=== PATIENT | male | born 1935 | race Caucasian/White ===

== ENCOUNTER → 2018-01-02 10:43 | Day surgery (SDC) | payer MEDICARE ==
[~2018-01-02 10:43] MED LIST: Buffered Lidocaine 0.9% SYRIN* 5 ML/SYR SYRINGE INTRADERM ONE; Lidocain 1% EPI 1:100,000 * 30 ML MDV ONE; Lidocaine 2% PF * 5 ML VIAL ONE; Mineral Oil Sterile, TOPICAL* 25 ML BTL ONE; Naloxone* 0.4 MG/ML 1 ML VIAL IV PRN; Phenylephrine INJ* 10 MG/ML 1 ML VIAL (10 MG) ONE; Propofol* 10 MG/ML 20 ML BTL IV PUSH ONE; ceFAZolin 2 GM PREMIX (*) 2 GM/50 ML BAG IVPB ONE; fentaNYL* 50 MCG/ML 2 ML VIAL (100 MCG VIAL) ONE
[2018-01-02 14:25] VITALS: BP 104/62
== END | disposition home or self-care (01) ==
LOC: OR 10:43
PROVIDERS: ATTEND Plastic Surgery
DX: C44.329 Squamous cell carcinoma of skin of other parts of face (principal); I25.10 Atherosclerotic heart disease of native coronary artery without angina pectoris; I10 Essential (primary) hypertension; Z95.5 Presence of coronary angioplasty implant and graft; Z85.828 Personal history of other malignant neoplasm of skin; Z68.35 Body mass index [BMI] 35.0-35.9, adult; Z87.891 Personal history of nicotine dependence; J30.2 Other seasonal allergic rhinitis
CPT/HCPCS: 88305; 88329; A9270-GY; J0690; J2704; J3010

== ENCOUNTER 2018-02-03 06:08 | Emergency (ER) | payer MEDICARE ==
--- NOTE | 2018-02-03 06:32 | ED ---
Lower Extremity - HPI Summary HPI Summary: Patient is an 82-year-old male who presents emergency department for left leg weakness 5 days. Patient currently resides at home with his sister who is present. Patient notes that about 5 days ago his left leg started feeling "wobbly." He states his leg we'll start no wobbly when he is walking and he has been using a cane on his left side which has rendered him from falling. Patient also notes he's had a headache over the last several days which is new for him. Patient states that this morning he did not have his cane and was walking when his left leg started feeling unsteady and he fell. No head injury or loss of consciousness. He states he's been able to ambulate since fall without pain. Patient doesn't history of back surgery denies increased pain or recent falls. Patient denies numbness, tingling or weakness in legs. No associate symptoms of change in mental status, facial drooping, upper extremity weakness. Past medical history of coronary artery disease, high blood pressure , high cholesterol. Takes 81mg ASA. Symptoms are moderate in severity. No current modifying factors. 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 Pain Intensity: 0 - Allergies/Home Medications Allergies/Adverse Reactions: Allergies Allergy/AdvReac Type Severity Reaction Status Date / Time adhesive Allergy Blisters Verified 02/03/18 06:18 Sulfa (Sulfonamide Allergy Stomach Verified 02/03/18 06:18 Antibiotics) Cramps tramadol Allergy nightmares Verified 02/03/18 06:18 PMH/Surg Hx/FS Hx/Imm Hx Previously Healthy: Yes Endocrine/Hematology History: Denies: Hx Anticoagulant Therapy, Hx Diabetes, Hx Thyroid Disease, Hx Anemia Cardiovascular History: Reports: Hx Angina, Hx Congestive Heart Failure, Hx Coronary Artery Disease, Hx Hypercholesterolemia, Hx Hypertension - W/MEDS, Hx Myocardial Infarction, Hx Pacemaker/ICD Denies: Hx Deep Vein Thrombosis, Hx Valvular Heart Disease, Other Cardiovascular Problems/Disorders Respiratory History: Reports: Hx Asthma, Hx Sleep Apnea Denies: Hx Chronic Obstructive Pulmonary Disease (COPD) GI History: Reports: Hx Gastroesophageal Reflux Disease, Other GI Disorders - inguinal hernia History: Reports: Hx Benign Prostatic Hyperplasia Denies: Hx Kidney Infection, Hx Kidney Stones, Hx Renal Disease, Other Problems/Disorders Musculoskeletal History: Reports: Hx Arthritis - all over, Hx Back Problems, Hx Bursitis, Hx Tendonitis, Other Musculoskeletal History - Left knee replaced, bone spurs neck had sx, Denies: Hx Gout Sensory History: Reports: Hx Cataracts - had sx recently, Hx Contacts or Glasses - glasses, Hx Hearing Problem - mild loss Denies: Hx Hearing Aid Opthamlomology History: Reports: Hx Cataracts - had sx recently, Hx Contacts or Glasses - glasses Neurological History: Denies: Other Neuro Impairments/Disorders Psychiatric History: Denies: Hx Suicide Attempt, Hx of Violent Episodes Against Others, Other Psychiatric Issues/Disorders - Cancer History Cancer Type, Location and Year: skin ca Hx Chemotherapy: No Hx Radiation Therapy: No Hx Palliative Cancer Treatment: No - Surgical History Surgery Procedure, Year, and Place: SPINAL SURGERY BONE SPURS REMOVED FROM NECK 1994 [place]. RIGHT CORONARY ATRERY STENT 1996 [place]. PACEMAKER AND 2009 [facility] [place]. TOTAL KNEE 2009 [place]. ROTATOR CUFF LEFT 1984 [facility]. inguinal hernia 25 yrs ago, [place] strong. EXCISION GROWTH LEFT HIP [place] 1992. hernia repair, 30 yrs ago Hx Anesthesia Reactions: No Infectious Disease History: No Infectious Disease History: Denies: History Other Infectious Disease, Traveled Outside the [place] in Last 30 Days - Social History Occupation: Retired Lives: With Family Alcohol Use: Rare Alcohol Amount: 1 q 2 months Substance Use Type: Reports: None Hx Tobacco Use: Yes Smoking Status (MU): Former Smoker Amount Used/How Often: 1/2 pack a day for 6 yrs Review of Systems Constitutional: Negative Negative: Fever, Chills Eyes: Negative ENT: Negative Cardiovascular: Negative Respiratory: Negative Gastrointestinal: Negative Positive: Other - Left leg weakness Positive: Other - Recent excision to posterior right upper leg Positive: Headache. Negative: Weakness, Paresthesia, Numbness, Syncope, Slurred Speech All Other Systems Reviewed And Are Negative: Yes Physical Exam Triage Information Reviewed: Yes Vital Signs On Initial Exam: Initial Vitals Temp Pulse Resp BP Pulse Ox 97.6 F 73 16 117/86 91 02/03/18 06:12 02/03/18 06:12 02/03/18 06:12 02/03/18 06:12 02/03/18 06:12 Vital Signs Reviewed: Yes Appearance: Positive: Well-Appearing - Pt. lying in bed in NAD. Pleasant and talkative. Daughter present. Skin: Positive: Warm, Dry, Other - Healing incision to posterior right upper leg without signs of infection. Head/Face: Positive: Normal Head/Face Inspection Eyes: Positive: Normal, EOMI Neck: Positive: Supple Respiratory/Lung Sounds: Positive: Clear to Auscultation, Breath Sounds Present Cardiovascular: Positive: Normal, RRR, Murmur Abdomen Description: Positive: Nontender, Soft Musculoskeletal: Positive: Other - 5/5 strength in bilateral LEs with flexion and dorsiflexion. No pain with pelvic rock or rotation of left hip. Neurological: Positive: Normal, Alert, Oriented to Person Place, Time, CN Intact II-III, Unable to Assess Gait, Facial Symmetry, Speech Normal. Negative : Receptive Aphasia, Expressive Aphasia, Cerebellar Dysfunction, Disoriented, Facial Droop, Slurred Speech Psychiatric: Positive: Affect/Mood Appropriate - Rosas Coma Scale Best Eye Response: 4 - Spontaneous Best Motor Response: 6 - Obeys Commands Best Verbal Response: 5 - Oriented Coma Scale Total: 15 Diagnostics - Vital Signs Vital Signs Temp Pulse Resp BP Pulse Ox 02/03/18 06:12 97.6 F 73 16 117/86 91 - Laboratory Result Diagrams: 02/03/18 07:21 02/03/18 07:21 Lab Statement: Any lab studies that have been ordered have been reviewed, and results considered in the medical decision making process. Lower Extremity Course/Dx - Course Course Of Treatment: Pt. presenting with h/a and weakness in his left leg. In the ER he has full strength in his legs and has no neurological deficits. Will obtain labs and CT brain. Pt. has no pain from recent fall and xrays no ordered. Labs are unremarkable other than milldy low mag. PO mag given. Case discussed with Dr. You who recommends outpt. neurology. I attempted to speak with pt.'s PCP, Dr. Quispe, but she has no returned call. Pt. to call her office today to set up a close f.u apt. and referral to neurology. Pt. to use his walker at home. He was able to ambulate in ER with walker without difficulty. Pt. to return to ER if sxs change or worsen. Pt. and sister understand and agree with plan. To continue home medications as directed. CT brain per radiology: IMPRESSION: No intracranial mass or hemorrhage. 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 - Diagnoses Provider Diagnoses: CVA, old, ataxia Discharge - Sign-Out/Discharge Documenting (check all that apply): Patient Departure - Discharge Plan Condition: Good Disposition: HOME Patient Education Materials: Stroke (DC) Referrals: Porter Rock MD [Medical Doctor] - Brandi Quispe MD [Primary Care Provider] - Additional Instructions: Call Dr. Quispe's office today to schedule a close follow up appointment for further evaluation and referral to neurology Use walker at home Continue home medications as directed Return to ER if symptoms change or worsen - Billing Disposition and Condition Condition: GOOD Disposition: Home
[2018-02-03 07:29] LABS: ABS Basophils 0.1 10^3/ul (0-0.2); ABS Eosinophils 0.2 10^3/ul (0-0.6); ABS Lymphocytes 1.8 10^3/ul (1.0-4.8); ABS Monocytes 0.6 10^3/ul (0-0.8); ABS Neutrophils 3.5 10^3/ul (1.5-7.7); ABS Nucleated RBC 0 10^3/ul; Eosinophil % 2.9 % (0-6); Hematocrit 39 % (42-52); Hemoglobin 13.5 g/dl (14.0-18.0); Lymphocyte % 29.2 % (25-47); Mean Corpuscular HGB Conc 34 g/dl (31-36); Mean Corpuscular Hemoglobin 30 pg (27-31); Mean Corpuscular Volume 88 fL (80-94); Mean Platelet Volume 9.3 um3 (7.4-10.4); Nucleated Red Blood Cells % 0.2; Platelet Count 126 10^3/ul (150-450); Red Blood Count 4.49 10^6/ul (4.00-5.40); Red Cell Distribution Width 15 % (10.5-15); White Blood Count 6.2 10^3/ul (3.5-10.8)
[2018-02-03 07:34] LABS: INR 0.96 (0.77-1.02)
--- NOTE | 2018-02-03 07:57 | RAD ---
Indication: Left leg weakness and headaches. CT of the brain performed without IV contrast. Ventricular structures are midline. No midline shift is noted. The extra-axial spaces are unremarkable. There is no evidence of intracranial mass or hemorrhage. Lacunar infarct is noted in the left basal ganglia. No other high or low density lesions are identified. IMPRESSION: No intracranial mass or hemorrhage. 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
[2018-02-03] MEDS ORDERED: Magnesium Oxide TAB* 400 MG PO ONE (08:22)
[2018-02-03 08:51] VITALS: BP 128/77
== END 2018-02-03 08:50 | disposition home or self-care (01) ==
LOC: ED 06:08
DX: R27.0 Ataxia, unspecified (principal); Z86.73 Personal history of transient ischemic attack (TIA), and cerebral infarction without residual deficits; R53.1 Weakness; Z87.891 Personal history of nicotine dependence
CPT/HCPCS: 36415; 70450; 80053; 83735; 85025; 85610; 99282

== ENCOUNTER → 2018-12-09 11:36 | Day surgery (SDC) | payer MEDICARE ==
[~2018-12-09 11:36] MED LIST changes: -Buffered Lidocaine 0.9% SYRIN* 5 ML/SYR SYRINGE INTRADERM ONE; +Buffered Lidocaine 1% SYRIN* 1 ML/SYRINGE INTRADERM ONE; +Bupivacaine 0.25% SDV PF* 10 ML VIAL INJ ONE; +Lactated Ringers 1000 ML Bag* 1,000 ML IV SCH; -Lidocain 1% EPI 1:100,000 * 30 ML MDV ONE; +Lidocaine 1% w EPI 1:100,000* 30 ML VIAL ONE; -Lidocaine 2% PF * 5 ML VIAL ONE; +Midazolam* 1 MG/ML 2 ML VIAL (2 MG) ONE; -Phenylephrine INJ* 10 MG/ML 1 ML VIAL (10 MG) ONE; -Propofol* 10 MG/ML 20 ML BTL IV PUSH ONE; +Propofol* 10 MG/ML 20 ML BTL ONE; -ceFAZolin 2 GM PREMIX (*) 2 GM/50 ML BAG IVPB ONE; +ceFAZolin 2 GM in NS PREMIX(*) 2 GM/100 ML BAG IVPB ONE
[2018-12-09 17:06] VITALS: BP 116/68
== END | disposition home or self-care (01) ==
LOC: OR 11:36
PROVIDERS: ATTEND Plastic Surgery
DX: C44.329 Squamous cell carcinoma of skin of other parts of face (principal); I48.0 Paroxysmal atrial fibrillation; Z95.0 Presence of cardiac pacemaker; Z79.01 Long term (current) use of anticoagulants; R53.82 Chronic fatigue, unspecified; I25.10 Atherosclerotic heart disease of native coronary artery without angina pectoris; Z87.891 Personal history of nicotine dependence; I10 Essential (primary) hypertension; Z86.73 Personal history of transient ischemic attack (TIA), and cerebral infarction without residual deficits; K21.9 Gastro-esophageal reflux disease without esophagitis; E78.5 Hyperlipidemia, unspecified
CPT/HCPCS: 88305; 88331; 88332; A9270-GY; J0690; J2250; J2704; J3010; J3490

== ENCOUNTER → 2019-01-27 05:30 | Day surgery (SDC) | payer MEDICARE ==
[~2019-01-27 05:30] MED LIST changes: +Dexamethasone IV* 4 MG/ML 1 ML (4 MG) ONE; +DiMENhydriNATE IV* 50 MG/ML VIAL IV PUSH PRN; +Famotidine IV* 10 MG/ML 2 ML (20 mg) IV ONE; +Famotidine IV* 10 MG/ML 2 ML (20 mg) ONE; +Levalbuterol 0.63MG/3ML NEB* UNIT OF USE INH PRN; -Lidocaine 1% w EPI 1:100,000* 30 ML VIAL ONE; +Lidocaine 2% PF * 5 ML VIAL ONE; -Midazolam* 1 MG/ML 2 ML VIAL (2 MG) ONE; +Midazolam* 1 MG/ML 5 ML VIAL (5 MG) ONE; -Mineral Oil Sterile, TOPICAL* 25 ML BTL ONE; +Ondansetron INJ* 2 MG/ML VIAL ONE; +ceFAZolin 2 GM PREMIX in ORs 2 GM/50 ML BAG ONE; -ceFAZolin 2 GM in NS PREMIX(*) 2 GM/100 ML BAG IVPB ONE; +fentaNYL* 50 MCG/ML 2 ML VIAL (100 MCG VIAL) IV PRN
[2019-01-27 09:19] VITALS: BP 124/80
== END | disposition home or self-care (01) ==
LOC: OR 05:30
PROVIDERS: ATTEND Plastic Surgery
DX: G56.02 Carpal tunnel syndrome, left upper limb (principal); I10 Essential (primary) hypertension; I25.10 Atherosclerotic heart disease of native coronary artery without angina pectoris; Z95.5 Presence of coronary angioplasty implant and graft; I48.0 Paroxysmal atrial fibrillation; J44.9 Chronic obstructive pulmonary disease, unspecified; Z86.73 Personal history of transient ischemic attack (TIA), and cerebral infarction without residual deficits; M19.90 Unspecified osteoarthritis, unspecified site; Z85.828 Personal history of other malignant neoplasm of skin; Z79.01 Long term (current) use of anticoagulants
CPT/HCPCS: J0690; J1100; J2250; J2405; J2704; J3010; J3490

== ENCOUNTER 2019-02-17 13:12 | Emergency (ER) | payer MEDICARE ==
--- OUTSIDE RECORDS SUMMARY | 2019-02-17 13:33 | XMS REPORT | Summary of Care ---
:1935 Author Organization [facility] Address [address] [facility] [place] [address] Care Team Providers Name Role Phone Brandi Quispe MD Primary Care Provider Reason for Visit Reason Comments Medication Check had CVA almost a year ago. Needs to get Eliquis from us. Need labs Medication Refill pending Encounter Details Date Type Department Care Team Description 01/07/2019 Office Visit [facility] Brandi Quispe MD PAF (paroxysmal atrial fibrillation) ([facility]) (Primary Dx); Medicine [address] Chronic obstructive pulmonary disease, unspecified COPD type ([facility]); [address] [place] [address] SOB (shortness of breath); [place] [address] Essential hypertension; [phone] Lumbar pain; TIA (transient ischemic attack); Coronary artery disease involving [place] coronary artery of [place] heart without angina pectoris Allergies Active Allergy Reactions Severity Noted Date Comments Sulfa Antibiotics 05/01/2004 "STOMACH CRAMPS" Tape: Silk Or Adhesive Rash 02/02/2016 Tramadol TURNER IN Reaction 04/27/2014 Bad dreams and constipaton documented as of this encounter (statuses as of 01/07/2019) Medications Medication Sig Dispensed Refills Start End Date Status Date aspirin (ECOTRIN) 81 Take 81 mg by 0 Active MG Oral Tab EC mouth DAILY. Diclofenac Sodium 1 % Place 4 g 1 Tube 3 Active Transdermal Gel onto skin 7 FOUR TIMES DAILY NEEDED (low back pain). fluticasone (FLONASE) [place] 2 1 Bottle 1 Active 50 MCG/ACT Nasal Sprays in 8 SuspensionIndications nose DAILY. : Rhinitis, unspecified type Tamsulosin HCl Take 1 Cap by 90 Cap 3 Active (FLOMAX) 0.4 MG Oral mouth DAILY. 8 Cap gabapentin Take 1 Cap by 270 Cap 1 Active (NEURONTIN) 100 MG mouth THREE 9 Oral CapIndications: TIMES DAILY. Lumbar pain pantoprazole Take 1 Tab by 90 Tab 1 Active (PROTONIX) 40 MG Oral mouth DAILY. 9 Tab ECIndications: Gastroesophageal reflux disease without esophagitis finasteride (PROSCAR) Take 1 Tab by 90 Tab 3 Active 5 MG Oral mouth DAILY. 9 TabIndications: Benign prostatic hyperplasia, unspecified whether lower urinary tract symptoms present simvastatin (ZOCOR) Take 1 Tab by 90 Tab 3 Active 40 MG Oral mouth EVERY 9 TabIndications: BEDTIME. Essential hypertension furosemide (LASIX) 20 Take 1 Tab by 90 Tab 3 Active MG Oral mouth DAILY 9 TabIndications: SOB NEEDED (shortness of breath) (swelling in feet). metoprolol succinate Take 0.5 Tabs 45 Tab 3 Active (TOPROL XL) 25 MG by mouth 9 Oral TABLET SR 24 DAILY. HRIndications: SOB (shortness of breath) apixaban (ELIQUIS) 5 Take 1 Tab by 180 Tab 3 Active MG Oral mouth TWICE 9 TabIndications: PAF DAILY. (paroxysmal atrial fibrillation) (HCC) METHOCARBAMOL PO Take by 0 01/08/20 Discontinued mouth. 19 mupirocin (BACTROBAN) Apply to open 22 g 1 01/08/20 Discontinued 2 % Apply externally areas BID 7 19 Ointment fluorouracil (EFUDEX) Apply thin 40 g 0 01/08/20 Discontinued 5 % Apply externally film to spots 7 19 CreamIndications: on hands and Actinic keratosis forearms twice daily. Minimum of 2 weeks and maximum of 4 weeks. apixaban (ELIQUIS) 5 Take by 0 01/08/20 Discontinued MG Oral Tab mouth TWICE 19 (Reorder) DAILY. 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 Meneses, 11/2006. Has 96% circumflex blockage that cannot be addressed surgically. Pacemaker 10/07/2007 Overview: Placed in 2001. Coronary stent 06/13/1996 Personal history of PA (myocardial infarction) 08/12/1995 Cardiac pacemaker in situ documented as of this encounter (statuses as of 01/07/2019) Resolved Problems Problem Noted Date Resolved Date Other specified pre-operative examination 02/07/2011 10/06/2013 documented as of this encounter (statuses as of 01/07/2019) Immunizations Name Administration Dates Next Due Depo Medrol (80mg) 11/01/2010 Influenza (IM) Preservative Free 04/08/2012, 02/21/2010 Influenza Vaccine High Dose 06/23/2015, 03/16/2014 Influenza Vaccine Whole 04/07/2007 PNEUMOCOCCAL POLYSACCHARIDE VACCINE 09/19/2016 Pneumococcal Conjugate(13 Valent) 04/27/2014 documented as of this encounter Social History Tobacco Use Types Packs/Day Years Used Date Former Smoker Cigarettes Quit: 05/13/1963 Smokeless Tobacco: Former User Comments: 1962 Alcohol Use Drinks/Week oz/Week Comments Yes 1 Glasses of wine 1.0 rare Sex Assigned at Date Recorded Not on file Job Start Date Occupation Industry Not on file Not on file Not on file Travel History Travel Start Travel End No recent travel history available. documented as of this encounter Last Filed Vital Signs Vital Sign Reading Time Taken Comments Blood Pressure 139/67 01/07/2019 1:22 PM EDT Pulse 85 01/07/2019 1:22 PM EDT Temperature - - Respiratory Rate - - Oxygen Saturation 93% 01/07/2019 1:22 PM EDT Inhaled Oxygen Concentration - - Weight 112 kg (247 lb) 01/07/2019 1:22 PM EDT Height 182.9 cm (6') 01/07/2019 1:22 PM EDT Body Mass Index 33.5 01/07/2019 1:22 PM EDT documented in this encounter Patient Instructions Patient InstructionsBrandi Quispe MD - 01/07/2019 1:40 PM EDTPlan conintue eliquis- Check on renal function today documented in this encounter Progress Notes Brandi Quispe MD - 01/07/2019 1:40 PM EDT NAME:Feliciano Bradshaw [birth year] ENC Date: 01/07/2019 CC: Chief Complaint Patient presents with Medication Check had CVA almost a year ago. Needs to get Eliquis from us. Need labs Medication Refill pending Feliciano Bradshaw is a 83-y.o. male Last note from Dr Meneses sanctioned ontinued use of eliquis for diagnosis of Paroxysmal atrial fibrillation - 2. Doing better after back surgery- also getting shots in the sacroiliac joint - 3. Following with consulting psychologist Current Outpatient Medications Medication Sig apixaban (ELIQUIS) 5 MG Oral Tab Take 1 Tab by mouth TWICE DAILY. aspirin (ECOTRIN) 81 MG Oral Tab EC Take 81 mg by mouth DAILY. Diclofenac Sodium 1 % Transdermal Gel Place 4 g onto skin FOUR TIMES DAILY NEEDED (low back pain). finasteride (PROSCAR) 5 MG Oral Tab Take 1 Tab by mouth DAILY. fluticasone (FLONASE) 50 MCG/ACT Nasal Suspension [place] 2 Sprays in nose DAILY. furosemide (LASIX) 20 MG Oral Tab Take 1 Tab by mouth DAILY NEEDED ( swelling in feet). gabapentin (NEURONTIN) 100 MG Oral Cap Take 1 Cap by mouth THREE TIMES DAILY. metoprolol succinate (TOPROL XL) 25 MG Oral TABLET SR 24 HR Take 0.5 Tabs by mouth DAILY. pantoprazole (PROTONIX) 40 MG Oral Tab EC Take 1 Tab by mouth DAILY. simvastatin (ZOCOR) 40 MG Oral Tab Take 1 Tab by mouth EVERY BEDTIME. Tamsulosin HCl (FLOMAX) 0.4 MG Oral Cap Take 1 Cap by mouth DAILY. No current facility-administered medications for this visit. Patient Active Problem List Diagnosis Date Noted Cardiac pacemaker in situ Priority: High CAD (coronary artery disease) 10/07/2007 Priority: High S/P catheterization, Dr. Meneses, 11/2006. Has 96% circumflex blockage that cannot be addressed surgically. 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 Personal history of PA (myocardial infarction) 08/12/1995 Family History Problem Relation Age of Onset Seizures Mother Parkinson's Arthritis Mother Heart Mother Heart Disease Mother Heart Father Skin Cancer Father Heart Disease Father Arthritis Father Hypertension Father Cancer Father Stroke Father Clotting Disorder Father Arthritis Sister Arthritis Brother Arthritis Maternal Grandfather Anesth Problems No family history Diabetes No family history Kidney Disease No family history Thyroid Disease No family history No cardiopulmonary symptoms No upper or lower GI complaints No urinary tract symptoms. No bruising/ bleeding. No neurological complaints . No insomnia.+ . Social History Tobacco Use Smoking status: Former Smoker Types: Cigarettes Last attempt to quit: 05/13/1963 Years since quittin.6 Smokeless tobacco: Former User Tobacco comment: 1962 Substance Use Topics Alcohol use: Yes Alcohol/week: 1.0 standard drinks Types: 1 Glasses of wine per week Comment: rare Drug use: No Types: Prescription OBJECTIVE: BP 139/67 | Pulse 85 | Ht 6' (1.829 m) | Wt 247 lb (112 kg) | SpO2 93% | BMI 33.50 kg/m . Heent Negative Facial skin - Lot of lesions Neck no JVD, thyromegaly or bruit Lungs Clear CV rrr Abd soft, nontender, no organomegaly Ext 1+ edema; no lesions Neuro: intellect intact ; motor including gait unremarkable A/P ICD-9-CM ICD-10-CM 1. PAF (paroxysmal atrial fibrillation) ([facility]) 427.31 I48.0 apixaban (ELIQUIS) 5 MG Oral Tab BASIC METABOLIC PANEL BASIC METABOLIC PANEL CBC WITH DIFFERENTIAL 2. Chronic obstructive pulmonary disease, unspecified COPD type ([facility]) 496 J44.9 3. SOB (shortness of breath) 786.05 R06.02 4. Essential hypertension 401.9 I10 5. Lumbar pain 724.2 M54.5 6. TIA (transient ischemic attack) 435.9 G45.9 7. Coronary artery disease involving [place] coronary artery of [place] heart without angina pectoris 414.01 I25.10 Patient Instructions Plan conintue eliquis- Check on renal function today AUTHOR: Brandi Quispe MD 14:11 01/07/2019 documented in this encounter Plan of Treatment Name Type Priority Associated Diagnoses Order Schedule BASIC METABOLIC PANEL Lab Routine PAF (paroxysmal atrial Expected: 2018 fibrillation) ([facility]) (Approximate), Expires: 07/06/2019 BASIC METABOLIC PANEL Lab Routine PAF (paroxysmal atrial Expected: 2018 fibrillation) ([facility]) (Approximate), Expires: 07/06/2019 CBC WITH DIFFERENTIAL Lab Routine PAF (paroxysmal atrial Expected: 2018 fibrillation) ([facility]) (Approximate), Expires: 07/06/2019 Health Maintenance Due Date Last Done Comments HIV SCREENING 1950 ZOSTER IMMUNIZATION SERIES 1986 (1 of 2) MEDICARE ANNUAL WELLNESS 04/08/2013 04/08/2012 VISIT INFLUENZA VACCINE (#1) 2019 06/23/2015, 03/16/2014, 04/08/2012, Additional history exists COLONOSCOPY SCREENING 04/20/2019 04/20/2014, 04/17/2011, 04/02/2006, Additional history exists DEPRESSION SCREENING 01/08/2020 01/07/2019 FALL RISK ASSESSMENT 01/08/2020 01/07/2019, 01/07/2019 PNEUMOCOCCAL 65+YRS Completed 09/19/2016, 04/27/2014 HPV IMMUNIZATION SERIES Aged Out No longer eligible based on patient's age to complete this topic MENINGOCOCCAL VACCINE IMM Aged Out No longer eligible based on patient's age to complete this topic documented as of this encounter Goals Goal Patient Goal Associated Recent Patient-Stated? Author Type Problems Progress Blood Pressure Blood Pressure 139/67 No Jose Enrique, < 150/90 (01/07/2019 MD Brandi 1:22 PM EDT) Note: This is an individualized treatment (blood pressure) goal for Feliciano Bradshaw: Displayed above (on the left) is your goal for blood pressure control. Your most recent blood pressure is also shown above, on the right. You should try to achieve blood pressures that are lower than your goal listed above (on the left). Weight loss vs. 18 mo max Lifestyle 0 (01/07/2019 1:22 PM EDT) No Brandi Quispe MD (lbs) >= 10 Note: This is an individualized lifestyle goal for Feliciano Bradshaw: Your body mass index (BMI) is more than 30. You should lose weight. A reasonable starting goal is to lose 10 pounds. Displayed above is how many pounds you have lost thus far towards your 10 pound weight loss goal. Keep immunizations current Lifestyle No Brandi Quispe MD Note: This is an individualized lifestyle goal for Feliciano Bradshaw: Please be sure to keep up-to-date on recommended immunizations. For example, this would include a yearly influenza vaccine. Immunization status can be seen by looking at the Health Maintenance sections of your [facility], Plan of Care, and any After Visit Summaries. Take all prescribed medications as directed Self-management No Brandi Quispe MD Note: This is an individualized self-management goal for Feliciano Bradshaw: Please take all prescribed medications as directed. 1. Do not skip doses. If you cannot afford your medications, talk with your doctor. 2. Use a pill reminder system such as a pill box if needed. Your pharmacist can help you with this. 3. Contact your Pharmacy 5 days before your medication runs out. If you cannot take your medications for any reasons, talk with your doctor. 4. Please bring all of your medication bottles and inhalers (or a list of all your medications/inhalers) with you to every visit. Potential barriers to meeting all of your care plan goals will continue to be addressed on an ongoing basis. documented as of this encounter Implants Implanted Type Area Medical Radiation Tech Device Shelf Model / Identifier Expiration Serial / Lot Date Bone Cement, Double 80gm - [id number] Left: DEPUY [id number] / Implanted: Qty: 1 on 02/06/2011 at [facility] Knee / [id number] Lps-Flex Taper Plugs - [id number] Left: [facility] / Implanted: Qty: 1 on 02/06/2011 at [facility] [employer]nee [employer] / [id number] Lps-Flex Option Femoral F Left - [id number] Left: ELISABET NICOLE 5964- [id number] / Implanted: Qty: 1 on 02/06/2011 at [facility] [employer] / [id number] Tibial Plate Size 6 Nexgen - [id number] Left: ELISABET RIVERA [id number]- 02 / Implanted: Qty: 1 on 02/06/2011 at [facility] [employer] / [id number] Art Surface 10mm Green - [id number] Left: [facility] / Implanted: Qty: 1 on 02/06/2011 at [facility] [employer] / [id number] documented as of this encounter Results Not on filedocumented in this encounter Visit Diagnoses Diagnosis PAF (paroxysmal atrial fibrillation) (HCC) - Primary Atrial fibrillation Chronic obstructive pulmonary disease, unspecified COPD type (HCC) SOB (shortness of breath) Shortness of breath Essential hypertension Unspecified essential hypertension Lumbar pain Lumbago TIA (transient ischemic attack) Unspecified transient cerebral ischemia Coronary artery disease involving [place] coronary artery of [place] heart without angina pectoris documented in this encounter Insurance Payer Benefit Plan / Subscriber ID Effective Dates Phone Address Type Group [facility] xxxxxxxxxxx 2016-Present [facility] OPTIONS MEDICARE MEDICARE PART A xxxxxxxxxxx 2001-Present Medicare & B (Home) [address] [phone] [place], [place] (Work) [id number] documented as of this encounter
--- NOTE | 2019-02-17 14:02 | ED ---
Shortness of Breath - HPI Summary HPI Summary: 83 year old M brought in by EMS to [facility] accompanied by sister Marimar complains of shortness of breath since 2 days ago (02/15/19), worse since today 02/17/19. Patient reports productive cough, diaphoresis, mild dizziness lasting several minutes which has since resolved since this morning. Sister reports one episode of diarrhea this morning. Sister states that patient "looked pink" this morning. He denies fever, chest pain, chest pressure, nausea/vomiting, bilateral calf pain, swelling of bilateral lower extremities, abdominal pain. Sister states that she took patient's blood pressure today 02/17/19 and it was hypotensive. Sister states that she used an automatic wrist cuff to measure his blood pressure which was 76/58. Sister states that she then took a manual blood pressure reading which was 80/60. Sister states HR 68 and irregular rhythm ( skipping beats). Sister states respiration 20. PMHx: atrial fibrillation, [employer] pacemaker. PMHx: CA. Patient states that when he had his CA, he had a pulsating sensation in his left neck and pain in between his bilateral shoulders. Patient states he feels the pulsating sensation in his right neck today 02/17/19 but not the pain in between his bilateral shoulders. Patient states he does not wear nasal cannula oxygen at home. Sister states he arrived to the ED wearing 4L nasal cannula oxygen. Patient is wearing 2L nasal cannula oxygen in room. Denies PMHx pneumonia. Patient has not received influenza vaccination yet. Sister states that they called Dr. Meneses, patient's primary care provider, who referred patient to the ED. The patient rates the pain 0/10 in severity per nurse triage note. Symptoms aggravated by nothing. Symptoms alleviated by nothing. Vital signs while in room: HR 63 BPM, BP 129/78, O2 sat 96% with 2L oxygen nasal cannula, O2 sat 97% without 2L oxygen nasal cannula Home Medications Medication Instructions Recorded Confirmed Type Finasteride [Proscar] 5 mg PO QAM 07/31/12 02/17/19 History Tamsulosin CAP* [Flomax CAP*] 0.4 mg PO QAM 06/24/14 02/17/19 History Acetaminophen TAB* [Tylenol TAB*] 325 mg PO QAM 12/26/17 02/17/19 History Aspirin 81 mg CHEW TAB* 81 mg PO QAM 12/26/17 02/17/19 History Cetirizine* [ZyrTEC 10 MG TAB*] 10 mg PO QAM 12/26/17 02/17/19 History Fluticasone NASAL SPRAY 50MCG* 1 spray BOTH NARES DAILY PRN 12/26/17 02/17/19 History [Flonase NASAL SPRAY 50MCG*] Furosemide [Lasix] 10 mg PO QAM 12/26/17 02/17/19 History Gabapentin [Neurontin] 100 mg PO QAM 12/26/17 02/17/19 History Metoprolol Succinate 12.5 mg PO QAM 12/26/17 02/17/19 History Simvastatin [Zocor] 40 mg PO QPM 12/26/17 02/17/19 History Apixaban* [Eliquis*] 5 mg PO BID 11/25/18 02/17/19 History Calcium Carbonate CHEW TAB* [Tums*] 500 mg PO BID 02/17/19 02/17/19 History Diclofenac 1% GEL (NF) [Voltaren 1 applic TOPICAL DAILY 02/17/19 02/17/19 History 1% GEL (NF)] Pantoprazole TAB * [Protonix TAB*] 40 mg PO DAILY 02/17/19 02/17/19 History - History of Current Complaint Chief Complaint: EDShortnessOfBreath Time Seen by Provider: 02/17/19 13:51 Hx Obtained From: Patient, Family/Steam Hoist Operator - sister Marimar, [facility] Onset/Duration: Gradual Onset, Lasting Days - 2 (02/15/19), Still Present, Worse Since - today 02/17/19 Timing: Constant Current Severity: None Dyspnea At: Exertion Aggravating Factors: Nothing Alleviating Factors: Nothing Associated Signs & Symptoms: Cough (Productive), Diaphoresis - Allergy/Home Medications Allergies/Adverse Reactions: Allergies Allergy/AdvReac Type Severity Reaction Status Date / Time adhesive Allergy Intermediate Blisters Verified 02/17/19 13:40 Sulfa (Sulfonamide Allergy Mild Stomach Verified 02/17/19 13:40 Antibiotics) Cramps tramadol Allergy Mild nightmares Verified 02/17/19 13:40 Home Medications: Home Medications Calcium Carbonate CHEW TAB* [Tums*] 500 mg PO BID 02/17/19 [History Confirmed ] Diclofenac 1% GEL (NF) [Voltaren 1% GEL (NF)] 1 applic TOPICAL DAILY 02/17/19 [ History Confirmed 02/17/19] Pantoprazole TAB * [Protonix TAB*] 40 mg PO DAILY 02/17/19 [History Confirmed ] PMH/Surg Hx/FS Hx/Imm Hx Previously Healthy: No Endocrine/Hematology History: Denies: Hx Anticoagulant Therapy, Hx Bone Marrow Disease, Hx Diabetes, Hx Sickle Cell Disease, Hx Thyroid Disease, Hx Anemia Cardiovascular History: Reports: Hx Atrial Fibrillation, Hx Coronary Artery Disease, Hx Hypercholesterolemia, Hx Hypertension - on medication for, Hx Myocardial Infarction, Hx Pacemaker/ICD - [employer] Denies: Hx Angina, Hx Cardiomegaly, Hx Congestive Heart Failure, Hx Deep Vein Thrombosis, Hx Peripheral Vascular Disease, Hx Rheumatic Fever, Hx Valvular Heart Disease Respiratory History: Denies: Hx Asthma, Hx Chronic Obstructive Pulmonary Disease (COPD), Hx Pulmonary Edema, Hx Pulmonary Embolism GI History: Reports: Hx Gastroesophageal Reflux Disease - on medication for, Hx Hiatal Hernia, Other GI Disorders - inguinal hernia Denies: Hx Cirrhosis, Hx Crohn's Disease, Hx Irritable Bowel, Hx Jaundice, Hx Ulcer History: Reports: Hx Benign Prostatic Hyperplasia Denies: Hx Kidney Infection, Hx Kidney Stones, Hx Renal Disease, Other Problems/Disorders Musculoskeletal History: Reports: Hx Arthritis, Hx Back Problems, Other Musculoskeletal History - spinal stenosis, carpal tunnel Denies: Hx Bursitis, Hx Gout, Hx Tendonitis Sensory History: Reports: Hx Cataracts, Hx Contacts or Glasses - glasses, Hx Hearing Problem - mild loss Denies: Hx Glaucoma, Hx Hearing Aid Opthamlomology History: Reports: Hx Cataracts, Hx Contacts or Glasses - glasses Denies: Hx Glaucoma Neurological History: Reports: Hx CVA Denies: Hx Headaches, Hx Migraine, Hx Nerve Disease, Hx Seizures Psychiatric History: Denies: Hx Anxiety, Hx Depression, Hx Suicide Attempt, Hx of Violent Episodes Against Others, Other Psychiatric Issues/Disorders - Cancer History Cancer Type, Location and Year: skin ca Hx Chemotherapy: No Hx Radiation Therapy: No Hx Palliative Cancer Treatment: No - Surgical History Surgery Procedure, Year, and Place: SPINAL SURGERY BONE SPURS REMOVED FROM NECK 1994 [place]. RIGHT CORONARY ATRERY STENT 1996 [place]. PACEMAKER AND 2009 [facility] [place]. Left TOTAL KNEE 2009 [place]. ROTATOR CUFF LEFT 1984 [facility]. inguinal hernia 25 yrs ago, [place]. Right hip growth and fluid removal--,2015 ,2016. Left hip growth and fluid removal--1992. EXCISION GROWTH LEFT HIP [place] 1992. hernia repair, 30 yrs ago. left knee Hx Anesthesia Reactions: No Infectious Disease History: No Infectious Disease History: Denies: Hx Hepatitis, History Other Infectious Disease, Traveled Outside the [place] in Last 30 Days - Family History Known Family History: Positive: Cardiac Disease - coronary artery disease in both parents - Social History Alcohol Use: Rare Alcohol Amount: monthly Substance Use Type: Reports: None Hx Tobacco Use: Yes Smoking Status (MU): Former Smoker Type: Cigarettes Amount Used/How Often: 1/2 pack a day for 6 yrs Have You Smoked in the Last Year: No Review of Systems Positive: Skin Diaphoresis. Negative: Fever Positive: Other - pulsating sensation in right neck Cardiovascular: Negative - Chest pressure Positive: Other - hypotension. Negative: Chest Pain Positive: Shortness Of Breath, Cough Positive: Diarrhea. Negative: Abdominal Pain, Vomiting, Nausea Positive: no symptoms reported Musculoskeletal: Negative - bilateral calf pain, swelling of bilateral lower extremities, pain in between his bilateral shoulders Skin: Negative Neurological: Other - Dizziness Psychological: Normal All Other Systems Reviewed And Are Negative: Yes Physical Exam - Summary Physical Exam Summary: Appearance: Well-appearing, minimal pain distress due to right side of neck discomfort, obese, patient is wearing nasal cannula Skin: Warm, color reflects adequate perfusion, dry, multiple excoriated and crusted lesions on his face and extremities Head: Normal Head/Face inspection, atraumatic, dark lesion on right cheek on level of zygoma Eyes: Conjunctiva clear ENT: Normal inspection Neck: Supple, no nodes, no JVD, no bruits Respiratory: Decreased breath sounds, no respiratory distress Cardio: RRR, No murmur, pulses normal, brisk capillary refill, pacemaker in his left upper chest Abdomen: Soft, nontender Bowel sounds: Present Musculoskeletal: Strength Intact/ROM intact, no calf tenderness, no edema. Psychological: Normal Neuro: Alert, muscle tone normal, no focal deficit Triage Information Reviewed: Yes Vital Signs On Initial Exam: Initial Vitals Temp Pulse Resp BP Pulse Ox 98.0 F 71 12 103/72 96 02/17/19 13:19 02/17/19 13:19 02/17/19 13:19 02/17/19 13:19 02/17/19 13:19 Vital Signs Reviewed: Yes Procedures - Sedation Patient Received Moderate/Deep Sedation with Procedure: No Diagnostics - Vital Signs Vital Signs Temp Pulse Resp BP Pulse Ox 02/17/19 13:19 98.0 F 71 12 103/72 96 - Laboratory Result Diagrams: 02/17/19 14:31 02/17/19 14:31 Lab Statement: Any lab studies that have been ordered have been reviewed, and results considered in the medical decision making process. - Radiology CXR Radiology Interpretation Completed By: Radiologist Summary of Radiographic Findings: NO ACTIVE CARDIOPULMONARY DISEASE. ED physician has reviewed this report. - CT Chest CTA CT Interpretation Completed By: Radiologist Summary of CT Findings: 1. Pacemaker in position. 2. Negative CTA chest. No pulmonary embolism is identified. ED physician has reviewed this report. - EKG 1431 Cardiac Rate: NL - 76 BPM, Other Rate - 100% paced ST Segment: Non-Specific Ectopy: None EKG Comparison: No Significant Change - 06/23/14 Summary of EKG Findings: An EKG at 14:10 reveals 100% paced at 76 BPM. No acute changes. Similar to prior EKG on 06/23/14. ED MD has reviewed and interpreted this EKG. 1842 Cardiac Rate: NL - 65 BPM, Other Rate - 100% paced ST Segment: Non-Specific Ectopy: None EKG Comparison: No Significant Change - EKG on 02/17/19 at 14:31 Summary of EKG Findings: An EKG at 18:42 reveals 100% paced at 65 BPM. No acute changes. Similar to prior EKG on 02/17/19 at 14:31. ED MD has reviewed and interpreted this EKG. Re-Evaluation - Re-Evaluation First Eval Re-Evaluation Time: 16:04 Change: Unchanged Comment: nurse Maricruz states she spoke with [employer] who states that his pacemaker is fine Second Eval Re-Evaluation Time: 18:26 Change: Unchanged Comment: BP is fluctuating from 97/63 to 130/80. Sister states more paced beats than usual. Patient denies chest pain, shortness of breath while sitting in stretcher. We will check CTA, repeat EKG, troponin Third Eval Re-Evaluation Time: 21:52 Change: Unchanged Comment: patient given CTA Chest and repeat EKG findings. he is agreeable to discharge Fourth Eval Re-Evaluation Time: 22:03 Change: Improved Comment: patient is ambulating in the ED on RA without drop in O2 sats below 92% , and without chest pain Course/Dx - Course Course Of Treatment: 83 year old M brought in by EMS to [facility] accompanied by sister Marimar complains of shortness of breath since 2 days ago (02/15/19), worse since today 02/17/19. Patient reports productive cough, diaphoresis, mild dizziness lasting several minutes which has since resolved since this morning. Sister reports one episode of diarrhea this morning. Sister reports hypotension. Patient reports pulsating sensation in neck similar to when he had CA. Physical exam findings: The patient is well-appearing, in minimal pain distress due to right side of neck discomfort, obese, wearing nasal cannula. He has multiple excoriated and crusted lesions on his face and extremities. He has a dark lesion on right cheek on level of zygoma. He has a pacemaker in his left upper chest. He has decreased breath sounds. Patient medications reviewed this visit. Nurses notes reviewed. Allergies noted. Bloodwork results with no significant abnormalities except for INR 1.26, BUN 25, BUN/creatinine 24.8, glucose 109, BNP 138, total protein 6.1. Troponin I is 0.01. Urinalysis results with no significant abnormalities except for ascorbic acid. Rapid flu tests negative for Influenza A and B. An EKG at 14:10 reveals 100% paced at 76 BPM. No acute changes. Similar to prior EKG on 06/23/14. ED MD has reviewed and interpreted this EKG. CXR shows, per radiologist: NO ACTIVE CARDIOPULMONARY DISEASE. ED MD has reviewed this report. [employer] pacemaker interrogation was fine per nurse Maricruz who spoke with Shukri from [employer]. BP continues to fluctuate from 97/63 to 130/80 in the ED. Sister states more paced beats than usual on the monitor in the ED as she is with patient. Patient denies chest pain , shortness of breath while sitting in stretcher. We will check CTA, repeat EKG , troponin. CTA shows, per radiologist: 1. Pacemaker in position. 2. Negative CTA chest. No pulmonary embolism is identified. Repeat EKG done at 18:42 reveals 100% paced at 65 BPM. No acute changes. Similar to prior EKG on 02/17/19 at 14:31. ED MD has reviewed and interpreted this EKG. Troponin II at 18:42 is 0.01. Pt was able to ambulate in the ED without oxygen, twice around the ED, without O2 sats dropping below 92%. The patient feels better and would like to go home. Patient will be discharged home with follow up from Dr. Quispe, his primary care provider, in 2-3 days. He was given a copy of his imaging and lab findings. Patient was instructed to return to Emergency Department for new or worsening symptoms. Patient understands and is agreeable to this plan. SisterMarimar is also agreeable with this plan. - Diagnoses Provider Diagnoses: Dyspnea, Encounter for care of pacemaker, History of hypotension Discharge ED - Sign-Out/Discharge Documenting (check all that apply): Patient Departure - Discharge - Discharge Plan Condition: Stable Disposition: HOME Patient Education Materials: Dyspnea (ED) Referrals: Brandi Quispe MD [Primary Care Provider] - 2 Days Additional Instructions: We gave you a copy of your studies done today. We did not find any serious or emergency condition to explain your shortness or breath. Your oxygen saturation levels were 92-94% while walking in the ER without oxygen. Please follow up with Dr. Quispe in the next 2-3 days, and please return to the Emergency Department for new or worsening symptoms. - Billing Disposition and Condition Condition: STABLE Disposition: Home - Attestation Statements Document Initiated by Becky: Yes Documenting Scribe: Alla Gimenez Provider For Whom Becky is Documenting (Include Credential): Cindy Peterson MD Scribe Attestation: Alla Serrano, scribed for Cindy Peterson MD on 03/09/19 at 2109. Scribe Documentation Reviewed: Yes Provider Attestation: The documentation as recorded by the Alla leonardo accurately reflects the service I personally performed and the decisions made by me, Cindy Peterson MD Status of Scribe Document: Viewed
[2019-02-17 14:23] LABS: Influenza A Molecular NEGATIVE (Negative); Influenza B Molecular NEGATIVE (Negative)
[2019-02-17 14:43] LABS: ABS Eosinophils 0.1 10^3/ul (0-0.6); ABS Lymphocytes 2.3 10^3/ul (1.0-4.8); ABS Monocytes 0.6 10^3/ul (0-0.8); Hematocrit 42 % (42-52); Hemoglobin 14.3 g/dL (14.0-18.0); Lymphocyte % 33.3 %; Mean Corpuscular HGB Conc 34 g/dL (31-36); Mean Corpuscular Hemoglobin 31 pg (27-31); Mean Corpuscular Volume 90 fL (80-94); Nucleated Red Blood Cells % 0.2; Platelet Count 159 10^3/uL (150-450); Red Blood Count 4.64 10^6 /uL (4.18-5.48); Red Cell Distribution Width 14 % (10-15)
[2019-02-17 14:50] LABS: Activated Partial Thrombo Time 37.6 seconds (26.0-38.0); INR 1.26 (0.82-1.09)
[2019-02-17 14:59] LABS: Albumin 3.9 g/dL (3.2-5.2); Albumin/Globulin Ratio 1.8 (1-3); BUN/Creatinine Ratio 24.8 (8-20); C Reactive Protein 5.83 mg/L (<8.01); Calcium 8.9 mg/dL (8.6-10.3); EGFR African American 85.6 (>60); EGFR Non-African American 70.7 (>60); Globulin 2.2 g/dL (2-4); Potassium 4.4 mmol/L (3.5-5.0); Total Bilirubin 0.5 mg/dL (0.2-1.0); Total Protein 6.1 g/dL (6.4-8.9)
[2019-02-17 15:00] LABS: Troponin I 0.01 ng/mL (<0.04)
[2019-02-17 15:02] LABS: CKMB ng/mL 2.7 ng/mL (0.6-6.3)
[2019-02-17 19:28] LABS: Urine Appearance Clear; Urine Bilirubin Negative (Negative); Urine Blood Negative (Negative); Urine Color Yellow; Urine Glucose Negative (Negative); Urine Ketones Negative (Negative); Urine Nitrite Negative (Negative); Urine Protein Negative (Negative); Urine Specific Gravity 1.018 (1.010-1.030); Urine Urobilinogen Negative (Negative)
[2019-02-17] MEDS: Iodixanol* (CONTRAST) 320 MG/ML 100 ML SDV IV ONE (19:29)
[2019-02-17 22:18] VITALS: BP 134/99
== END 2019-02-17 22:18 | disposition home or self-care (01) ==
LOC: ED 13:12
DX: R06.00 Dyspnea, unspecified (principal); Z95.0 Presence of cardiac pacemaker; Z95.5 Presence of coronary angioplasty implant and graft; Z96.652 Presence of left artificial knee joint; Z87.891 Personal history of nicotine dependence; I25.10 Atherosclerotic heart disease of native coronary artery without angina pectoris; E78.00 Pure hypercholesterolemia, unspecified; I10 Essential (primary) hypertension; I25.2 Old myocardial infarction; J44.9 Chronic obstructive pulmonary disease, unspecified; K21.9 Gastro-esophageal reflux disease without esophagitis; N40.0 Benign prostatic hyperplasia without lower urinary tract symptoms; Z85.828 Personal history of other malignant neoplasm of skin; Z79.01 Long term (current) use of anticoagulants; Z79.82 Long term (current) use of aspirin; Z79.899 Other long term (current) drug therapy; Z88.5 Allergy status to narcotic agent; Z88.2 Allergy status to sulfonamides
CPT/HCPCS: 36415; 71046; 71275; 80053; 81003; 82550; 82553; 83605; 83880; 84484; 85025; 85610; 85730; 86140; 93005; 99284; Q9967

== ENCOUNTER 2019-06-30 07:13 | Day surgery (SDC) | payer MEDICARE ==
[~2019-06-30 07:13] MED LIST changes: -Bupivacaine 0.25% SDV PF* 10 ML VIAL INJ ONE; +Dexamethasone IV* 4 MG/ML 1 ML (4 MG) IV SLOW PU ONE; -Dexamethasone IV* 4 MG/ML 1 ML (4 MG) ONE; -DiMENhydriNATE IV* 50 MG/ML VIAL IV PUSH PRN; -Famotidine IV* 10 MG/ML 2 ML (20 mg) ONE; -Levalbuterol 0.63MG/3ML NEB* UNIT OF USE INH PRN; -Lidocaine 2% PF * 5 ML VIAL ONE; -Midazolam* 1 MG/ML 5 ML VIAL (5 MG) ONE; -Naloxone* 0.4 MG/ML 1 ML VIAL IV PRN; -Ondansetron INJ* 2 MG/ML VIAL ONE; -Propofol* 10 MG/ML 20 ML BTL ONE; -ceFAZolin 2 GM PREMIX in ORs 2 GM/50 ML BAG ONE; -fentaNYL* 50 MCG/ML 2 ML VIAL (100 MCG VIAL) IV PRN; -fentaNYL* 50 MCG/ML 2 ML VIAL (100 MCG VIAL) ONE
[2019-06-30] MEDS ORDERED: ceFAZolin 2 GM in NS PREMIX(*) 2 GM/100 ML BAG IVPB ONE (07:41)
[2019-06-30] MEDS ORDERED: Buffered Lidocaine 1% SYRIN* 1 ML/SYRINGE INTRADERM ONE (07:41)
[2019-06-30] MEDS ORDERED: Dexamethasone IV* 4 MG/ML 1 ML (4 MG) ONE (07:41)
[2019-06-30] MEDS ORDERED: Famotidine IV* 10 MG/ML 2 ML (20 mg) ONE (07:41)
[2019-06-30] MEDS ORDERED: Propofol* 10 MG/ML 20 ML BTL ONE (08:41)
[2019-06-30] MEDS ORDERED: Midazolam* 1 MG/ML 2 ML VIAL (2 MG) ONE (08:41)
[2019-06-30] MEDS ORDERED: fentaNYL* 50 MCG/ML 2 ML VIAL (100 MCG VIAL) ONE (08:41)
[2019-06-30] MEDS ORDERED: Lidocaine 2% PF * 5 ML VIAL ONE (08:41)
[2019-06-30] MEDS ORDERED: Artificial Tear OPHTH.OINT* 3.5 GM ONE ×2 (09:02→12:02)
[2019-06-30] MEDS ORDERED: Methylene Blue 0.5 %* 50 MG/10 ML AMP IV ONE (09:02)
[2019-06-30] MEDS ORDERED: Lidocaine 1% w EPI 1:100,000* MDV 20 ML VIAL ONE (09:02)
[2019-06-30] MEDS ORDERED: Tetracaine 0.5% OPTH.SOL 4 ML* 1 DROP BTL ONE (09:02)
[2019-06-30] MEDS ORDERED: BSS OPTH.SOL* BTL ONE (09:02)
[2019-06-30] MEDS ORDERED: Bupivacaine 0.25% SDV PF* 10 ML VIAL INJ ONE (09:03)
[2019-06-30] MEDS ORDERED: Mineral Oil Sterile, TOPICAL* 25 ML BTL ONE (09:03)
[2019-06-30] MEDS ORDERED: Bupivacaine 0.5% W/EPI SDV* 10 ML VIAL INJ ONE (09:55)
[2019-06-30] MEDS ORDERED: fentaNYL* 50 MCG/ML 2 ML VIAL (100 MCG VIAL) IV PRN (09:58)
[2019-06-30] MEDS ORDERED: HYDROcodone/ACETAMIN 5-325 MG* 1 TAB PO PRN (09:58)
[2019-06-30] MEDS ORDERED: Acetaminophen TAB* 325 MG PO PRN (09:58)
[2019-06-30] MEDS ORDERED: oxyCODONE TAB* 5 MG TAB PO PRN (09:58)
[2019-06-30] MEDS ORDERED: Naloxone* 0.4 MG/ML 1 ML VIAL IV PRN (09:58)
[2019-06-30] MEDS ORDERED: Ondansetron INJ* 2 MG/ML VIAL IV PRN (09:58)
[2019-06-30 12:47] VITALS: BP 113/65
== END 2019-06-30 12:46 | disposition home or self-care (01) ==
LOC: OR 07:13
PROVIDERS: ATTEND Plastic Surgery
DX: C44.319 Basal cell carcinoma of skin of other parts of face (principal); C44.1122 Basal cell carcinoma of skin of right lower eyelid, including canthus; I25.10 Atherosclerotic heart disease of native coronary artery without angina pectoris; Z95.5 Presence of coronary angioplasty implant and graft; I48.0 Paroxysmal atrial fibrillation; I10 Essential (primary) hypertension; J44.9 Chronic obstructive pulmonary disease, unspecified; Z79.01 Long term (current) use of anticoagulants; G47.33 Obstructive sleep apnea (adult) (pediatric); Z85.828 Personal history of other malignant neoplasm of skin; M19.90 Unspecified osteoarthritis, unspecified site; Z86.73 Personal history of transient ischemic attack (TIA), and cerebral infarction without residual deficits; Z87.891 Personal history of nicotine dependence
CPT/HCPCS: 88305; 88331; 88332; A9270-GY; J0690; J1100; J2250; J2704; J3010; J3490

== ENCOUNTER 2019-07-26 16:23 | Emergency (ER) | payer MEDICARE ==
--- OUTSIDE RECORDS SUMMARY | 2019-07-26 16:39 | XMS REPORT | Summary of Care ---
:1935 Author Organization [facility] Address [address] [facility] [place] [address] Care Team Providers Name Role Phone Brandi Quispe Primary Care Provider Reason for Visit Reason Comments Follow Up 1 week follow up on hypotension Medication Check Encounter Details Date Type Department Care Team Description 07/16/2019 Office Visit [facility] Brandi Quispe MD Hypotension, unspecified hypotension type (Primary Dx); Medicine [address] Chronic obstructive pulmonary disease, unspecified COPD type (HCC); [address] [place] [place] [address] Polyp of colon, unspecified part of [place], [place] [address] [phone] Allergies Active Allergy Reactions Severity Noted Date Comments Kdc:Ci Pigment Blue Respiratory Reaction 07/08/2019 Shortness of breath 63+Pantoprazole Sulfa Antibiotics 05/01/2004 "STOMACH CRAMPS" Tape: Silk Or Adhesive Rash 02/02/2016 Tramadol MICROGRAPHICS 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 Diclofenac Sodium 1 % Place 4 g onto 1 Tube 3 09/19/2016 Active Transdermal Gel skin FOUR TIMES DAILY NEEDED (low back pain). gabapentin (NEURONTIN) Take 1 Cap by 270 Cap 1 09/19/2018 Active 100 MG Oral mouth THREE CapIndications: Lumbar TIMES DAILY. pain finasteride (PROSCAR) 5 Take 1 Tab by 90 Tab 3 10/14/2018 Active MG Oral TabIndications: mouth DAILY. Benign prostatic hyperplasia, unspecified whether lower urinary tract symptoms present simvastatin (ZOCOR) 40 MG Take 1 Tab by 90 Tab 3 10/23/2018 Active Oral TabIndications: mouth EVERY Essential hypertension BEDTIME. apixaban (ELIQUIS) 5 MG Take 1 Tab by 180 Tab 3 01/07/2019 Active Oral TabIndications: PAF mouth TWICE (paroxysmal atrial DAILY. fibrillation) (HCC) fluticasone (FLONASE) 50 [place] 2 Sprays 1 Bottle 1 03/30/2019 Active MCG/ACT Nasal in nose DAILY. SuspensionIndications: Rhinitis, unspecified type Tamsulosin HCl (FLOMAX) Take 1 Cap by 90 Cap 3 04/02/2019 Active 0.4 MG Oral Cap mouth DAILY. furosemide (LASIX) 20 MG Take 1 Tab by 90 Tab 3 07/08/2019 Active Oral TabIndications: SOB mouth DAILY (shortness of breath) NEEDED (swelling in feet). fludrocortisone Take 0.5 Tabs 20 Tab 0 07/08/2019 Active (FLORINEF) 0.1 MG Oral by mouth DAILY. Tab documented as of this encounter (statuses as of 07/16/2019) Active Problems Problem Noted Date TIA (transient ischemic attack) 03/07/2018 Overview: Work up - Echo / ultrasound / water purification chemist - Dr Crockett Chronic obstructive pulmonary disease [...] 2001. Coronary stent 06/13/1996 Personal history of PR (myocardial infarction) 08/12/1995 Cardiac pacemaker in situ documented as of this encounter (statuses as of 07/16/2019) Resolved Problems Problem Noted Date Resolved Date Other specified pre-operative examination 02/07/2011 10/06/2013 documented as of this encounter (statuses as of 07/16/2019) Immunizations Name Administration Dates Next Due Influenza (IM) Preservative Free 04/08/2012, 02/21/2010 Influenza Vaccine High Dose 06/23/2015, 03/16/2014 Influenza Vaccine Whole 04/07/2007 PNEUMOCOCCAL POLYSACCHARIDE VACCINE 09/19/2016 Pneumococcal Conjugate(13 Valent) 04/27/2014 TDAP Vaccine 07/08/2019 documented as of this encounter Social History Tobacco Use Types Packs/Day Years Used Date Former Smoker Cigarettes Quit: 05/13/1963 Smokeless Tobacco: Former User Comments: 1962 Alcohol Use Drinks/Week oz/Week Comments Yes 1 Glasses of wine 1.0 rare Sex Assigned at Date Recorded Not on file documented as of this encounter Last Filed Vital Signs Vital Sign Reading Time Taken Comments Blood Pressure 128/80 07/16/2019 3:01 PM EST Pulse 90 07/16/2019 3:01 PM EST Temperature 36.9 07/16/2019 3:01 PM C (98.4 EST F) Respiratory Rate - - Oxygen Saturation 94% 07/16/2019 3:01 PM EST Inhaled Oxygen Concentration - - Weight 111.9 kg (246 lb 12.8 oz) 07/16/2019 3:01 PM EST Height 182.9 cm (6') 07/16/2019 3:01 PM EST Body Mass Index 33.47 07/16/2019 3:01 PM EST documented in this encounter Patient Instructions Patient InstructionsCreBrandi mayorga MD - 07/16/2019 2:40 PM ESTEtiology of hypotension not clear- Was told that heart evualuation was ok - 2. For the plugged nose - use VIcks documented in this encounter Progress Notes Brandi Quispe MD - 07/16/2019 2:40 PM EST NAME:Feliciano Bradshaw [birth year] ENC Date: 07/16/2019 CC: Chief Complaint Patient presents with ? Follow Up 1 week follow up on hypotension ? Medication Check Feliciano Bradshaw is a 84-y.o. male - was seen in ER for hypotention -diuriretics/ metoprolol stopped - Noted to have very low blood pressure at last office visit as well as pulmonary office- Started on small dose floinef last visit Has not seen water purification chemist since floinef started but is feeling ok - 20 complaining of Plugged nose- Using flonase- 3. Called for colonoscopy - Had adenomatous polyp in the past- 'last colon reviewed - had not findings except diverticula - Discussed having repeat colon - since patient frail and on blood pressure support medication risk outweighs benefit - Current Outpatient Medications Medication Sig ? apixaban (ELIQUIS) 5 MG Oral Tab Take 1 Tab by mouth TWICE DAILY. ? aspirin (ECOTRIN) 81 MG Oral Tab EC Take 81 mg by mouth DAILY. ? Diclofenac Sodium 1 % Transdermal Gel Place 4 g onto skin FOUR TIMES DAILY NEEDED (low back pain). ? finasteride (PROSCAR) 5 MG Oral Tab Take 1 Tab by mouth DAILY. ? fludrocortisone (FLORINEF) 0.1 MG Oral Tab Take 0.5 Tabs by mouth DAILY. ? fluticasone (FLONASE) 50 MCG/ACT Nasal Suspension [place] 2 Sprays in nose DAILY. ? furosemide (LASIX) 20 MG Oral Tab Take 1 Tab by mouth DAILY NEEDED ( swelling in feet). ? gabapentin (NEURONTIN) 100 MG Oral Cap Take 1 Cap by mouth THREE TIMES DAILY. ? simvastatin (ZOCOR) 40 MG Oral Tab Take 1 Tab by mouth EVERY BEDTIME. ? Tamsulosin HCl (FLOMAX) 0.4 MG Oral Cap Take 1 Cap by mouth DAILY. No current facility-administered medications for this visit. Patient Active Problem List Diagnosis Date Noted ? Cardiac pacemaker in situ Priority: High ? CAD (coronary artery disease) 10/07/2007 Priority: High S/P catheterization, Dr. Meneses, 11/2006. Has 96% circumflex blockage that cannot be addressed surgically. ? Coronary stent 06/13/1996 Priority: High ? BMI 31.0-31.9,adult 11/21/2010 Priority: Low ? TIA (transient ischemic attack) 03/07/2018 Work up - Echo / ultrasound / water purification chemist - Dr Crockett ? Chronic obstructive pulmonary disease (HCC) 11/26/2017 ? History of lumbar laminectomy 11/26/2017 ? Spinal stenosis, lumbar region, with neurogenic claudication 12/18/2016 ? Delayed wound healing 11/08/2015 ? Delayed surgical wound healing 09/12/2015 ? Seroma 09/09/2014 ? Osteoarthrosis, unspecified whether generalized or localized, lower leg 02/07/2011 ? Lipid disorder 10/13/2007 ? Spinal stenosis 10/07/2007 ? BPH (benign prostatic hypertrophy) 10/07/2007 ? Hypertension 10/07/2007 ? Pacemaker 10/07/2007 Placed in 2001. ? Personal history of PR (myocardial infarction) 08/12/1995 Family History Problem Relation Age of Onset ? Seizures Mother Parkinson's ? Arthritis Mother ? Heart Mother ? Heart Disease Mother ? Heart Father ? Skin Cancer Father ? Heart Disease Father ? Arthritis Father ? Hypertension Father ? Cancer Father ? Stroke Father ? Clotting Disorder Father ? Arthritis Sister ? Arthritis Brother ? Arthritis Maternal Grandfather ? Anesth Problems No family history ? Diabetes No family history ? Kidney Disease No family history ? Thyroid Disease No family history No cardiopulmonary symptoms No upper or lower GI complaints No urinary tract symptoms. No bruising/ bleeding. No neurological complaints . No insomnia.+ . Social History Tobacco Use ? Smoking status: Former Smoker Types: Cigarettes Last attempt to quit: 05/13/1963 Years since quittin.2 ? Smokeless tobacco: Former User ? Tobacco comment: 1963 Substance Use Topics ? Alcohol use: Yes Alcohol/week: 1.0 standard drinks Types: 1 Glasses of wine per week Comment: rare ? Drug use: No Types: Prescription OBJECTIVE: BP 128/80 | Pulse 90 | Temp 98.4 F (36.9 C) | Ht 6' (1.829 m) | Wt 246 lb 12.8 oz (111.9kg) | SpO2 94% | BMI 33.47 kg/m . Heent neg Nose - Not plugged Lungs Clear CV rrr Abd soft, nontender, no organomegaly Ext no edema; no lesions; pulses intact Neuro: intellect intact ; motor including gait unremarkable A/P ICD-9-CM ICD-10-CM 1. Hypotension, unspecified hypotension type 458.9 I95.9 2. Chronic obstructive pulmonary disease, unspecified COPD type (HCC) 496 J44.9 3. Polyp of colon, unspecified part of colon, unspecified type 211.3 K63.5 Patient Instructions Etiology of hypotension not clear- Was told that heart evualuation was ok - 2. For the plugged nose - use VIcks AUTHOR: Brandi Quispe MD 15:53 07/16/2019 documented in this encounter Plan of Treatment Health Maintenance Due Date Last Done Comments Colonoscopy 04/20/2019 04/20/2014, 04/17/2011, 04/02/2006, Additional history exists INFLUENZA VACCINE (#1) 2020 06/23/2015, 03/16/2014, Postponed from 04/08/2012, Additional 01/11/2019 (Other) history exists DEPRESSION SCREENING 01/08/2020 01/07/2019 FALL RISK ASSESSMENT 01/08/2020 01/07/2019, 01/07/2019 HIV SCREENING 07/08/2020 Postponed from 1951 (Patient refused) MEDICARE ANNUAL WELLNESS 07/08/2020 04/08/2012 Postponed from VISIT 04/08/2013 (Other) ZOSTER IMMUNIZATION SERIES 07/08/2020 Postponed from (1 of 2) 1986 (Patient refused) DTaP/Tdap/Td Vaccines (2 - 07/08/2029 07/08/2019 Tdap) PNEUMOCOCCAL 65+YRS Completed 09/19/2016, 04/27/2014 HEPATITIS A IMMUNIZATION Aged Out No longer eligible SERIES based on patient's age to complete this topic HPV IMMUNIZATION SERIES Aged Out No longer eligible based on patient's age to complete this topic MENINGOCOCCAL VACCINE IMM Aged Out No longer eligible based on patient's age to complete this topic documented as of this encounter Goals Goal Patient Goal Associated Recent Patient-Stated? Author Type Problems Progress Blood Pressure Blood Pressure 128/80 No Jose Enrique, < 150/90 (07/16/2019 MD Brandi 3:01 PM EST) Note: This is an individualized treatment (blood pressure) goal for Feliciano Bradshaw: Displayed above (on the left) is your goal for blood pressure control. Your most recent blood pressure is also shown above, on the right. You should try to achieve blood pressures that are lower than your goal listed above (on the left). Weight loss vs. 18 mo Lifestyle 0.2 (07/16/2019 3:01 PM EST) No Brandi Quispe MD max (lbs) >= 10 Note: This is an individualized lifestyle goal for Feliciano Bradshaw: Your body mass index (BMI) is more than 30. You should lose weight. A reasonable starting goal is to lose 10 pounds. Displayed above is how many pounds you have lost thus far towards your 10 pound weight loss goal. Keep immunizations current Lifestyle Brandi Chaidez MD Note: This is an individualized lifestyle goal for Feliciano Bradshaw: Please be sure to keep up-to-date on recommended immunizations. For example, this would include a yearly influenza vaccine. Immunization status can be seen by looking at the Health Maintenance sections of your e[facility], Plan of Care, and any After Visit Summaries. Take all prescribed medications as directed Self-management Brandi Chaidez MD Note: This is an individualized self-management [...] of this encounter Implants Implanted Type Area Lubrication Servicer Device Shelf Model / Identifier Expiration Serial / Lot Date Bone Cement, Double 80gm - [id number] Left: [id number] / Implanted: Qty: 1 on 02/06/2011 at [facility] / [id number] Lps-Flex Taper Plugs - [id number] Left: ELISABETMARÍA ELENA RIVERA / Implanted: Qty: 1 on 02/06/2011 at [facility] [employer] / [id number] Lps-Flex Option Femoral F Left - [id number] Left: ELISABET RIVERA [id number] [id number] / Implanted: Qty: 1 on 02/06/2011 at [facility] [employer] / [id number] Tibial Plate Size 6 Nexgen - [id number] Left: ELISABET RIVERA [id number] / Implanted: Qty: 1 on 02/06/2011 at [facility] [employer] / [id number] Art Surface 10mm Green - [id number] Left: ELISABET RIVERA / Implanted: Qty: 1 on 02/06/2011 at [facility] [employer] / [id number] documented as of this encounter Results Not on filedocumented in this encounter Visit Diagnoses Diagnosis Hypotension, unspecified hypotension type Chronic obstructive pulmonary disease, unspecified COPD type (HCC) Polyp of colon, unspecified part of colon, unspecified type documented in this encounter Insurance Payer Benefit Plan / Subscriber ID Effective Dates Phone Address Type Group MEDICARE MEDICARE PART A [id number] 2001-Present Medicare & B [facility] [id number] 2016-Present [facility] OPTIONS documented as of this encounter
--- OUTSIDE RECORDS SUMMARY | 2019-07-26 16:39 | XMS REPORT | Continuity of Care Document ---
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 Onset: 12/01/2015 Cardiac pacemaker in situ Lex Meneses M.D. Onset: 12/01/2015 History of cerebrovascular accident without Vamshi Crockett M.D. Onset: residual deficits Paroxysmal atrial fibrillation Vamshi Crockett M.D. Onset: 02/24/2018 Chronic fatigue syndrome Vamshi Crockett M.D. Onset: 02/24/2018 Atherosclerotic heart disease of [place] Vamshi Crockett M.D. Onset: 2018 coronary artery without angina pectoris Social History Type Date Description Comments Sex Unknown Tobacco Use Start: Unknown End: Former Cigarette Smoker Unknown Smoking Status Reviewed: 06/24/19 Former Cigarette Smoker ETOH Use Denies alcohol use Tobacco Use Start: Unknown End: Patient is a former 4-5 years smoker Recreational Drug Use Denies Drug Use Exercise Type/Frequency Does not exercise Limited by back pain Allergies, Adverse Reactions, Alerts Active Allergies Reaction Severity Comments Date Sulfa Antibiotics 11/19/2013 Tramadol vivid dreams Moderate 10/16/2017 Tape Urticaria Moderate 10/16/2017 Inactive Allergies NSAIDs 11/19/2013 Donavon Inhibitors 11/19/2013 Medications Active Medications SIG Qnty Indications Ordering Date Provider Eliquis take 1 by mouth 180tabs I48.0 Tamie Landry, 03/28/2018 5mg Tablets twice a day N.P. Flomax 1 by mouth every Unknown 08/11/2014 0.4mg Capsules day Simvastatin 1 by mouth every 90tabs Unknown 40mg Tablets night at bedtime Proscar 1 by mouth every 90tabs Unknown 5mg Tablets day Aspirin 1 by mouth every Unknown 81mg Tablets day Zyrtec Allergy 1 by mouth every Unknown 10mg day prn Tablets Gabapentin take 1 capsule Unknown 100mg Capsules by mouth one times a day Flonase Allergy Relief spray 1 spray in Unknown each nostril 50mcg/Act Suspension twice daily as needed Magnesium Oxide 1 by mouth every Unknown 400mg day Tablets Acetaminophen 2 every 4 hours Unknown 325mg as needed for Tablets pain Pantoprazole Sodium 1 by mouth every Unknown 40mg day Solution Rec Metoprolol Succinate 1/2 tablet by Unknown ER mouth once daily 25mg Tablets ER 24HR as needed Furosemide 1/2 tablet by Unknown 20mg Tablets mouth daily if needed for Swelling In Feet Medications Administered in Office Medication SIG Qnty Indications Ordering Provider Date Inj, Regadenoson, 0.1 MG Lex Meneses M.D. 03/13/2019 Injection Technetium TC 99M TetrofosminLex M.D. 03/13/2019 Per Unit Dose Up To 40 Millicuries Injection Technetium TC 99M TetrofosminLex M.D. 03/13/2019 Per Unit Dose Up To 40 Millicuries Injection Immunizations CPT Code Status Date Vaccine Lot # [id number] Given 08/12/2014 Fluvirin Im 3Yrs And Older Vital Signs Date Vital Result Comment 06/24/2019 12:39pm Height 69 inches 5'9" Weight 250.00 lb Heart Rate 90 /min BP Systolic Sitting 128 mmHg Lue large cuff BP Diastolic Sitting 82 mmHg Lue large cuff Respiratory Rate 14 /min O2 % BldC Oximetry 94 % BMI (Body Mass Index) 36.9 kg/m2 04/27/2019 10:19am Height 69 inches 5'9" Weight 241.38 lb Heart Rate 88 /min BP Systolic Sitting 124 mmHg Lue large cuff BP Diastolic Sitting 86 mmHg Lue large cuff O2 % BldC Oximetry 91 % On Ra BMI (Body Mass Index) 35.6 kg/m2 Results Description No Information Available Procedures Date Code Description Status 06/15/2019 72875 Diffusing Capacity Completed 06/15/2019 07261 Plethysmography Determination Lung Volumes & Per Airway Completed Resist 06/15/2019 56334 Pulmonary Function><Bronchodil Completed 05/03/2019 52052 Sleep Study Unattended,HRT Rate,Oxygen Sat,Resp Completed Effort/Airflow 05/03/2019 45186 Pulmonary Stress Testing, Inc Measurement Heart Rate, Completed Oximetry 05/01/2019 24189 Pulmonary Stress [facility] Measurement Heart Rate, Completed Oximetry 04/27/2019 06730 Pulmonary Stress [facility] Measurement Heart Rate, Completed Oximetry 04/17/2019 49562 Pace Maker Eval W/Iterative Adjment Dual Lead Completed 04/17/2019 55652 Pace Maker Eval W/Iterative Adjment Dual Lead Completed 03/13/2019 54586 Stress Test Completed 03/13/2019 24287 Myocardial Perfusion Imaging Tomographic (Spect) Multiple Completed Studies 03/04/2019 94696 EKG Tracing & Interpretation Completed Medical Devices Description No Information Available Encounters Type Date Location Provider Dx Diagnosis Office Visit 04/27/2019 [facility] And Augie Orellana MD R06.00 Dyspnea, 10:45a [facility] unspecified Ballistician G47.30 Sleep apnea, unspecified Office Visit 04/17/2019 1:30p [facility] Lex Chand I48.0 Paroxysmal atrial Of Johnson Meneses M.D. fibrillation Z95.0 Presence of cardiac pacemaker R00.1 Bradycardia, unspecified I25.10 Athscl heart disease of [place] coronary artery w/o ang pctrs Office Visit 03/04/2019 3:30p [facility] Lex Chand I48.0 Paroxysmal atrial Of Johnson Meneses M.D. fibrillation I25.10 Athscl heart disease of [place] coronary artery w/o ang pctrs Z95.0 Presence of cardiac pacemaker R06.02 Shortness of breath I42.9 Cardiomyopathy, unspecified R53.83 Other fatigue Assessments Date Code Description Provider 06/24/2019 G47.33 Obstructive sleep apnea (adult) (pediatric) Azalea Kiran, АНДРЕЙ 06/24/2019 R53.83 Other fatigue Azalea Kiran NP 06/15/2019 R06.00 Dyspnea, unspecified Yola Diaz MD 05/03/2019 G47.33 Obstructive sleep apnea (adult) (pediatric) Augie Orellana MD 05/03/2019 G47.33 Obstructive sleep apnea (adult) (pediatric) Yola Diza MD 05/01/2019 R06.00 Dyspnea, unspecified Augie Orellana MD 04/27/2019 R06.00 Dyspnea, unspecified Augie Orellana MD 04/27/2019 G47.30 Sleep apnea, unspecified Augie Orellana MD 04/17/2019 I48.0 Paroxysmal atrial fibrillation Lex Meneses M.D. 04/17/2019 I48.0 Paroxysmal atrial fibrillation Ica Pacer Schedule 04/17/2019 Z95.0 Presence of cardiac pacemaker Lex Meneses M.D. 04/17/2019 Z95.0 Presence of cardiac pacemaker Lex Meneses M.D. 04/17/2019 Z95.0 Presence of cardiac pacemaker Ica Pacer Schedule 04/17/2019 R00.1 Bradycardia, unspecified Lex Meneses M.D. 04/17/2019 R00.1 Bradycardia, unspecified Ica Pacer Schedule 04/17/2019 I25.10 Atherosclerotic heart disease of [place] Lex Meneses M.D. coronary artery with 03/13/2019 I48.0 Paroxysmal atrial fibrillation Lex Meneses M.D. 03/04/2019 I48.0 Paroxysmal atrial fibrillation Lex Meneses M.D. 03/04/2019 I25.10 Atherosclerotic heart disease of [place] Lex Meneses M.D. coronary artery with 03/04/2019 Z95.0 Presence of cardiac pacemaker Lex Meneses M.D. 03/04/2019 R06.02 Dyspnea on exertion Lex Meneses M.D. 03/04/2019 I42.9 Cardiomyopathy, unspecified Lex Meneses M.D. 03/04/2019 R53.83 Other fatigue Lex Meneses M.D. Plan of Treatment Future Appointment(s):08/25/2019 11:30 am - Azalea Kiran NP at [facility]07/07/2019 3:30 pm - Augie Orellana MD at [facility]06/24/2019 - Azalea Kiran NPG47.33 Obstructive sleep apnea (adult) (pediatric)Follow up:2 monthsRecommendations: Try getting a softer pillow like we discussed. If you have difficulty with your equipment, or need to replace your mask or hoses, please contact your homecare agency, [facility] . If you have any further questions, please call the [facility] at [phone] If you have any sleepiness while driving you MUST avoid operating a vehicle or machinery. If you feel tired while driving machine puller and take a nap or switch drivers. If you know you are sleepy and need to go somewhere, arrange for a ride or use public transportation. It is very important to not risk your safetyor the safety of others.R53.83 Other fatigue Functional Status Description No Information Available Mental Status Description No Information Available Referrals Refer to Reason for Referral Status Appt Date Yola Diaz MD Sent [address] [place] [address] [phone]
--- OUTSIDE RECORDS SUMMARY | 2019-07-26 16:39 | XMS REPORT | Continuity of Care Document ---
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 HST Social History Type Date Description Comments Sex Unknown Tobacco Use Start: Unknown End: Former Cigarette Smoker Unknown Smoking Status Reviewed: 07/07/19 Former Cigarette Smoker ETOH Use Denies alcohol [...] Unknown 325mg as needed for Tablets pain Medications Administered in Office Medication SIG Qnty Indications Ordering Provider Date Inj, Regadenoson, 0.1 MG Lex Meneses M.D. 03/13/2019 Injection Technetium TC 99M Tetrofosmin, Lex Meneses M.D. 03/13/2019 Per Unit Dose Up To 40 Millicuries Injection Technetium TC 99M TetrofosminLex M.D. 03/13/2019 Per Unit Dose Up To 40 Millicuries Injection Immunizations CPT Code Status Date Vaccine Lot # [id number] Given 08/12/2014 Fluvirin Im 3Yrs And Older Vital Signs Date Vital Result Comment 07/07/2019 3:10pm Height 69 inches 5'9" Weight 239.25 lb Heart Rate 72 /min BP Systolic 106 mmHg Rue large cuff re-check BP Diastolic 72 mmHg Rue large cuff re-check BP Systolic Sitting 80 mmHg Rue large cuff BP Diastolic Sitting 60 mmHg Rue large cuff O2 % BldC Oximetry 94 % On Ra BMI (Body Mass Index) 35.3 kg/m2 06/24/2019 12:39pm Height 69 inches 5'9" Weight 250.00 lb Heart Rate 90 /min BP Systolic Sitting 128 mmHg Lue large cuff BP Diastolic Sitting 82 mmHg Lue large cuff Respiratory Rate 14 /min O2 % BldC Oximetry 94 % BMI (Body Mass Index) 36.9 kg/m2 Results Test Acquired Date Facility Test Result H/L Range Note Surgical 06/30/2019 [facility] Surgical SEE RESULT [address] Pathology BELOW [place], [place] [id number] [phone] PDFReport SEE IMAGE 1 SEE RESULT BELOW Name: VERO BRADSHAW : [address]: Ric Barraza MD Acct: [id number] Unit: [id number] AGE: 84 Location: OR Re06/30/19 SEX: M Status: ANTHONY TOTH SPEC: [id number] IAM: 06/30/19- SUBM DR: Ric Barraza MD REQ: [id number] RECD: 06/30/19-1001 STATUS: YASMINE VELASCO DR: Lex Quispe MD _ ORDERED: FS 1ST PER SPEC/2, FS ADD PER SPEC/4, LEVEL 4/2 FINAL DIAGNOSIS 1. Skin, right lower eyelid, excision: -- Scar and residual basal cell carcinoma, superficial and nodular type. -- All margins are clear. 2. Skin, right cheek, excision: -- Scar and residual basal cell carcinoma, superficial and nodular type. -- All margins are clear. COMMENT: The previous lesions at these sites ([id number] #1 and #4) have been completely excised. PATHOLOGY SURGICAL CONSULT Frozen section (FS)/Touch Prep (TP)/Gross Consult (GC) FS 1) Skin, right lower eyelid, excision: a. Residual basal cell carcinoma. (EP) b. All margins are clear. (EP) Findings discussed with Dr. Barraza on 06/30/2019 at 1024. FS 2) Skin, right cheek, excision: CONTINUED ON NEXT PAGE DEPARTMENT OF PATHOLOGY, [address] [place] [address] Maco oRdriguez M.D. Director [facility] # [id number] a. Basal cell carcinoma. (EP) b. All margins are clear. (EP) Findings discussed with Dr. Barraza on 06/30/2019 at 1044. PRE-OPERATIVE DIAGNOSIS Basal cell carcinoma right cheek and right lower eyelid, 1-2) suture mota 12 :00 superior margin GROSS DESCRIPTION 1. The specimen is received fresh labeled, Excision Basal Cell Carcinoma Right Lower Eyelid, Suture Mota 12:00 Superior Margin, and consists of a 1.1 x 1.1 cm colvin-pink ovoid wrinkled skin fragment excised to a depth of 0.3 cm. There is an attached suture which designates the 12:00 superior margin. The specimen is inked as follows: 9: 00 half black, 3:00 half blue and 12:00 end green, serially sectioned from 12:00 to 6:00 and entirely submitted for frozen section microscopy. The frozen section residue is submitted in cassettes FSA and FSB to include ends in cassette FSA. 2. The specimen is received fresh labeled, Excision Basal Cell Carcinoma Right Cheek, Suture Mota 12:00 Superior Margin, and consists of a 2.9 x 2.5 cm colvin-pink ovoid hairbearing wrinkled focally scabrous to keratotic skin fragment excised to a maximum depth of 0.8 cm. There is a suture attached to one short axis which designates the 12:00 superior margin. The specimen is inked as follows: 12:00 half black, 6:00 half blue and 3:00 end green, serially sectioned from 3:00 to 9:00 and entirely submitted for frozen section microscopy. The frozen section residue is submitted in cassettes FSA through FSD to include ends in cassette FSA. Signed by and Reported on: Jasmine Abbasi MD 07/01/19 1117 END OF REPORT DEPARTMENT OF PATHOLOGY, [address] [place] [address] Maco Rodriguez M.D. Director [facility] # [id number] Procedures Date Code Description Status 06/15/2019 43855 Diffusing Capacity Completed 06/15/2019 17484 Plethysmography Determination Lung Volumes & Per Airway Completed Resist 06/15/2019 07982 Pulmonary Function><Bronchodil Completed 05/03/2019 57560 Sleep Study Unattended,HRT Rate,Oxygen Sat,Resp Completed Effort/Airflow 05/03/2019 62606 Pulmonary Stress Testing, Inc Measurement Heart Rate, Completed Oximetry 05/01/2019 38903 Pulmonary Stress Testing, Inc Measurement Heart Rate, Completed Oximetry 04/27/2019 07928 Pulmonary Stress Testing, Inc Measurement Heart Rate, Completed Oximetry 04/17/2019 19235 Pace Maker Eval W/Iterative Adjment Dual Lead Completed 04/17/2019 81716 Pace Maker Eval W/Iterative Adjment Dual Lead Completed 03/13/2019 08965 Stress Test Completed 03/13/2019 45440 Myocardial Perfusion Imaging Tomographic (Spect) Multiple Completed Studies 03/04/2019 99530 EKG Tracing & Interpretation Completed Medical Devices Description No Information Available Encounters Type Date Location Provider Dx Diagnosis Office Visit 06/24/2019 Pulmonology And Azalea G47.33 Obstructive sleep 1:00p [facility] Kiran apnea (adult) 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 fibrillation Z95.0 Presence of cardiac pacemaker R00.1 Bradycardia, unspecified I25.10 Athscl heart disease of [place] coronary artery w/o ang pctrs Office Visit 03/04/2019 3:30p [facility] Lex Chand I48.0 Paroxysmal atrial Of [place] Meneses M.D. fibrillation I25.10 Athscl heart disease of [place] coronary artery w/o ang pctrs Z95.0 Presence of cardiac pacemaker R06.02 Shortness of breath I42.9 Cardiomyopathy, unspecified R53.83 Other fatigue Assessments Date Code Description Provider 07/07/2019 R06.00 Dyspnea, unspecified Augie Orellana MD 07/07/2019 G47.30 Sleep apnea, unspecified Augie Orellana MD 06/24/2019 G47.33 Obstructive sleep apnea (adult) (pediatric) Azalea Kiran NP 06/24/2019 R53.83 Other fatigue Azalea Kiran NP 06/15/2019 R06.00 Dyspnea, unspecified Yola Diaz MD 05/03/2019 G47.33 Obstructive sleep apnea (adult) (pediatric) Augie Orellana MD 05/03/2019 G47.33 Obstructive sleep apnea (adult) (pediatric) Yola Diaz MD 05/01/2019 R06.00 Dyspnea, unspecified Augie Orellana MD 04/27/2019 R06.00 Dyspnea, unspecified Augie Orellana MD 04/27/2019 G47.30 Sleep apnea, lisaified Augie Orellana MD 04/17/2019 I48.0 Paroxysmal atrial [...] Schedule 04/17/2019 I25.10 Atherosclerotic heart disease of [place] Lex Meneses M.D. coronary artery with 03/13/2019 I48.0 Paroxysmal atrial fibrillation Lex Meneses M.D. 03/04/2019 I48.0 Paroxysmal atrial fibrillation Lex Meneses M.D. 03/04/2019 I25.10 Atherosclerotic heart disease of [place] Lex Meneses M.D. coronary artery with 03/04/2019 Z95.0 Presence of cardiac pacemaker Lex Meneses M.D. 03/04/2019 R06.02 Dyspnea on exertion Lex Meneses M.D. 03/04/2019 I42.9 Cardiomyopathy, unspecified Lex Meneses M.D. 03/04/2019 R53.83 Other fatigue Lex Meneses M.D. Plan of Treatment Future Appointment(s):08/25/2019 11:30 am - Azalea Kiran SAP SPECIALIST at [facility]07/07/2019 - Augie Orellana, MDR06.00 Dyspnea , unspecifiedComments:Patient should continue activity and wt loss. He does not seem to benefit from inhalers. He believeshis shortness of breath is related to pantoprazole. I do not have evidence to support that. He can use an H2 nadir instead.G47.30 Sleep apnea, unspecifiedFollow up:as needed. Functional Status Description No Information Available Mental Status Description No Information Available Referrals Refer to Reason for Referral Status Appt Date Yola Diaz MD Sent [address] [place] [phone]
--- OUTSIDE RECORDS SUMMARY | 2019-07-26 16:39 | XMS REPORT | Summary of Care ---
:1935 Author Organization [facility] [address] Address [address] [facility] [place] [address] Care Team Providers Name Role Phone Brandi Quispe Primary Care Provider Reason for Visit Reason Comments Follow Up 6 month follow up Hyperlipidemia HYPOTENSION Breathing Problem SOB for 6 mos Other Imm/Inj Tdap administered today Encounter Details Date Type Department Care Team Description 07/08/2019 Office Visit [place] [facility] Brandi Quispe MD Hypotension, unspecified hypotension type (Primary Dx); Medicine [address] PAF (paroxysmal atrial fibrillation) (HCC); [address] [place] [address] Skin cancer; [place] [address] Heart malformation; [phone] Need for vaccination; (Fax) SOB (shortness of breath); Pedal edema; Gastroesophageal reflux disease without esophagitis Allergies Active Allergy Reactions Severity Noted Date Comments Kdc:Ci Pigment Blue Respiratory Reaction 07/08/2019 Shortness of breath 63+Pantoprazole Sulfa Antibiotics 05/01/2004 "STOMACH CRAMPS" Tape: Silk Or Adhesive Rash 02/02/2016 Tramadol MERCHANDISE EXAMINER Reaction 04/27/2014 Bad dreams and constipaton documented as of this encounter (statuses as of 07/08/2019) Medications Medication Sig Dispensed Refills Start Date End Date Status aspirin (ECOTRIN) 81 Take 81 mg 0 Active MG Oral Tab EC by mouth DAILY. Diclofenac Sodium 1 % Place 4 g 1 Tube 3 09/19/2016 Active Transdermal Gel onto skin FOUR TIMES DAILY NEEDED (low back pain). gabapentin Take 1 Cap 270 Cap 1 09/19/2018 Active (NEURONTIN) 100 MG by mouth Oral CapIndications: THREE TIMES Lumbar pain DAILY. finasteride (PROSCAR) Take 1 Tab 90 Tab 3 10/14/2018 Active 5 MG Oral by mouth TabIndications: DAILY. Benign prostatic hyperplasia, unspecified whether lower urinary tract symptoms present simvastatin (ZOCOR) Take 1 Tab 90 Tab 3 10/23/2018 Active 40 MG Oral by mouth TabIndications: EVERY Essential BEDTIME. hypertension apixaban (ELIQUIS) 5 Take 1 Tab 180 Tab 3 01/07/2019 Active MG Oral by mouth TabIndications: PAF TWICE (paroxysmal atrial DAILY. fibrillation) (HCC) fluticasone (FLONASE) [place] 2 1 Bottle 1 03/30/2019 Active 50 MCG/ACT Nasal Sprays in SuspensionIndications nose DAILY. : Rhinitis, unspecified type Tamsulosin HCl Take 1 Cap 90 Cap 3 04/02/2019 Active (FLOMAX) 0.4 MG Oral by mouth Cap DAILY. furosemide (LASIX) 20 Take 1 Tab 90 Tab 3 07/08/2019 Active MG Oral by mouth TabIndications: SOB DAILY (shortness of breath) NEEDED (swelling in feet). fludrocortisone Take 0.5 20 Tab 0 07/08/2019 Active (FLORINEF) 0.1 MG Tabs by Oral Tab mouth DAILY. furosemide (LASIX) 20 Take 1 Tab 90 Tab 3 10/23/2018 Discontinued MG Oral by mouth 0 (Dose TabIndications: SOB DAILY Adjustment) (shortness of breath) NEEDED (swelling in feet). metoprolol succinate Take 0.5 45 Tab 3 12/10/2018 Discontinued (TOPROL XL) 25 MG Tabs by 0 (Patient stopped Oral TABLET SR 24 mouth the medication) HRIndications: SOB DAILY. (shortness of breath) pantoprazole Take 1 Tab 90 Tab 3 03/24/2019 Discontinued (PROTONIX) 40 MG Oral by mouth 0 (Patient stopped Tab ECIndications: DAILY. the medication) Gastroesophageal reflux disease without esophagitis documented as of this encounter (statuses as of 07/08/2019) Active Problems Problem Noted Date TIA (transient ischemic attack) 03/07/2018 Overview: Work up - Echo / ultrasound / ob/gyn doctor - Dr Crockett Chronic obstructive pulmonary disease [...] 2001. Coronary stent 06/13/1996 Personal history of SD (myocardial infarction) 08/12/1995 Cardiac pacemaker in situ documented as of this encounter (statuses as of 07/08/2019) Resolved Problems Problem Noted Date Resolved Date Other specified pre-operative examination 02/07/2011 10/06/2013 documented as of this encounter (statuses as of 07/08/2019) Immunizations Name Administration Dates Next Due Influenza (IM) Preservative Free 04/08/2012, 02/21/2010 Influenza Vaccine High Dose 06/23/2015, 03/16/2014 Influenza Vaccine Whole 04/07/2007 PNEUMOCOCCAL POLYSACCHARIDE VACCINE 09/19/2016 Pneumococcal Conjugate(13 Valent) 04/27/2014 TDAP Vaccine 07/08/2019 documented as of this encounter Social History Tobacco Use Types Packs/Day Years Used Date Former Smoker Cigarettes Quit: 05/13/1963 Smokeless Tobacco: Former User Tobacco Cessation: Counseling Given: No Comments: 1962 Alcohol Use Drinks/Week oz/Week Comments Yes 1 Glasses of wine 1.0 rare Sex Assigned at Date Recorded Not on file documented as of this encounter Last Filed Vital Signs Vital Sign Reading Time Taken Comments Blood Pressure 84/56 07/08/2019 8:53 AM EST Pulse 87 07/08/2019 8:53 AM EST Temperature 37.4 07/08/2019 8:53 AM C (99.4 EST F) Respiratory Rate - - Oxygen Saturation 95% 07/08/2019 8:53 AM EST Inhaled Oxygen Concentration - - Weight 108.4 kg (238 lb 14.4 oz) 07/08/2019 8:53 AM EST Height 182.9 cm (6') 07/08/2019 8:53 AM EST Body Mass Index 32.4 07/08/2019 8:53 AM EST documented in this encounter Patient Instructions Patient InstructionsBrandi Quispe MD - 07/08/2019 9:00 AM ESTFor low blood pressure - Increase water and salt intake on daily basis - Start forinef 1/2pill daily documented in this encounter Progress Notes Brandi Quispe MD - 07/08/2019 9:00 AM EST NAME:Feliciano Bradshaw [birth year] ENC Date: 07/08/2019 CC: Chief Complaint Patient presents with ? Follow Up 6 month follow up ? Hyperlipidemia HYPOTENSION ? Breathing Problem SOB for 6 mos ? Other ? Imm/Inj Tdap administered today Feliciano Bradshaw is a 84-y.o. male accompanied by daughter ( Marimar) Follow up for Paroxysmal atrial fibrillation / HTN / LOW BACK PAIN / skin cancer 1. Extensive facial surgery for skin cancer - 2. Was feeling short of breath - found that this was side effect of protonix and has stopped 2 weeks ago -still complaining of Nose being congested ( same as shortness of breath ?) - Takes flonase Pointed out to patient This symptoms may not be secondary to protonix 3. Went to ER for low blood pressure as noted on home cuff - was confirmed in the ER - - - Furosemide / metoprolol stopped - off both today - Now uses furosemide for pedal edema prn only ( has not used recently - - Had blood work in ER - 4. Has not been in fibrillation - Had recent nuclear medicine stress test with Dr Meneses - was told cardiac status good - Blood pressure was not very low in Dr Meneses office- But was very low this week in the senior client advisor officei- Was given water Current Outpatient Medications Medication Sig ? apixaban [...] ? fluticasone (FLONASE) 50 MCG/ACT Nasal Suspension [place] 2 Sprays in nose DAILY. ? furosemide [...] Work up - Echo / ultrasound / ob/gyn doctor - Dr Crockett ? Chronic obstructive pulmonary [...] Placed in 2001. ? Personal history of SD (myocardial infarction) 08/12/1995 Family History Problem Relation [...] Last attempt to quit: 05/13/1963 Years since quittin.1 ? Smokeless tobacco: Former User ? Tobacco comment: 1962 Substance Use Topics ? Alcohol use: Yes Alcohol/week: 1.0 standard drinks Types: 1 Glasses of wine per week Comment: rare ? Drug use: No Types: Prescription OBJECTIVE: sttod patient up for 1 min and felt faint when he Sat down BP (!) 84/56 | Pulse 87 | Temp 99.4 F (37.4 C) | Ht 6' (1.829 m) | Wt 238 lb 14.4 oz (108.4 kg) | SpO2 95% | BMI 32.40 kg/m . Heent Negative Neck no JVD, thyromegaly or bruit Lungs Clear CV rrr Abd soft, nontender, no organomegaly Ext no edema; no lesions; pulses intact Neuro: intellect intact ; motor including gait unremarkable A/P ICD-9-CM ICD-10-CM 1. Hypotension, unspecified hypotension type - no obvious etiology of low blood pressure - no medication respsonsible Patient became orthostatic when asked to stand for 1 min - Trial of low dose florinief - Etiology of hypotension - ? Screen for adrenal insufficiency ? 458.9 I95.9 CORTISOL FREE, 24 HOUR URINE BASIC METABOLIC PANEL 2. PAF (paroxysmal atrial fibrillation) (HCC) - regular today ? 427.31 I48.0 3. Skin cancer - under care - 173.90 C44.90 4. Heart malformation 746.9 Q24.9 5. Need for vaccination V05.9 Z23 [place] TET, DIP & ACEL PERTUSSIS(DX Z23) 6. SOB (shortness of breath) - Better off protonix - nasal congestion? Advice given Recheck at short interval Follow up 786.05 R06.02 furosemide (LASIX) 20 MG Oral Tab 782.3 R60.0 8. Gastroesophageal reflux disease without esophagitis - symptomatic off protonix - Discussed otc pepcid 530.81 K21.9 Patient symptomatic standing today - Will treat with low dose florinef and screen for adrenal insufficiency Patient Instructions For low blood pressure - Increase water and salt intake on daily basis - Start forinef 1/2pill daily AUTHOR: Brandi Quispe MD 14:14 07/08/2019 documented in this encounter Plan of Treatment Date Type Specialty Care Team Description 07/16/2019 Office Visit Internal Medicine Brandi Quispe MD [address] [place] [address] [phone] Name Type Priority Associated Diagnoses Order Schedule CORTISOL FREE, 24 HOUR Lab Routine Hypotension, unspecified Expected: 07/08 URINE hypotension type (Approximate), Expires: 01/04/2020 BASIC METABOLIC PANEL Lab Routine Hypotension, unspecified Expected: 2019 hypotension type (Approximate), Expires: 01/04/2020 Health Maintenance Due Date Last Done Comments DTaP/Tdap/Td Vaccines (1 - 1947 Tdap) Colonoscopy 04/20/2019 04/20/2014, 04/17/2011, 04/02/2006, Additional history exists INFLUENZA VACCINE (#1) 2020 06/23/2015, 03/16/2014, Postponed from 04/08/2012, Additional 01/11/2019 (Other) history exists DEPRESSION SCREENING 01/08/2020 01/07/2019 FALL RISK ASSESSMENT 01/08/2020 01/07/2019, 01/07/2019 HIV SCREENING 07/08/2020 Postponed from 1951 (Patient refused) MEDICARE ANNUAL WELLNESS 07/08/2020 04/08/2012 Postponed from VISIT 04/08/2013 (Other) ZOSTER IMMUNIZATION SERIES 07/08/2020 Postponed from (1 of 2) 1986 (Patient refused) PNEUMOCOCCAL 65+YRS Completed 09/19/2016, 04/27/2014 HEPATITIS A [...] Type Problems Progress Blood Pressure Blood Pressure 84/56 No Jose Enrique, < 150/90 (07/08/2019 MD Brandi 8:53 AM EST) Note: This is an individualized treatment (blood pressure) goal for Feliciano Bradshaw: Displayed above (on the left) is your goal for blood pressure control. Your most recent blood pressure is also shown above, on the right. You should try to achieve blood pressures that are lower than your goal listed above (on the left). Weight loss vs. 18 mo Lifestyle 8.1 (07/08/2019 8:53 AM EST) No Brandi Quispe MD max (lbs) [...] of this encounter Implants Implanted Type Area Radio Journalist Device Shelf Model / Identifier Expiration Serial / Lot Date Bone Cement, Double 80gm - [id number] Left: [id number] [id number] / Implanted: Qty: 1 on 02/06/2011 at [facility] / [id number] Lps-Flex Taper Plugs - [id number] Left: ELISABET RIVERA / Implanted: Qty: 1 on 02/06/2011 at [facility] [employer] / [id number] Lps-Flex Option Femoral F Left - [id number] Left: ELISABET RIVERA 5964- [id number] / Implanted: Qty: 1 on 02/06/2011 at [facility] [employer] / [id number] Tibial Plate Size 6 Nexgen - [id number] Left: ELISABET RIVERA 5980-47- 02 / Implanted: Qty: 1 on 02/06/2011 at [facility] [employer] / [id number] Art Surface 10mm Green - [id number] Left: ELISABET RIVERA / Implanted: Qty: 1 on 02/06/2011 at [facility] [employer] / [id number] documented as of this encounter Results Not on filedocumented in this encounter Visit Diagnoses Diagnosis PAF (paroxysmal atrial fibrillation) (HCC) Atrial fibrillation Skin cancer Unspecified malignant neoplasm of skin, site unspecified Heart malformation Unspecified congenital anomaly of heart Need for vaccination Need for prophylactic vaccination and inoculation against unspecified single disease SOB (shortness of breath) Shortness of breath Pedal edema Edema Hypotension, unspecified hypotension type Gastroesophageal reflux disease without esophagitis Esophageal reflux documented in this encounter Insurance Payer Benefit Plan / Subscriber ID Effective Dates Phone Address Type Group MEDICARE MEDICARE PART A [id number] 2001-Present Medicare & B [facility] [id number] 2016-Present [facility] OPT[employer] documented as of this encounter
--- NOTE | 2019-07-26 18:01 | ED ---
GI/ HPI - HPI Summary HPI Summary: This patient is an 84 year old male presenting to [facility] with a chief complaint of diarrhea now w concern for diarrhea. The patient states he had diarrhea from 4 days ago until early in the morning yesterday, and then the diarrhea returned today. He reports rectal pain and feeling like he has a stool ball in his rectum. He states a Hx of colon polyps. He states his last colonoscopy was 6 years ago. No nausea, vomiting, abdominal pain or fever. - History of Current Complaint Chief Complaint: EDConstipation Time Seen by Provider: 07/26/19 17:45 Stated Complaint: CRAMPING PER SISTER Hx Obtained From: Patient Onset/Duration: Started Days Ago Pain Intensity: 5 Location of Pain: Rectal - Allergy/Home Medications Allergies/Adverse Reactions: Allergies Allergy/AdvReac Type Severity Reaction Status Date / Time adhesive Allergy Intermediate Blisters Verified 07/26/19 16:31 Sulfa (Sulfonamide Allergy Mild Stomach Verified 07/26/19 16:31 Antibiotics) Cramps tramadol Allergy Mild nightmares Verified 07/26/19 16:31 pantoprazole Allergy Shortness Verified 07/26/19 16:31 of Breath Home Medications: Home Medications Finasteride [Proscar] 5 mg PO QPM 07/31/12 [History Confirmed 06/30/19] Tamsulosin CAP* [Flomax CAP*] 0.4 mg PO QPM 06/24/14 [History Confirmed 06/30/19 ] Acetaminophen TAB* [Tylenol TAB*] 325 mg PO QAM 12/26/17 [History Confirmed ] Aspirin 81 mg CHEW TAB* 81 mg PO QAM 12/26/17 [History Confirmed 06/30/19] Cetirizine* [ZyrTEC 10 MG TAB*] 10 mg PO QAM 12/26/17 [History Confirmed ] Fluticasone NASAL SPRAY 50MCG* [Flonase NASAL SPRAY 50MCG*] 1 spray BOTH NARES DAILY PRN 12/26/17 [History Confirmed 06/30/19] Gabapentin [Neurontin] 100 mg PO QAM 12/26/17 [History Confirmed 06/30/19] Simvastatin [Zocor] 40 mg PO QPM 12/26/17 [History Confirmed 06/30/19] Apixaban* [Eliquis*] 5 mg PO BID 11/25/18 [History Confirmed 06/30/19] Calcium Carbonate CHEW TAB* [Tums*] 500 mg PO BID 02/17/19 [History Confirmed ] Pantoprazole TAB * [Protonix TAB*] 40 mg PO QPM 02/17/19 [History Confirmed ] Magnesium Oxide [Magnesium] 400 mg PO QAM 06/19/19 [History Confirmed 06/30/19] PMH/Surg Hx/FS Hx/Imm Hx Endocrine/Hematology History: Denies: Hx Anticoagulant Therapy, Hx Bone Marrow Disease, Hx Diabetes, Hx Sickle Cell Disease, Hx Thyroid Disease, Hx Anemia Cardiovascular History: Reports: Hx Atrial Fibrillation, Hx Congestive Heart Failure, Hx Coronary Artery Disease, Hx Hypercholesterolemia, Hx Hypertension - on medication for, Hx Myocardial Infarction, Hx Pacemaker/ICD - [employer], Other Cardiovascular Problems/Disorders - hx of A-fib, takes eliquis daily Denies: Hx Angina, Hx Cardiomegaly, Hx Deep Vein Thrombosis, Hx Peripheral Vascular Disease, Hx Rheumatic Fever, Hx Valvular Heart Disease Respiratory History: Reports: Hx Sleep Apnea - does not see doctor for, Other Respiratory Problems/Disorders - pt has COPD--does not use 02 Denies: Hx Asthma, Hx Chronic Obstructive Pulmonary Disease (COPD), Hx Pulmonary Edema, Hx Pulmonary Embolism GI History: Reports: Hx Gastroesophageal Reflux Disease - on medication for, Hx Hiatal Hernia, Other GI Disorders - hx of inguinal hernia Denies: Hx Cirrhosis, Hx Crohn's Disease, Hx Irritable Bowel, Hx Jaundice, Hx Ulcer History: Reports: Hx Benign Prostatic Hyperplasia, Other Problems/ Disorders - BPH Denies: Hx Kidney Infection, Hx Kidney Stones, Hx Renal Disease Musculoskeletal History: Reports: Hx Arthritis, Hx Back Problems, Other Musculoskeletal History - spinal stenosis, carpal tunnel, lumbar fusion, left tkr 2009 Denies: Hx Bursitis, Hx Gout, Hx Tendonitis Sensory History: Reports: Hx Contacts or Glasses - glasses, Hx Hearing Problem - mild loss Denies: Hx Cataracts, Hx Glaucoma, Hx Hearing Aid Opthamlomology History: Reports: Hx Contacts or Glasses - glasses Denies: Hx Cataracts, Hx Glaucoma Neurological History: Reports: Hx CVA, Other Neuro Impairments/Disorders - 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 EXCISION GROWTH LEFT HIP [place] 1992 [facility]. SPINAL SURGERY BONE SPURS REMOVED FROM NECK 1994 [place]. RIGHT CORONARY ATRERY STENT 1996 [place]. INGUINAL HERNIA REPAIR 25 YRS AGO [facility]. PACEMAKER AND 2009 [facility] [place] [facility] [place]. LEFT TOTAL KNEE 2009 [place]. BILATERAL CATARACT EXT WITH IOL. Right hip growth and fluid removal--2014 [facility] [place], 2015 [place]. LEFT CARPAL TUNNEL RELEASE 12/29 [facility] [place] Hx Anesthesia Reactions: Yes - BECAME VIOLENT POST-OP SHOULDER SURG Infectious Disease History: No Infectious Disease History: Denies: Hx Hepatitis, History Other Infectious Disease, Traveled Outside the [place] in Last 30 Days - Family History Known Family History: Positive: Cardiac Disease - coronary artery disease in both parents - Social History Alcohol Use: Rare Alcohol Amount: 1/month Substance Use Type: Reports: None Hx Tobacco Use: Yes Smoking Status (MU): Former Smoker Type: Cigarettes Amount Used/How Often: 1/2 pack a day for 6 yrs Length of Time of Smoking/Using Tobacco: 6 YRS Have You Smoked in the Last Year: No Review of Systems Negative: Fever Positive: Diarrhea, Other - Rectal pain All Other Systems Reviewed And Are Negative: Yes Physical Exam - Summary Physical Exam Summary: Constitutional: Well-developed, Well-nourished, Alert. (-) Distressed Skin: Warm, Dry HENT: Normocephalic; Atraumatic Eyes: Conjunctiva normal Neck: Musculoskeletal ROM normal neck. (-) JVD, (-) Stridor, (-) Nuchal rigidity Cardio: Rhythm regular, rate normal, Heart sounds normal; Intact distal pulses; Radial pulses are 2+ and symmetric. (-) Murmur Pulmonary/Chest wall: Effort normal. (-) Respiratory distress, (-) Wheezes, (-) Rales Abd: Soft, (-) tenderness, (-) Distension, (-) Guarding, (-) Rebound Musculoskeletal: (-) Edema Lymph: (-) Cervical adenopathy Neuro: Alert, Oriented x3 Psych: Mood and affect Normal GIGU: Collar Cutter Bo. Soft brown stool. Triage Information Reviewed: Yes Vital Signs On Initial Exam: Initial Vitals Temp Pulse Resp BP Pulse Ox 97.8 F 77 16 129/92 92 07/26/19 16:26 07/26/19 16:26 07/26/19 16:26 07/26/19 16:26 07/26/19 16:26 Vital Signs Reviewed: Yes Procedures - Sedation Patient Received Moderate/Deep Sedation with Procedure: No Diagnostics - Vital Signs Vital Signs Temp Pulse Resp BP Pulse Ox 07/26/19 16:26 97.8 F 77 16 129/92 92 - Laboratory Result Diagrams: 07/26/19 22:16 07/26/19 22:16 Lab Statement: Any lab studies that have been ordered have been reviewed, and results considered in the medical decision making process. Re-Evaluation - Re-Evaluation First Eval Re-Evaluation Time: 00:04 Comment: 0004 - Patient reports improvement with pain but still no success with BM. CT abd/pel to be obtained. GIGU Course/Dx - Course Assessment/Plan: 84 y/o male p/w concern for constipation. - PE well appearing , abd soft. Rectal w soft stool. Patient still reporting constipation. Will try soap suds enema. Do not suspect obstruction. - Diagnoses Provider Diagnoses: Constipation Discharge ED - Sign-Out/Discharge Documenting (check all that apply): Patient Departure - Discharge - Discharge Plan Condition: Good Disposition: HOME Patient Education Materials: Constipation (ED) Referrals: Brandi Quispe MD [Primary Care Provider] - Additional Instructions: You were seen in the emergency department for constipation. Please follow up with your primary care doctor in next 2-3 days and return to emergency department for abdominal pain, fevers, vomiting,worsening or concerning symptoms. It was a pleasure taking care of you today. - Billing Disposition and Condition Condition: GOOD Disposition: Home - Attestation Statements Document Initiated by Scribe: Yes Documenting Scribe: Demond Jeronimo Provider For Whom Becky is Documenting (Include Credential): Patti Juarez MD Scribe Attestation: Demond Serrano scribed for Patti Juarez MD on 07/27/19 at 1622. Scribe Documentation Reviewed: Yes Provider Attestation: The documentation as recorded by the Demond leonardo accurately reflects the service I personally performed and the decisions made by me, Patti Juarez MD Status of Scribe Document: Viewed
--- NOTE | 2019-07-26 20:49 | ED ---
Progress - Progress Note Progress Note: Patient received as sign-out from Dr. Juarez at 1900 07/26/19 pending re- evaluation and disposition. Patient reports continued constipation. Abdomen x- ray to be obtained. Abdominal x-ray showed no acute process. UA, bloodwork ordered. Fluids, Zofran, and Toradol given. 0004 - Patient reports improvement with pain but still no success with BM. CT abd/pel to be obtained. CT ABD/PEL IMPRESSION: There is moderate stool volume in the colon and rectum with no signs of bowel obstruction. The rectum contains formed stool but not dilated sufficiently to diagnose fecal impaction. THIS REPORT WAS REVIEWED BY ED PHYSICIAN. Patient discharge to home. He was given Magnesium Citrate to go and advised to take Miralax. Re-Evaluation - Re-Evaluation First Eval Re-Evaluation Time: 00:04 Comment: 0004 - Patient reports improvement with pain but still no success with BM. CT abd/pel to be obtained. Course/Dx - Course Course Of Treatment: During ED course, patient received fluids, Zofran 4 mg IV and Toradol 15 mg IV. - Diagnoses Provider Diagnoses: Constipation Discharge ED - Sign-Out/Discharge Documenting (check all that apply): Patient Departure - discharge - Discharge Plan Condition: Good Disposition: HOME Patient Education Materials: Constipation (ED) Referrals: Brandi Quispe MD [Primary Care Provider] - Additional Instructions: You were seen in the emergency department for constipation. Please follow up with your primary care doctor in next 2-3 days and return to emergency department for abdominal pain, fevers, vomiting,worsening or concerning symptoms. It was a pleasure taking care of you today. - Billing Disposition and Condition Condition: GOOD Disposition: Home - Attestation Statements Document Initiated by Becky: Yes Documenting Scribe: VICKI OH Provider For Whom Becky is Documenting (Include Credential): FELI PACHECO MD Scribe Attestation: I, VICKI OH, scribed for FELI PACHECO MD on 07/27/19 at 0532. Scribe Documentation Reviewed: Yes Provider Attestation: The documentation as recorded by the VICKI leonardo accurately reflects the service I personally performed and the decisions made by me, FELI PACHECO MD Status of Scribe Document: Viewed
[2019-07-26] MEDS ORDERED: NS 0.9% 1000 ML** 1,000 ML IV ONE (21:32)
[2019-07-26] MEDS ORDERED: Ketorolac INJ* 30 MG/ML 1 ML VIAL IV PUSH ONE (21:35)
[2019-07-26] MEDS ORDERED: Ondansetron INJ* 2 MG/ML VIAL IV ONE (21:35)
[2019-07-26 22:24] LABS: ABS Eosinophils 0.1 10^3/ul (0-0.6); ABS Lymphocytes 3.1 10^3/ul (1.0-4.8); ABS Monocytes 0.8 10^3/ul (0-0.8); Eosinophil % 0.8 %; Hematocrit 40 % (42-52); Hemoglobin 13.9 g/dL (14.0-18.0); Lymphocyte % 31.1 %; Mean Corpuscular HGB Conc 35 g/dL (31-36); Mean Corpuscular Hemoglobin 31 pg (27-31); Mean Corpuscular Volume 91 fL (80-94); Mean Platelet Volume 8.9 fL (7.4-10.4); Nucleated Red Blood Cells % 0.2; Platelet Count 164 10^3/uL (150-450); Red Blood Count 4.43 10^6 /uL (4.18-5.48); Red Cell Distribution Width 14 % (10-15)
[2019-07-26 22:40] LABS: Albumin 3.9 g/dL (3.2-5.2); Albumin/Globulin Ratio 1.4 (1-3); BUN/Creatinine Ratio 24.4 (8-20); Calcium 9.4 mg/dL (8.6-10.3); EGFR African American 97.5 (>60); EGFR Non-African American 80.6 (>60); Globulin 2.7 g/dL (2-4); Potassium 4.1 mmol/L (3.5-5.0); Total Bilirubin 0.6 mg/dL (0.2-1.0); Total Protein 6.6 g/dL (6.4-8.9)
[2019-07-26 23:39] LABS: Urine Appearance Clear; Urine Bilirubin Negative (Negative); Urine Blood 1+ (Negative); Urine Color Yellow; Urine Glucose Negative (Negative); Urine Ketones Trace (Negative); Urine Nitrite Negative (Negative); Urine Protein Negative (Negative); Urine Specific Gravity 1.013 (1.010-1.030); Urine Urobilinogen Negative (Negative)
[2019-07-26 23:43] LABS: Urine Bacteria Absent (Absent); Urine Red Blood Cell Trace(0-2/hpf) (Absent); Urine White Blood Cell Trace(0-5/hpf) (Absent)
[2019-07-27] MEDS ORDERED: Iohexol 300* (CONTRAST) 10 ML SDV IV ONE (00:56)
[2019-07-27] MEDS ORDERED: Magnesium CITRATE* 300 ML BTL PO ONE (02:03)
[2019-07-27 03:00] VITALS: BP 144/73
== END 2019-07-27 02:59 | disposition home or self-care (01) ==
LOC: ED 16:23
DX: K59.00 Constipation, unspecified (principal); I48.91 Unspecified atrial fibrillation; I11.0 Hypertensive heart disease with heart failure; I50.9 Heart failure, unspecified; I25.10 Atherosclerotic heart disease of native coronary artery without angina pectoris; E78.00 Pure hypercholesterolemia, unspecified; I25.2 Old myocardial infarction; J44.9 Chronic obstructive pulmonary disease, unspecified; K21.9 Gastro-esophageal reflux disease without esophagitis; N40.0 Benign prostatic hyperplasia without lower urinary tract symptoms; Z86.73 Personal history of transient ischemic attack (TIA), and cerebral infarction without residual deficits; Z95.5 Presence of coronary angioplasty implant and graft; Z95.0 Presence of cardiac pacemaker; Z96.652 Presence of left artificial knee joint; Z87.891 Personal history of nicotine dependence; Z85.828 Personal history of other malignant neoplasm of skin; Z79.01 Long term (current) use of anticoagulants; Z79.82 Long term (current) use of aspirin; Z79.899 Other long term (current) drug therapy; Z88.2 Allergy status to sulfonamides; Z88.5 Allergy status to narcotic agent; Z88.8 Allergy status to other drugs, medicaments and biological substances
CPT/HCPCS: 36415; 74018; 74177; 80053; 81003; 81015; 83605; 85025; 87086; 96361; 96374; 96375; 99283; A9270-GY; J1885; J2405; Q9967

== ENCOUNTER 2020-07-08 11:57 | Inpatient (IN) ==
[2020-07-08] MEDS ORDERED: Metoprolol Tartrate 5 mg VIAL 5 ml VIAL (1 mg/ml) IV ONE (12:31)
[2020-07-08 12:40] LABS: ABS Lymphocytes 2.7 10^3/ul (1.0-4.8); ABS Monocytes 0.9 10^3/ul (0-0.8); ABS Neutrophils 8.3 10^3/ul (1.5-7.7); Eosinophil % 0.4 %; Hematocrit 39 % (42-52); Hemoglobin 12.9 g/dL (14.0-18.0); Lymphocyte % 22.4 %; Mean Corpuscular HGB Conc 33 g/dL (31-36); Mean Corpuscular Hemoglobin 30 pg (27-31); Mean Corpuscular Volume 91 fL (80-94); Mean Platelet Volume 9.3 fL (7.4-10.4); Platelet Count 200 10^3/uL (150-450); Red Cell Distribution Width 14 % (10-15); White Blood Count 11.9 10^3/uL (3.5-10.8)
[2020-07-08 12:58] LABS: Activated Partial Thrombo Time 35.6 seconds (26.0-38.0); INR 1.63 (0.82-1.09)
[2020-07-08 13:01] LABS: CKMB ng/mL 3.4 ng/mL (0.6-6.3)
[2020-07-08 13:05] LABS: Troponin I 0.04 ng/mL (<0.03)
[2020-07-08 13:10] LABS: ALT 12 U/L (7-52); AST 14 U/L (13-39); Albumin 3.8 g/dL (3.2-5.2); Albumin/Globulin Ratio 1.5 (1-3); Alkaline Phosphatase 48 U/L (34-104); Anion Gap 8 mmol/L (2-11); Blood Urea Nitrogen 23 mg/dL (6-24); CO2 Carbon Dioxide 25 mmol/L (22-32); Calcium 9.2 mg/dL (8.6-10.3); Chloride 105 mmol/L (101-111); Creatine Kinase 63 U/L (10-223); EGFR African American 90.3 (>60); EGFR Non-African American 74.6 (>60); Globulin 2.5 g/dL (2-4); Glucose 119 mg/dL (70-100); Magnesium 1.7 mg/dL (1.9-2.7); Potassium 3.8 mmol/L (3.5-5.0); Sodium 138 mmol/L (135-145); Total Protein 6.3 g/dL (6.4-8.9)
[2020-07-08] MEDS ORDERED: Iodixanol (CONTRAST) 320 MG/ML 100 ML SDV IV ONE ×2 (13:16→13:26)
[2020-07-08] MEDS ORDERED: NS 0.9% 1000 ml BAG 1,000 ML IV ONE (14:01)
[2020-07-08 16:10] LABS: Troponin I 0.07 ng/mL (<0.03)
[2020-07-08 16:11] LABS: Urine Appearance Clear; Urine Bilirubin Negative (Negative); Urine Blood 1+ (Negative); Urine Color Yellow; Urine Glucose Negative (Negative); Urine Ketones Negative (Negative); Urine Nitrite Negative (Negative); Urine Protein Negative (Negative); Urine Urobilinogen Negative (Negative)
[2020-07-08 16:27] LABS: Urine Specific Gravity > 1.059 (1.010-1.030)
[2020-07-08 18:49] LABS: Troponin I 0.09 ng/mL (<0.03)
[2020-07-08 22:07] LABS: Troponin I 0.13 ng/mL (<0.03)
[2020-07-09 01:02] LABS: Troponin I 0.16 ng/mL (<0.03)
[2020-07-09 04:07] LABS: Troponin I 0.15 ng/mL (<0.03)
[2020-07-09 06:38] LABS: ABS Eosinophils 0.2 10^3/ul (0-0.6); ABS Lymphocytes 2.7 10^3/ul (1.0-4.8); ABS Monocytes 0.9 10^3/ul (0-0.8); ABS Neutrophils 6.6 10^3/ul (1.5-7.7); Eosinophil % 1.5 %; Hematocrit 35 % (42-52); Hemoglobin 12.2 g/dL (14.0-18.0); Lymphocyte % 26.3 %; Mean Corpuscular HGB Conc 35 g/dL (31-36); Mean Corpuscular Hemoglobin 31 pg (27-31); Mean Corpuscular Volume 90 fL (80-94); Mean Platelet Volume 8.9 fL (7.4-10.4); Nucleated Red Blood Cells % 0.3; Platelet Count 178 10^3/uL (150-450); Red Blood Count 3.92 10^6 /uL (4.18-5.48); Red Cell Distribution Width 15 % (10-15); White Blood Count 10.4 10^3/uL (3.5-10.8)
[2020-07-09 06:53] LABS: Anion Gap 5 mmol/L (2-11); BUN/Creatinine Ratio 27.8 (8-20); Blood Urea Nitrogen 22 mg/dL (6-24); CO2 Carbon Dioxide 26 mmol/L (22-32); Calcium 8.5 mg/dL (8.6-10.3); Chloride 106 mmol/L (101-111); EGFR African American 113.1 (>60); EGFR Non-African American 93.4 (>60); Glucose 94 mg/dL (70-100); Potassium 3.9 mmol/L (3.5-5.0); Sodium 137 mmol/L (135-145)
[2020-07-09 07:01] LABS: Troponin I 0.14 ng/mL (<0.03)
[2020-07-09 10:40] LABS: Troponin I 0.11 ng/mL (<0.03)
[2020-07-10 05:59] LABS: ABS Eosinophils 0.2 10^3/ul (0-0.6); ABS Lymphocytes 3.1 10^3/ul (1.0-4.8); ABS Monocytes 0.9 10^3/ul (0-0.8); ABS Neutrophils 6.1 10^3/ul (1.5-7.7); Eosinophil % 1.7 %; Hematocrit 36 % (42-52); Hemoglobin 12.5 g/dL (14.0-18.0); Lymphocyte % 29.9 %; Mean Corpuscular HGB Conc 35 g/dL (31-36); Mean Corpuscular Hemoglobin 31 pg (27-31); Mean Corpuscular Volume 90 fL (80-94); Mean Platelet Volume 8.9 fL (7.4-10.4); Platelet Count 192 10^3/uL (150-450); Red Blood Count 4.03 10^6 /uL (4.18-5.48); Red Cell Distribution Width 15 % (10-15); White Blood Count 10.2 10^3/uL (3.5-10.8)
[2020-07-10 06:15] LABS: Potassium 3.8 mmol/L (3.5-5.0)
[2020-07-10 06:16] LABS: Calcium 9.1 mg/dL (8.6-10.3); EGFR African American 105.3 (>60); EGFR Non-African American 87.1 (>60)
[2020-07-10 10:31] LABS: ABS Eosinophils 0.1 10^3/ul (0-0.6); ABS Lymphocytes 2.2 10^3/ul (1.0-4.8); ABS Monocytes 0.7 10^3/ul (0-0.8); ABS Neutrophils 5.5 10^3/ul (1.5-7.7); Eosinophil % 1.3 %; Hematocrit 35 % (42-52); Hemoglobin 12.1 g/dL (14.0-18.0); Lymphocyte % 25.6 %; Mean Corpuscular HGB Conc 35 g/dL (31-36); Mean Corpuscular Hemoglobin 31 pg (27-31); Mean Corpuscular Volume 90 fL (80-94); Mean Platelet Volume 8.8 fL (7.4-10.4); Nucleated Red Blood Cells % 0.1; Platelet Count 178 10^3/uL (150-450); Red Cell Distribution Width 14 % (10-15); White Blood Count 8.5 10^3/uL (3.5-10.8)
[2020-07-10 10:46] LABS: EGFR African American 111.4 (>60); EGFR Non-African American 92.1 (>60)
[2020-07-10 10:50] LABS: Activated Partial Thrombo Time 35.2 seconds (26.0-38.0); INR 1.28 (0.82-1.09)
[2020-07-10] MEDS ORDERED: Magnesium Hydroxide LIQ 30 ML UDC PO ONE (15:37)
[2020-07-10] MEDS ORDERED: Magnesium Hydroxide LIQ 30 ML UDC PO PRN (15:37)
[2020-07-10] MEDS: Heparin 5000 UNITS/ML 1 mL VIAL SUBCUT SCH ×2 (15:50→20:58)
[2020-07-10] MEDS ORDERED: NS 0.9% 1000 ml BAG 1,000 ML IV SCH (23:55)
[2020-07-11] MEDS: Heparin 5000 UNITS/ML 1 mL VIAL SUBCUT SCH ×2 (05:04→13:10)
[2020-07-11 06:25] LABS: ABS Eosinophils 0.1 10^3/ul (0-0.6); ABS Lymphocytes 3.8 10^3/ul (1.0-4.8); ABS Monocytes 0.8 10^3/ul (0-0.8); ABS Neutrophils 5.4 10^3/ul (1.5-7.7); Eosinophil % 1.4 %; Hematocrit 39 % (42-52); Hemoglobin 13.4 g/dL (14.0-18.0); Lymphocyte % 37.7 %; Mean Corpuscular HGB Conc 34 g/dL (31-36); Mean Corpuscular Hemoglobin 31 pg (27-31); Mean Corpuscular Volume 90 fL (80-94); Mean Platelet Volume 9.1 fL (7.4-10.4); Nucleated Red Blood Cells % 0.1; Platelet Count 199 10^3/uL (150-450); Red Blood Count 4.32 10^6 /uL (4.18-5.48); Red Cell Distribution Width 15 % (10-15); White Blood Count 10.2 10^3/uL (3.5-10.8)
[2020-07-11 06:49] LABS: BUN/Creatinine Ratio 25.6 (8-20); Calcium 9.4 mg/dL (8.6-10.3); EGFR African American 108.3 (>60); EGFR Non-African American 89.5 (>60)
[2020-07-11] MEDS ORDERED: VERAPAMIL 2.5 MG/ML 2 ML VIAL ** 5 mg/2 ml ONE (09:05)
[2020-07-11] MEDS ORDERED: fentaNYL 100 mcg/2 ml 50 MCG/ML VIAL ONE (09:05)
[2020-07-11] MEDS ORDERED: Heparin 1,000 UNIT/ML 10 ml (10,000 UNITS) CATHLAB/DIALYSIS ONE (09:05)
[2020-07-11] MEDS ORDERED: Midazolam 5 mg/5 ml VIAL 1 mg/ml 5 ml VIAL (5 mg) ONE (09:05)
[2020-07-11] MEDS ORDERED: Heparin 2 UNITS/ML 1000 mls 2,000 ML IV ONE (09:06)
[2020-07-11] MEDS ORDERED: nitroGLYCERIN DRIP 25,000 MCG/250 ML BTL ONE (09:06)
[2020-07-11] MEDS ORDERED: Lidocaine 1% VIAL 10 MG/ML VIAL ONE (09:06)
[2020-07-11] MEDS ORDERED: Iohexol 350 (CONTRAST) 200 ML MDV IV ONE ×3 (09:06→10:54)
[2020-07-11 14:22] LABS: POC SO2 97 %
[2020-07-11 14:22] LABS: POC SO2 75 %
[2020-07-11 14:22] LABS: POC SO2 73 %
[2020-07-11 16:08] VITALS: BP 146/79
== END 2020-07-11 18:30 | disposition home or self-care (01) | DRG 287 ==
LOC: ED 11:57 → MEDTELE 11:57
PROVIDERS: ADMIT Internal Medicine; ATTEND Internal Medicine

== ENCOUNTER 2020-09-10 19:46 | Inpatient (IN) ==
[2020-09-10] MEDS ORDERED: Lactated Ringers 1000 ml BAG IV.FLUID IV ONE (20:01)
[2020-09-10 20:54] LABS: ABS Lymphocytes 2.1 10^3/ul (1.0-4.8); ABS Monocytes 0.5 10^3/ul (0-0.8); ABS Neutrophils 13.6 10^3/ul (1.5-7.7); Eosinophil % 0.1 %; Hematocrit 36 % (42-52); Hemoglobin 12.2 g/dL (14.0-18.0); Lymphocyte % 13.1 %; Mean Corpuscular HGB Conc 34 g/dL (31-36); Mean Corpuscular Hemoglobin 31 pg (27-31); Mean Corpuscular Volume 91 fL (80-94); Mean Platelet Volume 9.3 fL (7.4-10.4); Nucleated Red Blood Cells % 0.1; Platelet Count 119 10^3/uL (150-450); Red Blood Count 3.95 10^6 /uL (4.18-5.48); Red Cell Distribution Width 14 % (10-15); White Blood Count 16.3 10^3/uL (3.5-10.8)
[2020-09-10 20:58] LABS: Activated Partial Thrombo Time 32.3 seconds (26.0-38.0); INR 1.4 (0.82-1.09)
[2020-09-10 21:00] LABS: Influenza A Molecular Negative (Negative); Influenza B Molecular Negative (Negative)
[2020-09-10 21:03] LABS: ALT 7 U/L (7-52); Albumin 3.5 g/dL (3.2-5.2); Albumin/Globulin Ratio 1.4 (1-3); Alkaline Phosphatase 35 U/L (34-104); Blood Urea Nitrogen 23 mg/dL (6-24); C Reactive Protein 35.54 mg/L (<8.01); CO2 Carbon Dioxide 24 mmol/L (22-32); Calcium 8.4 mg/dL (8.6-10.3); Chloride 103 mmol/L (101-111); EGFR African American 97.3 (>60); EGFR Non-African American 80.4 (>60); Globulin 2.5 g/dL (2-4); Glucose 153 mg/dL (70-100); Sodium 133 mmol/L (135-145)
[2020-09-10 21:08] LABS: Troponin I 0.17 ng/mL (<0.03)
[2020-09-10 21:30] LABS: Anion Gap 6 mmol/L (2-11); Potassium 4.1 mmol/L (3.5-5.0)
[2020-09-10 21:34] LABS: AST 14 U/L (13-39)
[2020-09-10 22:32] LABS: Urine Appearance Clear; Urine Bilirubin Negative (Negative); Urine Blood 2+ (Negative); Urine Color Amber; Urine Glucose Negative (Negative); Urine Ketones Negative (Negative); Urine Nitrite Negative (Negative); Urine Protein 1+(30 mg/dL) (Negative); Urine Specific Gravity 1.024 (1.002-1.030); Urine Urobilinogen Negative (Negative)
[2020-09-10 22:44] LABS: Urine Bacteria Absent (Absent); Urine Red Blood Cell 1+(3-5/hpf) (Absent); Urine Squamous Epithelial Cell Present (Absent); Urine White Blood Cell Trace(0-5/hpf) (Absent)
[2020-09-10] MEDS ORDERED: Piperacillin/Tazobac ADVAN 3.375 GM in NS 0.9% 100 ml BAG 100 ML IV ONE (23:15)
[2020-09-10] MEDS ORDERED: Zosyn per Pharmacy NOTE FOLLOW UP SCH (23:45)
[2020-09-10] MEDS ORDERED: Vancomycin per Pharmacy 1 EA NOTE FOLLOW UP SCH (23:45)
[2020-09-10] MEDS ORDERED: Vancomycin 1,000 MG in NS 0.9% 250 ml 250 ML IVPB ONE (23:58)
[2020-09-11] MEDS ORDERED: Ondansetron 4 mg VIAL 2 MG/ML 2 ml VIAL IV PRN (00:01)
[2020-09-11 00:09] LABS: Troponin I 0.17 ng/mL (<0.03)
[2020-09-11] MEDS ORDERED: Vancomycin 1,750 MG in NS 0.9% 500 ml BAG 500 ML IVPB ONE (00:10)
[2020-09-11] MEDS: guaiFENesin 100 mg/5 ml LIQ unit dose cup PO PRN ×2 (02:08→19:19)
[2020-09-11 02:27] LABS: Troponin I 0.17 ng/mL (<0.03)
[2020-09-11 04:53] LABS: ABS Lymphocytes 3.3 10^3/ul (1.0-4.8); ABS Monocytes 0.9 10^3/ul (0-0.8); ABS Neutrophils 16.8 10^3/ul (1.5-7.7); Eosinophil % 0.2 %; Hematocrit 34 % (42-52); Hemoglobin 11.4 g/dL (14.0-18.0); Lymphocyte % 15.7 %; Mean Corpuscular HGB Conc 34 g/dL (31-36); Mean Corpuscular Hemoglobin 31 pg (27-31); Mean Corpuscular Volume 91 fL (80-94); Mean Platelet Volume 8.8 fL (7.4-10.4); Platelet Count 110 10^3/uL (150-450); Red Blood Count 3.71 10^6 /uL (4.18-5.48); Red Cell Distribution Width 15 % (10-15)
[2020-09-11 05:25] LABS: Troponin I 0.15 ng/mL (<0.03)
[2020-09-11] MEDS: ZOSYN 3.375 GM Q8H per EXTENDED INFUSION IV SCH ×3 (05:42→20:42)
[2020-09-11 08:32] LABS: Anion Gap 8 mmol/L (2-11); Blood Urea Nitrogen 20 mg/dL (6-24); CO2 Carbon Dioxide 24 mmol/L (22-32); Calcium 8.5 mg/dL (8.6-10.3); Chloride 103 mmol/L (101-111); EGFR Non-African American 79.4 (>60); Glucose 125 mg/dL (70-100); Potassium 4.1 mmol/L (3.5-5.0); Sodium 135 mmol/L (135-145)
[2020-09-11 08:38] LABS: Troponin I 0.13 ng/mL (<0.03)
[2020-09-11] MEDS: Fluticasone NASAL SPRAY 50MCG 16 gm SPRAY BTL INTRANASAL SCH (09:56)
[2020-09-11] MEDS ORDERED: Iodixanol (CONTRAST) 320 MG/ML 100 ML SDV IV ONE (15:08)
[2020-09-11] MEDS: Vancomycin 1000 MG in NS 0.9% 250 ML IVPB SCH (16:09)
[2020-09-11] MEDS: CMC:Simvastatin 20 mg TAB (NF) PO SCH (17:58)
[2020-09-11] MEDS ORDERED: Albuterol HFA INHALER 8 gm MDI INH PRN (18:35)
[2020-09-11] MEDS ORDERED: Calcium Carb (TUMS) 500 mg CHEW TAB PO PRN (18:35)
[2020-09-12] MEDS: Vancomycin 1000 MG in NS 0.9% 250 ML IVPB SCH (02:06)
[2020-09-12] MEDS: ZOSYN 3.375 GM Q8H per EXTENDED INFUSION IV SCH (04:30)
[2020-09-12 05:49] LABS: ABS Eosinophils 0.2 10^3/ul (0-0.6); ABS Lymphocytes 3.1 10^3/ul (1.0-4.8); ABS Monocytes 1.1 10^3/ul (0-0.8); ABS Neutrophils 10.4 10^3/ul (1.5-7.7); Eosinophil % 1.6 %; Hematocrit 31 % (42-52); Hemoglobin 10.4 g/dL (14.0-18.0); Lymphocyte % 20.8 %; Mean Corpuscular HGB Conc 33 g/dL (31-36); Mean Corpuscular Hemoglobin 31 pg (27-31); Mean Corpuscular Volume 92 fL (80-94); Mean Platelet Volume 9.4 fL (7.4-10.4); Platelet Count 107 10^3/uL (150-450); Red Blood Count 3.42 10^6 /uL (4.18-5.48); Red Cell Distribution Width 15 % (10-15); White Blood Count 14.9 10^3/uL (3.5-10.8)
[2020-09-12 06:08] LABS: C Reactive Protein 136.42 mg/L (<8.01); Calcium 8.4 mg/dL (8.6-10.3); EGFR African American 94.8 (>60); EGFR Non-African American 78.4 (>60); Potassium 3.9 mmol/L (3.5-5.0)
[2020-09-12] MEDS: Fluticasone NASAL SPRAY 50MCG 16 gm SPRAY BTL INTRANASAL SCH (08:27)
[2020-09-12] MEDS: cefTRIAXone 1 gm/50 mL NS BAG 1 GM/50 ML BAG IVPB SCH (11:42)
[2020-09-12] MEDS: Azithromycin 500 mg/250 ml NS 500 MG/250 ML BAG IVPB SCH (12:32)
[2020-09-12] MEDS ORDERED: Vancomycin Trough Check NOTE FOLLOW UP ONE (13:30)
[2020-09-12] MEDS: CMC:Simvastatin 20 mg TAB (NF) PO SCH (17:39)
[2020-09-13 05:44] LABS: ABS Eosinophils 0.2 10^3/ul (0-0.6); ABS Monocytes 1.1 10^3/ul (0-0.8); ABS Neutrophils 9.1 10^3/ul (1.5-7.7); Eosinophil % 1.3 %; Hematocrit 32 % (42-52); Hemoglobin 10.8 g/dL (14.0-18.0); Lymphocyte % 22.3 %; Mean Corpuscular HGB Conc 34 g/dL (31-36); Mean Corpuscular Hemoglobin 31 pg (27-31); Mean Corpuscular Volume 92 fL (80-94); Mean Platelet Volume 9.3 fL (7.4-10.4); Platelet Count 119 10^3/uL (150-450); Red Blood Count 3.49 10^6 /uL (4.18-5.48); Red Cell Distribution Width 15 % (10-15); White Blood Count 13.3 10^3/uL (3.5-10.8)
[2020-09-13 05:59] LABS: EGFR African American 97.3 (>60); EGFR Non-African American 80.4 (>60); Potassium 4.1 mmol/L (3.5-5.0)
[2020-09-13] MEDS: Fluticasone NASAL SPRAY 50MCG 16 gm SPRAY BTL INTRANASAL SCH (08:59)
[2020-09-13] MEDS: cefTRIAXone 1 gm/50 mL NS BAG 1 GM/50 ML BAG IVPB SCH (11:32)
[2020-09-13] MEDS: Azithromycin 500 mg/250 ml NS 500 MG/250 ML BAG IVPB SCH (12:33)
[2020-09-13] MEDS: CMC:Simvastatin 20 mg TAB (NF) PO SCH (18:46)
[2020-09-14] MEDS ORDERED: Metoprolol Tartrate 5 mg VIAL 5 ml VIAL (1 mg/ml) IV ONE (06:34)
[2020-09-14] MEDS ORDERED: Albuterol 2.5mg/3 ml (0.083%) NEB.SOLN INH PRN (07:19)
[2020-09-14 07:47] LABS: ABS Eosinophils 0.2 10^3/ul (0-0.6); ABS Lymphocytes 2.4 10^3/ul (1.0-4.8); ABS Monocytes 0.9 10^3/ul (0-0.8); ABS Neutrophils 5.7 10^3/ul (1.5-7.7); Eosinophil % 1.9 %; Hematocrit 32 % (42-52); Hemoglobin 11.1 g/dL (14.0-18.0); Mean Corpuscular HGB Conc 35 g/dL (31-36); Mean Corpuscular Hemoglobin 31 pg (27-31); Mean Corpuscular Volume 91 fL (80-94); Mean Platelet Volume 9.7 fL (7.4-10.4); Platelet Count 129 10^3/uL (150-450); Red Blood Count 3.54 10^6 /uL (4.18-5.48); Red Cell Distribution Width 14 % (10-15); White Blood Count 9.2 10^3/uL (3.5-10.8)
[2020-09-14] MEDS: Fluticasone NASAL SPRAY 50MCG 16 gm SPRAY BTL INTRANASAL SCH (09:08)
[2020-09-14] MEDS: Azithromycin 500 mg/250 ml NS 500 MG/250 ML BAG IVPB SCH (11:49)
[2020-09-14 15:40] VITALS: BP 121/67
== END 2020-09-14 17:32 | disposition home or self-care (01) ==
LOC: MEDTELE 19:46 → ED 19:46 → OBSVTOIN 23:56 → MEDTELE 09-11 01:58 → MED 09-11 07:27 → MEDTELE 09-12 18:44
PROVIDERS: ADMIT Internal Medicine; ATTEND Internal Medicine

== ENCOUNTER 2021-06-17 08:07 | Inpatient (IN) ==
[2021-06-17 09:02] LABS: ABS Eosinophils 0.1 10^3/ul (0-0.6); ABS Lymphocytes 2.5 10^3/ul (1.0-4.8); ABS Monocytes 0.6 10^3/ul (0-0.8); ABS Neutrophils 3.9 10^3/ul (1.5-7.7); Eosinophil % 1.3 %; Hematocrit 38 % (42-52); Hemoglobin 12.9 g/dL (14.0-18.0); Lymphocyte % 34.8 %; Mean Corpuscular HGB Conc 34 g/dL (31-36); Mean Corpuscular Hemoglobin 30 pg (27-31); Mean Corpuscular Volume 90 fL (80-94); Mean Platelet Volume 9.4 fL (7.4-10.4); Nucleated Red Blood Cells % 0.2; Platelet Count 139 10^3/uL (150-450); Red Blood Count 4.25 10^6 /uL (4.18-5.48); Red Cell Distribution Width 16 % (10-15); White Blood Count 7.1 10^3/uL (3.5-10.8)
[2021-06-17 09:20] LABS: Rapid COVID-19 Molecular Undetected (Undetected)
[2021-06-17 09:21] LABS: INR 1.51 (0.86-1.15)
[2021-06-17 09:22] LABS: ALT 10 U/L (7-52); AST 14 U/L (13-39); Albumin 3.7 g/dL (3.2-5.2); Albumin/Globulin Ratio 1.5 (1-3); Alkaline Phosphatase 42 U/L (35-149); Anion Gap 7 mmol/L (2-11); Blood Urea Nitrogen 22 mg/dL (6-24); CO2 Carbon Dioxide 26 mmol/L (22-32); Calcium 9.1 mg/dL (8.6-10.3); Chloride 106 mmol/L (101-111); Creatine Kinase 57 U/L (10-223); Globulin 2.4 g/dL (2-4); Glucose 111 mg/dL (70-100); Magnesium 1.8 mg/dL (1.9-2.7); Potassium 3.6 mmol/L (3.5-5.0); Sodium 139 mmol/L (135-145); Total Protein 6.1 g/dL (6.4-8.9); eGFR CKD-EPI 81.5 (>60)
[2021-06-17 09:28] LABS: Troponin I 0.07 ng/mL (<0.03)
[2021-06-17] MEDS ORDERED: Magnesium Sulfate 2 gm BAG 2 GM/50 ML BAG IVPB ONE (10:23)
[2021-06-17] MEDS ORDERED: Furosemide 40 mg/4 ml IV VIAL IV ONE (12:33)
[2021-06-17] MEDS ORDERED: Fluticasone NASAL SPRAY 50MCG 16 gm SPRAY BTL INTRANASAL PRN (12:34)
[2021-06-17 17:01] LABS: Troponin I 0.05 ng/mL (<0.03)
[2021-06-18 08:47] LABS: Calcium 9.3 mg/dL (8.6-10.3); Magnesium 2.1 mg/dL (1.9-2.7); Potassium 3.7 mmol/L (3.5-5.0); eGFR CKD-EPI 80.5 (>60)
[2021-06-18] MEDS ORDERED: Furosemide 20 mg/2 ml IV VIAL IV ONE (10:04)
[2021-06-18 15:04] LABS: HDL Cholesterol 46.4 mg/dL
[2021-06-19 06:24] LABS: Calcium 9.1 mg/dL (8.6-10.3); Potassium 3.9 mmol/L (3.5-5.0); eGFR CKD-EPI 75.6 (>60)
[2021-06-19] MEDS ORDERED: Potassium Chlor 20 meq TAB.ER PO ONE (08:07)
[2021-06-19] MEDS ORDERED: Regadenoson 0.4 MG/5 ML SYRINGE ONE (09:10)
[2021-06-19] MEDS ORDERED: Aminophylline 25 MG/ML VIAL ONE (09:11)
[2021-06-19] MEDS ORDERED: Perflutren Lipid Microsphere 3 ML VIAL ONE (11:22)
[2021-06-20 08:29] LABS: Hematocrit 37 % (42-52); Hemoglobin 12.7 g/dL (14.0-18.0); Mean Corpuscular HGB Conc 34 g/dL (31-36); Mean Corpuscular Hemoglobin 31 pg (27-31); Mean Corpuscular Volume 90 fL (80-94); Mean Platelet Volume 9.3 fL (7.4-10.4); Platelet Count 126 10^3/uL (150-450); Red Blood Count 4.16 10^6 /uL (4.18-5.48); Red Cell Distribution Width 15 % (10-15); White Blood Count 7.2 10^3/uL (3.5-10.8)
[2021-06-20 08:45] LABS: Calcium 9.1 mg/dL (8.6-10.3); eGFR CKD-EPI 68.8 (>60)
[2021-06-20] MEDS ORDERED: Furosemide 20 mg/2 ml IV VIAL IV SLOW PU ONE (09:36)
[2021-06-20] MEDS ORDERED: Naloxone 0.4 mg VIAL 0.4 mg/ml 1 ml VIAL ONE (11:32)
[2021-06-20] MEDS ORDERED: fentaNYL 100 mcg/2 ml 50 MCG/ML VIAL ONE (11:32)
[2021-06-20] MEDS ORDERED: Flumazenil 0.5 mg/5 ml 0.1 MG/ML 5 ml VIAL ONE (11:32)
[2021-06-20] MEDS ORDERED: Midazolam 5 mg/5 ml VIAL 1 mg/ml 5 ml VIAL (5 mg) ONE (11:32)
[2021-06-20 18:48] VITALS: BP 129/66
== END 2021-06-20 18:45 | disposition home or self-care (01) | DRG 291 ==
LOC: ED 08:07 → EDHOLD 12:18 → SUATTDRO 12:18 → MEDTELE 16:43
PROVIDERS: ADMIT Internal Medicine; ATTEND Family Medicine
PROC: CARDVER (ICD-10-PCS; 2021-06-20 12:20)

== ENCOUNTER 2022-07-28 10:07 | Inpatient (IN) ==
[2022-07-28] MEDS ORDERED: Lactated Ringers 1000 ml BAG 1,000 ML IV ONE ×3 (10:28→14:49)
[2022-07-28] MEDS ORDERED: Ondansetron 4 mg VIAL 2 MG/ML 2 ml VIAL IV ONE (10:28)
[2022-07-28 11:14] LABS: Hematocrit 35 % (42-52); Hemoglobin 11.7 g/dL (14.0-18.0); Mean Corpuscular HGB Conc 34 g/dL (31-36); Mean Corpuscular Hemoglobin 32 pg (27-31); Mean Corpuscular Volume 94 fL (80-94); Mean Platelet Volume 9.3 fL (7.4-10.4); Platelet Count 113 10^3/uL (150-450); Red Blood Count 3.67 10^6 /uL (4.18-5.48); Red Cell Distribution Width 16 % (10-15); White Blood Count 13.1 10^3/uL (3.5-10.8)
[2022-07-28 11:44] LABS: Albumin 3.2 g/dL (3.2-5.2); Albumin/Globulin Ratio 1.5 (1-3); C Reactive Protein 23.69 mg/L (<8.01); Calcium 7.9 mg/dL (8.6-10.3); Creatinine, Serum 1.44 mg/dL (0.67-1.17); Globulin 2.1 g/dL (2-4); Potassium 3.6 mmol/L (3.5-5.0); Total Bilirubin 0.5 mg/dL (0.2-1.0); Total Protein 5.3 g/dL (6.4-8.9); eGFR CKD-EPI 47.3 (>60)
[2022-07-28 11:56] LABS: ABS Lymphocytes 1.8 10^3/ul (1.0-4.8); ABS Monocytes 0.7 10^3/ul (0-0.8); ABS Neutrophils 10.7 10^3/ul (1.5-7.7); Lymphocyte % 13.5 %
[2022-07-28] MEDS ORDERED: Iodixanol (CONTRAST) 320 MG/ML 100 ML SDV IV ONE (13:01)
[2022-07-28] MEDS ORDERED: Ondansetron 4 mg VIAL 2 MG/ML 2 ml VIAL IV PRN (14:09)
[2022-07-28] MEDS ORDERED: Fluticasone NASAL SPRAY 50MCG 16 gm SPRAY BTL INTRANASAL PRN (14:18)
[2022-07-28] MEDS ORDERED: Pantoprazole 20 mg TAB (NF) PO SCH (15:00)
[2022-07-28 15:44] LABS: High Sensitivity Troponin 1 Hr 88 pg/mL (<20)
[2022-07-28 17:13] LABS: Magnesium 1.5 mg/dL (1.9-2.7)
[2022-07-28] MEDS ORDERED: Magnesium Sulf 4 GM/100 ML IV 4,000 MG/100 ML BAG IVPB ONE (17:14)
[2022-07-28 17:35] LABS: Urine Appearance Clear; Urine Bilirubin Negative (Negative); Urine Blood Negative (Negative); Urine Color Yellow; Urine Glucose Negative (Negative); Urine Ketones Negative (Negative); Urine Nitrite Negative (Negative); Urine Protein 1+(30 mg/dL) (Negative); Urine Urobilinogen Negative (Negative)
[2022-07-28 17:49] LABS: High Sensitivity Troponin 3 Hr 114 pg/mL (<20)
[2022-07-28 17:50] LABS: Urine Bacteria Absent (Absent); Urine Red Blood Cell Absent (Absent); Urine White Blood Cell Absent (Absent)
[2022-07-28 17:52] LABS: Urine Specific Gravity > 1.060 (1.002-1.030)
[2022-07-29] MEDS ORDERED: NS 0.9% 1000 ml BAG 1,000 ML IV SCH (09:00)
[2022-07-29 09:53] LABS: ABS Lymphocytes 2.5 10^3/ul (1.0-4.8); ABS Monocytes 0.5 10^3/ul (0-0.8); Eosinophil % 0.2 %; Hematocrit 37 % (42-52); Hemoglobin 12.3 g/dL (14.0-18.0); Lymphocyte % 24.5 %; Mean Corpuscular HGB Conc 34 g/dL (31-36); Mean Corpuscular Hemoglobin 32 pg (27-31); Mean Corpuscular Volume 95 fL (80-94); Mean Platelet Volume 9.1 fL (7.4-10.4); Nucleated Red Blood Cells % 0.1; Platelet Count 116 10^3/uL (150-450); Red Blood Count 3.88 10^6 /uL (4.18-5.48); Red Cell Distribution Width 16 % (10-15)
[2022-07-29 10:30] LABS: Calcium 8.1 mg/dL (8.6-10.3); Creatinine, Serum 1.14 mg/dL (0.67-1.17); Potassium 3.5 mmol/L (3.5-5.0); eGFR CKD-EPI 62.6 (>60)
[2022-07-29] MEDS ORDERED: Calcium Carb (TUMS) 500 mg CHEW TAB PO PRN (23:40)
[2022-07-30 08:48] LABS: Albumin/Globulin Ratio 1.6 (1-3); Creatinine, Serum 0.92 mg/dL (0.67-1.17); Globulin 1.9 g/dL (2-4); Potassium 3.5 mmol/L (3.5-5.0); Total Bilirubin 0.5 mg/dL (0.2-1.0); Total Protein 4.9 g/dL (6.4-8.9)
[2022-07-30 13:29] VITALS: BP 110/69
== END 2022-07-30 17:23 | disposition home or self-care (01) | DRG 392 ==
LOC: ED 10:07 → EDHOLD 10:07 → MEDTELE 16:20 → MED 07-29 02:44
PROVIDERS: ADMIT Hospitalist; ATTEND Hospitalist

== ENCOUNTER 2022-11-29 07:57 | Inpatient (IN) ==
[2022-11-29 09:50] LABS: Hematocrit 36.7 % (38-53); Hemoglobin 12.3 g/dL (13.2-16.3); Mean Corpuscular Hemoglobin 31.3 pg (27-33); Mean Corpuscular Hgb Conc 33.5 g/dL (31-36); Mean Corpuscular Volume 93.2 fL (80-97); Mean Platelet Volume 8.6 fL (7.5-11.2); Platelet Count 174 10^3/uL (150-450); Red Blood Count 3.94 10^6/uL (4.06-5.63); White Blood Count 17.9 10^3/uL (3.6-10.2)
[2022-11-29 09:51] LABS: Urine Appearance Cloudy; Urine Bilirubin Negative (Negative); Urine Blood 2+ (Negative); Urine Color Yellow; Urine Glucose Negative (Negative); Urine Ketones Negative (Negative); Urine Nitrite Positive (Negative); Urine Protein Negative (Negative); Urine Specific Gravity 1.018 (1.002-1.030); Urine Urobilinogen Negative (Negative)
[2022-11-29 09:59] LABS: Activated Partial Thrombo Time 33.8 seconds (26.0-38.0); INR 1.77 (0.88-1.18); Urine Bacteria 1+ (Absent); Urine Red Blood Cell Trace(0-2/hpf) (Absent); Urine Squamous Epithelial Cell Present (Absent); Urine White Blood Cell 1+(6-10/hpf) (Absent)
[2022-11-29 10:06] LABS: Albumin 3.6 g/dL (3.2-5.2); Albumin/Globulin Ratio 1.2 (1-3); C Reactive Protein 128.46 mg/L (<8.01); Calcium 9.1 mg/dL (8.6-10.3); Creatinine, Serum 1.08 mg/dL (0.67-1.17); Globulin 2.9 g/dL (2-4); Potassium 3.8 mmol/L (3.5-5.0); Total Bilirubin 0.9 mg/dL (0.2-1.0); Total Protein 6.5 g/dL (6.4-8.9); eGFR CKD-EPI 66.8 (>60)
[2022-11-29 10:33] LABS: ABS Lymphocytes 5.2 10^3/uL (1.0-4.8); ABS Monocytes 1.4 10^3/uL (0.0-1.1); ABS Neutrophils 11.2 10^3/uL (1.5-7.6); ABS Nucleated RBC 0.01 10^3/ul; Eosinophil % 0.1 %; Lymphocyte % 29.2 %; Nucleated Red Blood Cells % 0.1 /100 WBC (0.0-0.4)
[2022-11-29 12:02] LABS: High Sensitivity Troponin 1 Hr 67 pg/mL (<20)
[2022-11-29] MEDS ORDERED: cefTRIAXone 1 gm/50 mL D5W 1 GM/50 ML BAG IV ONE (13:41)
[2022-11-30 06:11] LABS: Hematocrit 31.8 % (38-53); Hemoglobin 11.1 g/dL (13.2-16.3); Mean Corpuscular Hemoglobin 31.8 pg (27-33); Mean Corpuscular Hgb Conc 34.9 g/dL (31-36); Mean Corpuscular Volume 91.1 fL (80-97); Mean Platelet Volume 8.5 fL (7.5-11.2); Platelet Count 151 10^3/uL (150-450); Red Blood Count 3.49 10^6/uL (4.06-5.63); White Blood Count 19.1 10^3/uL (3.6-10.2)
[2022-11-30 06:12] LABS: ABS Basophils 0.1 10^3/uL (0.0-0.1); ABS Lymphocytes 5.4 10^3/uL (1.0-4.8); ABS Monocytes 1.6 10^3/uL (0.0-1.1); ABS Nucleated RBC 0.04 10^3/ul; Eosinophil % 0.1 %; Lymphocyte % 28.3 %; Nucleated Red Blood Cells % 0.2 /100 WBC (0.0-0.4)
[2022-11-30 06:31] LABS: Calcium 8.6 mg/dL (8.6-10.3); Creatinine, Serum 1.21 mg/dL (0.67-1.17); Magnesium 1.7 mg/dL (1.9-2.7); Potassium 3.8 mmol/L (3.5-5.0); eGFR CKD-EPI 58.3 (>60)
[2022-11-30] MEDS: cefTRIAXone 1 gm/50 mL D5W 1 GM/50 ML BAG IV SCH (10:13)
[2022-11-30 12:58] LABS: PSA Screen Ultra Sensitive 0.425 ng/mL (0-4.000)
[2022-11-30 15:59] LABS: Calcium 8.9 mg/dL (8.6-10.3); Creatinine, Serum 1.45 mg/dL (0.67-1.17); Potassium 3.8 mmol/L (3.5-5.0); eGFR CKD-EPI 46.9 (>60)
[2022-11-30] MEDS ORDERED: Magnesium Sulfate 2 gm BAG 2 GM/50 ML BAG IVPB ONE (16:32)
[2022-11-30] MEDS ORDERED: Enoxaparin 100 MG/ML SYR SUBCUT ONE (21:00)
[2022-12-01 06:27] LABS: Hematocrit 32.3 % (38-53); Hemoglobin 11.4 g/dL (13.2-16.3); Mean Corpuscular Hemoglobin 32.1 pg (27-33); Mean Corpuscular Hgb Conc 35.2 g/dL (31-36); Mean Corpuscular Volume 91.1 fL (80-97); Mean Platelet Volume 8.9 fL (7.5-11.2); Platelet Count 161 10^3/uL (150-450); Red Blood Count 3.54 10^6/uL (4.06-5.63); Red Cell Distribution Width 15.1 % (12-17); White Blood Count 17.2 10^3/uL (3.6-10.2)
[2022-12-01 06:49] LABS: Calcium 8.7 mg/dL (8.6-10.3); Creatinine, Serum 1.2 mg/dL (0.67-1.17); Magnesium 2.1 mg/dL (1.9-2.7); eGFR CKD-EPI 58.9 (>60)
[2022-12-01 06:57] LABS: ABS Eosinophils 0.1 10^3/uL (0.0-0.5); ABS Lymphocytes 5.4 10^3/uL (1.0-4.8); ABS Monocytes 1.1 10^3/uL (0.0-1.1); ABS Neutrophils 10.6 10^3/uL (1.5-7.6); ABS Nucleated RBC 0.05 10^3/ul; Eosinophil % 0.5 %; Lymphocyte % 31.5 %; Nucleated Red Blood Cells % 0.3 /100 WBC (0.0-0.4)
[2022-12-01] MEDS: cefTRIAXone 1 gm/50 mL D5W 1 GM/50 ML BAG IV SCH (08:26)
[2022-12-01 09:33] LABS: Osmolality Serum 279 mOsm/kg (275-295)
[2022-12-01] MEDS ORDERED: Morphine 2 MG/ML SYRINGE IV ONE (14:36)
[2022-12-01 16:52] LABS: Urine Osmo 378 mOsm/kg (150-1150)
[2022-12-01] MEDS: Enoxaparin 100 MG/ML SYR SUBCUT SCH (20:13)
[2022-12-02 06:19] LABS: Hematocrit 33.8 % (38-53); Hemoglobin 11.8 g/dL (13.2-16.3); Mean Corpuscular Volume 91.4 fL (80-97); Mean Platelet Volume 9.3 fL (7.5-11.2); Platelet Count 183 10^3/uL (150-450); Red Blood Count 3.69 10^6/uL (4.06-5.63); White Blood Count 14.7 10^3/uL (3.6-10.2)
[2022-12-02 06:29] LABS: Creatinine, Serum 1.01 mg/dL (0.67-1.17); Magnesium 2.1 mg/dL (1.9-2.7); Potassium 4.6 mmol/L (3.5-5.0); eGFR CKD-EPI 72.4 (>60)
[2022-12-02] MEDS: cefTRIAXone 1 gm/50 mL D5W 1 GM/50 ML BAG IV SCH (08:12)
[2022-12-02] MEDS: Enoxaparin 100 MG/ML SYR SUBCUT SCH (08:18)
[2022-12-02] MEDS ORDERED: Morphine 2 MG/ML SYRINGE IV PRN (09:46)
[2022-12-02] MEDS ORDERED: Magnesium Hydroxide LIQ 30 ML UDC PO PRN (09:49)
[2022-12-02] MEDS ORDERED: Dextrose 50% Syringe 50 ml 25 GM/50 ML SYRINGE IV PUSH PRN (09:56)
[2022-12-02] MEDS ORDERED: Cyanocobalamin INJ 1,000 MCG/ML VIAL 1 ML VIAL IM ONE (10:00)
[2022-12-02] MEDS ORDERED: Iodixanol (CONTRAST) 320 MG/ML 100 ML SDV IV ONE (11:19)
[2022-12-02 12:27] LABS: Ferritin 856.5 ng/mL (24-336)
[2022-12-02 12:32] LABS: Folate 15.33 ng/mL (5.90-24.80)
[2022-12-02] MEDS: Cyanocobalamin INJ 1,000 MCG/ML VIAL 1 ML VIAL IM SCH (16:12)
[2022-12-02] MEDS: Polyethylene Glycol 3350 17 GM PACKET PO SCH (16:52)
[2022-12-02] MEDS: Magnesium Hydroxide LIQ 30 ML UDC PO SCH ×2 (16:52→20:28)
[2022-12-02] MEDS: PTO:Timolol 0.5% OPTH.SOL BTL BOTH EYES SCH (18:01)
[2022-12-03 05:58] LABS: Hematocrit 33.1 % (38-53); Hemoglobin 11.5 g/dL (13.2-16.3); Mean Corpuscular Hemoglobin 31.9 pg (27-33); Mean Corpuscular Hgb Conc 34.8 g/dL (31-36); Mean Corpuscular Volume 91.6 fL (80-97); Mean Platelet Volume 8.8 fL (7.5-11.2); Platelet Count 207 10^3/uL (150-450); Red Blood Count 3.62 10^6/uL (4.06-5.63); White Blood Count 18.3 10^3/uL (3.6-10.2)
[2022-12-03 06:14] LABS: Magnesium 2.6 mg/dL (1.9-2.7)
[2022-12-03 06:23] LABS: Hematocrit 33.4 % (38-53); Hemoglobin 11.4 g/dL (13.2-16.3); Mean Corpuscular Hgb Conc 34.2 g/dL (31-36); Mean Corpuscular Volume 93.3 fL (80-97); Mean Platelet Volume 8.9 fL (7.5-11.2); Platelet Count 208 10^3/uL (150-450); Red Blood Count 3.58 10^6/uL (4.06-5.63); Red Cell Distribution Width 15.1 % (12-17); White Blood Count 18.6 10^3/uL (3.6-10.2)
[2022-12-03 07:19] LABS: ABS Lymphocytes 5.5 10^3/uL (1.0-4.8); ABS Monocytes 1.1 10^3/uL (0.0-1.1); ABS Nucleated RBC 0.01 10^3/ul; Lymphocyte % 29.3 %; Nucleated Red Blood Cells % 0.1 /100 WBC (0.0-0.4)
[2022-12-03 08:02] LABS: C Reactive Protein 111.63 mg/L (<8.01); Calcium 8.9 mg/dL (8.6-10.3); Creatinine, Serum 0.96 mg/dL (0.67-1.17)
[2022-12-03] MEDS: cefTRIAXone 1 gm/50 mL D5W 1 GM/50 ML BAG IV SCH (08:39)
[2022-12-03] MEDS: Cyanocobalamin INJ 1,000 MCG/ML VIAL 1 ML VIAL IM SCH (08:46)
[2022-12-03] MEDS: Magnesium Hydroxide LIQ 30 ML UDC PO SCH ×2 (08:46→22:18)
[2022-12-03] MEDS: Polyethylene Glycol 3350 17 GM PACKET PO SCH (08:47)
[2022-12-03] MEDS: PTO:Timolol 0.5% OPTH.SOL BTL BOTH EYES SCH (08:50)
[2022-12-04 06:41] LABS: Hemoglobin 11.5 g/dL (13.2-16.3); Mean Corpuscular Hemoglobin 32.4 pg (27-33); Mean Corpuscular Hgb Conc 34.9 g/dL (31-36); Mean Corpuscular Volume 92.8 fL (80-97); Mean Platelet Volume 8.7 fL (7.5-11.2); Platelet Count 214 10^3/uL (150-450); Red Blood Count 3.56 10^6/uL (4.06-5.63); Red Cell Distribution Width 14.9 % (12-17); White Blood Count 17.2 10^3/uL (3.6-10.2)
[2022-12-04 06:44] LABS: ABS Lymphocytes 6.4 10^3/uL (1.0-4.8); ABS Monocytes 1.1 10^3/uL (0.0-1.1); ABS Neutrophils 9.6 10^3/uL (1.5-7.6); ABS Nucleated RBC 0.01 10^3/ul; Eosinophil % 0.1 %; Lymphocyte % 37.5 %; Nucleated Red Blood Cells % 0.1 /100 WBC (0.0-0.4)
[2022-12-04 06:50] LABS: Calcium 9.1 mg/dL (8.6-10.3); Creatinine, Serum 1.02 mg/dL (0.67-1.17); Magnesium 2.4 mg/dL (1.9-2.7); eGFR CKD-EPI 71.6 (>60)
[2022-12-04] MEDS: PTO:Timolol 0.5% OPTH.SOL BTL BOTH EYES SCH (09:04)
[2022-12-04] MEDS: Polyethylene Glycol 3350 17 GM PACKET PO SCH (09:05)
[2022-12-04] MEDS: Magnesium Hydroxide LIQ 30 ML UDC PO SCH (09:05)
[2022-12-05 06:15] LABS: Hematocrit 32.8 % (38-53); Hemoglobin 11.4 g/dL (13.2-16.3); Mean Corpuscular Hemoglobin 31.9 pg (27-33); Mean Corpuscular Hgb Conc 34.9 g/dL (31-36); Mean Corpuscular Volume 91.3 fL (80-97); Mean Platelet Volume 8.4 fL (7.5-11.2); Platelet Count 222 10^3/uL (150-450); Red Blood Count 3.59 10^6/uL (4.06-5.63); Red Cell Distribution Width 15.2 % (12-17); White Blood Count 15.6 10^3/uL (3.6-10.2)
[2022-12-05 06:33] LABS: Creatinine, Serum 0.94 mg/dL (0.67-1.17); Magnesium 2.1 mg/dL (1.9-2.7); Potassium 4.6 mmol/L (3.5-5.0); eGFR CKD-EPI 78.9 (>60)
[2022-12-05 06:48] LABS: ABS Lymphocytes 5.6 10^3/uL (1.0-4.8); ABS Monocytes 1.2 10^3/uL (0.0-1.1); ABS Neutrophils 8.8 10^3/uL (1.5-7.6); ABS Nucleated RBC 0.08 10^3/ul; Eosinophil % 0.1 %; Lymphocyte % 35.9 %; Nucleated Red Blood Cells % 0.5 /100 WBC (0.0-0.4)
[2022-12-05] MEDS: Polyethylene Glycol 3350 17 GM PACKET PO SCH (08:16)
[2022-12-05] MEDS: PTO:Timolol 0.5% OPTH.SOL BTL BOTH EYES SCH (08:16)
[2022-12-05] MEDS: Cyanocobalamin INJ 1,000 MCG/ML VIAL 1 ML VIAL IM SCH (08:17)
[2022-12-05] MEDS ORDERED: CMCS: Alfuzosin ER 10 mg TAB.ER (NF) 10 MG TAB.ER PO SCH (21:00)
[2022-12-06 05:26] LABS: Hematocrit 33.5 % (38-53); Hemoglobin 11.4 g/dL (13.2-16.3); Mean Corpuscular Hemoglobin 31.6 pg (27-33); Mean Corpuscular Volume 92.9 fL (80-97); Mean Platelet Volume 8.4 fL (7.5-11.2); Platelet Count 240 10^3/uL (150-450); Red Cell Distribution Width 14.7 % (12-17); White Blood Count 14.1 10^3/uL (3.6-10.2)
[2022-12-06 05:45] LABS: Calcium 8.8 mg/dL (8.6-10.3); Potassium 4.6 mmol/L (3.5-5.0); eGFR CKD-EPI 73.3 (>60)
[2022-12-06] MEDS: Cyanocobalamin INJ 1,000 MCG/ML VIAL 1 ML VIAL IM SCH (08:21)
[2022-12-06 08:25] LABS: Rapid COVID-19 Molecular Undetected (Undetected)
[2022-12-06] MEDS: PTO:Timolol 0.5% OPTH.SOL BTL BOTH EYES SCH (08:27)
[2022-12-06] MEDS: Polyethylene Glycol 3350 17 GM PACKET PO SCH (08:28)
[2022-12-06 08:53] LABS: RBC Morphology Normal (Normal)
[2022-12-06 08:54] LABS: ABS Lymphocytes 5.8 10^3/uL (1.0-4.8); ABS Monocytes 0.8 10^3/uL (0.0-1.1); ABS Neutrophils 7.4 10^3/uL (1.5-7.6); ABS Nucleated RBC 0.02 10^3/ul; Eosinophil % 0.3 %; Lymphocyte % 41.3 %; Nucleated Red Blood Cells % 0.1 /100 WBC (0.0-0.4)
[2022-12-07] MEDS: Polyethylene Glycol 3350 17 GM PACKET PO SCH (08:03)
[2022-12-07] MEDS: PTO:Timolol 0.5% OPTH.SOL BTL BOTH EYES SCH (08:04)
[2022-12-08] MEDS: Polyethylene Glycol 3350 17 GM PACKET PO SCH (08:09)
[2022-12-08] MEDS: PTO:Timolol 0.5% OPTH.SOL BTL BOTH EYES SCH (08:49)
[2022-12-08] MEDS ORDERED: cefTRIAXone 1 gm/50 mL D5W 1 GM/50 ML BAG IV SCH (10:45)
[2022-12-08] MEDS ORDERED: Lactated Ringers 1000 ml BAG 1,000 ML IV SCH (11:00)
[2022-12-08 11:05] LABS: Hematocrit 34.3 % (38-53); Hemoglobin 11.6 g/dL (13.2-16.3); Mean Corpuscular Hemoglobin 31.7 pg (27-33); Mean Corpuscular Hgb Conc 33.8 g/dL (31-36); Mean Corpuscular Volume 93.7 fL (80-97); Mean Platelet Volume 8.2 fL (7.5-11.2); Platelet Count 278 10^3/uL (150-450); Red Blood Count 3.66 10^6/uL (4.06-5.63); Red Cell Distribution Width 14.9 % (12-17); White Blood Count 17.1 10^3/uL (3.6-10.2)
[2022-12-08 11:13] LABS: Calcium 8.9 mg/dL (8.6-10.3); Creatinine, Serum 1.08 mg/dL (0.67-1.17); Magnesium 1.9 mg/dL (1.9-2.7); Potassium 4.7 mmol/L (3.5-5.0); eGFR CKD-EPI 66.8 (>60)
[2022-12-08 11:30] LABS: ABS Eosinophils 0.2 10^3/uL (0.0-0.5); ABS Lymphocytes 6.6 10^3/uL (1.0-4.8); ABS Monocytes 0.8 10^3/uL (0.0-1.1); ABS Neutrophils 9.5 10^3/uL (1.5-7.6); ABS Nucleated RBC 0.09 10^3/ul; Eosinophil % 1.1 %; Lymphocyte % 38.5 %; Nucleated Red Blood Cells % 0.5 /100 WBC (0.0-0.4)
[2022-12-08 11:46] LABS: RBC Morphology Normal (Normal)
[2022-12-08 12:19] LABS: Urine Appearance Cloudy; Urine Bilirubin Negative (Negative); Urine Blood Negative (Negative); Urine Color Yellow; Urine Glucose Negative (Negative); Urine Ketones Negative (Negative); Urine Nitrite Negative (Negative); Urine Protein Negative (Negative); Urine Specific Gravity 1.018 (1.002-1.030); Urine Urobilinogen Negative (Negative)
[2022-12-08] MEDS ORDERED: Hydrocortisone INJ 100 MG/2ML 2 ML VIAL IV SCH ×2 (16:00)
[2022-12-09] MEDS: PTO:Timolol 0.5% OPTH.SOL BTL BOTH EYES SCH (08:19)
[2022-12-09] MEDS: Polyethylene Glycol 3350 17 GM PACKET PO SCH (08:19)
[2022-12-09] MEDS ORDERED: Lidocaine PATCH 4% TOPICAL PRN (10:22)
[2022-12-09] MEDS: CMC:Mirabegron 25 mg ER TAB (NF) PO SCH (12:00)
[2022-12-10] MEDS: CMC:Mirabegron 25 mg ER TAB (NF) PO SCH (08:47)
[2022-12-10] MEDS: Polyethylene Glycol 3350 17 GM PACKET PO SCH (08:48)
[2022-12-10] MEDS: PTO:Timolol 0.5% OPTH.SOL BTL BOTH EYES SCH (08:49)
[2022-12-10 11:09] VITALS: BP 112/48
[2022-12-10 12:18] LABS: Rapid COVID-19 Molecular Undetected (Undetected)
== END 2022-12-10 13:13 | DRG 557 ==
LOC: EDHOLD 07:57 → ED 07:57 → MEDTELE 17:47 → SUATTDRO 11-30 07:00
PROVIDERS: ADMIT Internal Medicine; ATTEND Internal Medicine

== ENCOUNTER 2023-04-19 18:08 | Inpatient (IN) ==
[2023-04-19 20:12] LABS: ABS Monocytes 0.5 10^3/uL (0.0-1.1); ABS Neutrophils 6.7 10^3/uL (1.5-7.6); ABS Nucleated RBC 0.01 10^3/ul; Eosinophil % 0.1 %; Hematocrit 33.4 % (38-53); Hemoglobin 11.3 g/dL (13.2-16.3); Lymphocyte % 21.5 %; Mean Corpuscular Hemoglobin 31.3 pg (27-33); Mean Corpuscular Hgb Conc 33.9 g/dL (31-36); Mean Corpuscular Volume 92.5 fL (80-97); Mean Platelet Volume 8.1 fL (7.5-11.2); Nucleated Red Blood Cells % 0.1 %/100WBC (0.0-0.8); Platelet Count 223 10^3/uL (150-450); Red Blood Count 3.62 10^6/uL (4.06-5.63); Red Cell Distribution Width 17.4 % (12-17); White Blood Count 9.2 10^3/uL (3.6-10.2)
[2023-04-19 20:29] LABS: Albumin 3.1 g/dL (3.2-5.2); Albumin/Globulin Ratio 1.1 (1-3); C Reactive Protein 121.66 mg/L (<8.01); Calcium 9.1 mg/dL (8.6-10.3); Creatinine, Serum 0.86 mg/dL (0.67-1.17); Globulin 2.8 g/dL (2-4); Potassium 3.3 mmol/L (3.5-5.0); Total Bilirubin 1.2 mg/dL (0.2-1.0); Total Protein 5.9 g/dL (6.4-8.9); eGFR CKD-EPI 83.8 (>60)
[2023-04-19] MEDS ORDERED: Iodixanol (CONTRAST) 320 MG/ML 100 ML SDV IV ONE (21:03)
[2023-04-19 21:26] LABS: Urine Appearance Cloudy; Urine Bilirubin Negative (Negative); Urine Blood Negative (Negative); Urine Color Amber; Urine Glucose Negative (Negative); Urine Ketones Negative (Negative); Urine Nitrite Positive (Negative); Urine Protein 1+(30 mg/dL) (Negative); Urine Specific Gravity 1.021 (1.002-1.030); Urine Urobilinogen Negative (Negative)
[2023-04-19 22:25] LABS: Urine Bacteria 2+ (Absent); Urine Red Blood Cell Absent (Absent); Urine Squamous Epithelial Cell Present (Absent); Urine White Blood Cell 2+(11-20/hpf) (Absent)
[2023-04-20] MEDS ORDERED: cefTRIAXone 1 gm/50 mL NS BAG 1 GM/50 ML BAG IV ONE (01:21)
[2023-04-20] MEDS ORDERED: NS 0.9% 1000 ml BAG 1,000 ML IV ONE (01:21)
[2023-04-20] MEDS ORDERED: Acetaminophen IV 1 GM/100ML 1,000 MG/100 ML BAG IV ONE (02:19)
[2023-04-20] MEDS ORDERED: cefTRIAXone 1 gm/50 mL D5W 1 GM/50 ML BAG IV ONE (03:25)
[2023-04-20 03:41] LABS: Magnesium 1.6 mg/dL (1.9-2.7)
[2023-04-20] MEDS: KCL 20 MEQ/100 ML IVPREMIX 20 MEQ/100 ML BAG IV SCH ×2 (05:11→14:03)
[2023-04-20 07:46] LABS: ABS Lymphocytes 2.3 10^3/uL (1.0-4.8); ABS Monocytes 1.1 10^3/uL (0.0-1.1); ABS Neutrophils 6.8 10^3/uL (1.5-7.6); Eosinophil % 0.3 %; Hematocrit 29.4 % (38-53); Lymphocyte % 22.3 %; Mean Corpuscular Hemoglobin 31.7 pg (27-33); Mean Corpuscular Hgb Conc 34.2 g/dL (31-36); Mean Corpuscular Volume 92.8 fL (80-97); Mean Platelet Volume 8.2 fL (7.5-11.2); Platelet Count 190 10^3/uL (150-450); Red Blood Count 3.17 10^6/uL (4.06-5.63); Red Cell Distribution Width 17.9 % (12-17); White Blood Count 10.1 10^3/uL (3.6-10.2)
[2023-04-20 08:06] LABS: Anion Gap 9 mmol/L (2-16); Blood Urea Nitrogen 20 mg/dL (6-24); CO2 Carbon Dioxide 26 mmol/L (22-32); Calcium 8.1 mg/dL (8.6-10.3); Chloride 102 mmol/L (101-111); Creatinine, Serum 0.83 mg/dL (0.67-1.17); Glucose 114 mg/dL (70-100); Potassium 3.6 mmol/L (3.5-5.0); Sodium 137 mmol/L (135-145); eGFR CKD-EPI 84.7 (>60)
[2023-04-20] MEDS ORDERED: Vancomycin 1,000 MG in NS 0.9% 250 ml 250 ML IVPB ONE (08:09)
[2023-04-20] MEDS ORDERED: Piperacillin/Tazobac 3.375 BAG 3.375 GM/100 ML BAG IV ONE (08:30)
[2023-04-20 08:38] LABS: % Iron Saturation 11 % (15-55); .Transferrin 131 mg/dL (203-362); Iron < 20 ug/dL (50-212); Total Iron Binding Capacity 183 mcg/dL (250-450); Unsaturated Iron Binding 163 ug/dL
[2023-04-20 08:58] LABS: Ferritin 239.9 ng/mL (24-336)
[2023-04-20] MEDS ORDERED: Vancomycin 1,750 MG in NS 0.9% 500 ml BAG 500 ML IVPB ONE (09:00)
[2023-04-20] MEDS ORDERED: Vancomycin per Pharmacy 1 EA NOTE FOLLOW UP SCH (09:00)
[2023-04-20] MEDS ORDERED: Pneumococcal Vac 23-Polyvalent IM ONE (09:00)
[2023-04-20] MEDS ORDERED: Zosyn per Pharmacy NOTE FOLLOW UP SCH (09:00)
[2023-04-20] MEDS: Timolol 0.5% OPTH.SOL BTL BOTH EYES SCH (09:33)
[2023-04-20] MEDS: CMCS: Mirabegron 25 mg ER TAB (NF) PO SCH (09:34)
[2023-04-20] MEDS: IPRATROPIUM BR 0.03% BOTH NARES SCH ×2 (09:40→21:27)
[2023-04-20] MEDS ORDERED: Magnesium Sulfate 2 gm BAG 2 GM/50 ML BAG IVPB ONE (14:02)
[2023-04-20] MEDS ORDERED: KCL 20 MEQ/100 ML IVPREMIX 20 MEQ/100 ML BAG ONE (14:02)
[2023-04-20 14:58] LABS: Cholesterol 126 mg/dL; LDL Cholesterol 73 mg/dL; Triglycerides 91 mg/dL
[2023-04-20] MEDS ORDERED: Magnesium Sulfate IV 1GM/100ML 1 GM/100 ML BAG IV ONE (16:02)
[2023-04-20] MEDS: ZOSYN 3.375 GM Q8H per EXTENDED INFUSION IV SCH ×2 (16:10→21:25)
[2023-04-20] MEDS ORDERED: Ondansetron 4 mg VIAL 2 MG/ML 2 ml VIAL IV PRN (17:11)
[2023-04-20] MEDS: Acetaminophen IV 1 GM/100ML 1,000 MG/100 ML BAG IV PRN (21:28)
[2023-04-21] MEDS ORDERED: cefTRIAXone 2 gm/50 mL D5W 2 GM/50 ML BAG IV SCH (02:00)
[2023-04-21] MEDS: ZOSYN 3.375 GM Q8H per EXTENDED INFUSION IV SCH ×3 (04:20→20:26)
[2023-04-21 06:55] LABS: ABS Eosinophils 0.1 10^3/uL (0.0-0.5); ABS Lymphocytes 2.7 10^3/uL (1.0-4.8); ABS Monocytes 1.1 10^3/uL (0.0-1.1); ABS Neutrophils 6.2 10^3/uL (1.5-7.6); ABS Nucleated RBC 0.01 10^3/ul; Eosinophil % 0.5 %; Hematocrit 27.4 % (38-53); Hemoglobin 9.4 g/dL (13.2-16.3); Lymphocyte % 26.9 %; Mean Corpuscular Hemoglobin 31.7 pg (27-33); Mean Corpuscular Hgb Conc 34.4 g/dL (31-36); Mean Corpuscular Volume 92.2 fL (80-97); Mean Platelet Volume 8.5 fL (7.5-11.2); Nucleated Red Blood Cells % 0.1 %/100WBC (0.0-0.8); Platelet Count 198 10^3/uL (150-450); Red Blood Count 2.97 10^6/uL (4.06-5.63); Red Cell Distribution Width 17.1 % (12-17)
[2023-04-21 07:16] LABS: Calcium 8.4 mg/dL (8.6-10.3); Creatinine, Serum 0.78 mg/dL (0.67-1.17); Potassium 3.3 mmol/L (3.5-5.0); eGFR CKD-EPI 86.3 (>60)
[2023-04-21] MEDS ORDERED: Potassium Chlor 20 meq TAB.ER PO ONE (07:17)
[2023-04-21] MEDS: Timolol 0.5% OPTH.SOL BTL BOTH EYES SCH (09:14)
[2023-04-21] MEDS: CMCS: Mirabegron 25 mg ER TAB (NF) PO SCH (09:14)
[2023-04-21] MEDS: IPRATROPIUM BR 0.03% BOTH NARES SCH ×2 (09:16→20:28)
[2023-04-22] MEDS: ZOSYN 3.375 GM Q8H per EXTENDED INFUSION IV SCH ×2 (05:04→12:54)
[2023-04-22 05:56] LABS: ABS Eosinophils 0.1 10^3/uL (0.0-0.5); ABS Lymphocytes 2.2 10^3/uL (1.0-4.8); ABS Neutrophils 4.8 10^3/uL (1.5-7.6); ABS Nucleated RBC 0.01 10^3/ul; Eosinophil % 1.2 %; Hematocrit 27.7 % (38-53); Hemoglobin 9.7 g/dL (13.2-16.3); Lymphocyte % 27.2 %; Mean Corpuscular Volume 91.5 fL (80-97); Mean Platelet Volume 8.4 fL (7.5-11.2); Nucleated Red Blood Cells % 0.1 %/100WBC (0.0-0.8); Platelet Count 202 10^3/uL (150-450); Red Blood Count 3.03 10^6/uL (4.06-5.63)
[2023-04-22 06:14] LABS: C Reactive Protein 102.23 mg/L (<8.01); Calcium 8.3 mg/dL (8.6-10.3); Creatinine, Serum 0.74 mg/dL (0.67-1.17); Potassium 3.6 mmol/L (3.5-5.0); eGFR CKD-EPI 87.7 (>60)
[2023-04-22] MEDS: Timolol 0.5% OPTH.SOL BTL BOTH EYES SCH (08:56)
[2023-04-22] MEDS: CMCS: Mirabegron 25 mg ER TAB (NF) PO SCH (08:56)
[2023-04-22] MEDS: IPRATROPIUM BR 0.03% BOTH NARES SCH ×2 (08:56→21:49)
[2023-04-22] MEDS: Enoxaparin 100 MG/ML SYR SUBCUT SCH (21:47)
[2023-04-22] MEDS: cefTRIAXone 2 gm/50 mL D5W 2 GM/50 ML BAG IV SCH (21:53)
[2023-04-23] MEDS: IPRATROPIUM BR 0.03% BOTH NARES SCH ×2 (08:38→22:16)
[2023-04-23] MEDS: Timolol 0.5% OPTH.SOL BTL BOTH EYES SCH (08:38)
[2023-04-23] MEDS: CMCS: Mirabegron 25 mg ER TAB (NF) PO SCH (08:38)
[2023-04-23] MEDS: Enoxaparin 100 MG/ML SYR SUBCUT SCH (08:39)
[2023-04-23] MEDS: cefTRIAXone 2 gm/50 mL D5W 2 GM/50 ML BAG IV SCH (22:12)
[2023-04-24 06:14] LABS: Hematocrit 28.8 % (38-53); Hemoglobin 9.8 g/dL (13.2-16.3); Mean Corpuscular Hemoglobin 31.6 pg (27-33); Mean Corpuscular Volume 92.7 fL (80-97); Mean Platelet Volume 8.2 fL (7.5-11.2); Platelet Count 259 10^3/uL (150-450); Red Cell Distribution Width 17.1 % (12-17)
[2023-04-24 06:23] LABS: INR 1.22 (0.83-1.13)
[2023-04-24 06:38] LABS: Albumin 2.8 g/dL (3.2-5.2); Calcium 8.8 mg/dL (8.6-10.3); Creatinine, Serum 0.76 mg/dL (0.67-1.17); Globulin 2.8 g/dL (2-4); Potassium 3.6 mmol/L (3.5-5.0); Total Bilirubin 0.3 mg/dL (0.2-1.0); Total Protein 5.6 g/dL (6.4-8.9)
[2023-04-24 06:39] LABS: ABS Eosinophils 0.1 10^3/uL (0.0-0.5); ABS Lymphocytes 2.5 10^3/uL (1.0-4.8); ABS Monocytes 0.7 10^3/uL (0.0-1.1); ABS Neutrophils 3.6 10^3/uL (1.5-7.6); Eosinophil % 1.2 %; RBC Morphology Normal (Normal)
[2023-04-24] MEDS: CMCS: Mirabegron 25 mg ER TAB (NF) PO SCH (11:03)
[2023-04-24] MEDS: Timolol 0.5% OPTH.SOL BTL BOTH EYES SCH (11:04)
[2023-04-24] MEDS: IPRATROPIUM BR 0.03% BOTH NARES SCH ×2 (11:04→21:34)
[2023-04-24] MEDS ORDERED: fentaNYL 100 mcg/2 ml 50 MCG/ML VIAL ONE (14:24)
[2023-04-24] MEDS: Acetaminophen IV 1 GM/100ML 1,000 MG/100 ML BAG IV PRN (17:34)
[2023-04-24] MEDS: cefTRIAXone 2 gm/50 mL D5W 2 GM/50 ML BAG IV SCH (21:32)
[2023-04-25] MEDS: Acetaminophen IV 1 GM/100ML 1,000 MG/100 ML BAG IV PRN ×2 (00:17→22:39)
[2023-04-25 06:00] LABS: ABS Eosinophils 0.1 10^3/uL (0.0-0.5); ABS Lymphocytes 2.1 10^3/uL (1.0-4.8); ABS Monocytes 0.7 10^3/uL (0.0-1.1); ABS Neutrophils 7.4 10^3/uL (1.5-7.6); ABS Nucleated RBC 0.02 10^3/ul; Eosinophil % 0.6 %; Hematocrit 28.9 % (38-53); Lymphocyte % 20.3 %; Mean Corpuscular Hemoglobin 31.7 pg (27-33); Mean Corpuscular Hgb Conc 34.7 g/dL (31-36); Mean Corpuscular Volume 91.3 fL (80-97); Mean Platelet Volume 8.5 fL (7.5-11.2); Nucleated Red Blood Cells % 0.2 %/100WBC (0.0-0.8); Platelet Count 277 10^3/uL (150-450); Red Blood Count 3.16 10^6/uL (4.06-5.63); Red Cell Distribution Width 17.2 % (12-17); White Blood Count 10.2 10^3/uL (3.6-10.2)
[2023-04-25 06:21] LABS: Calcium 8.8 mg/dL (8.6-10.3); Creatinine, Serum 0.76 mg/dL (0.67-1.17); Potassium 3.6 mmol/L (3.5-5.0)
[2023-04-25] MEDS: IPRATROPIUM BR 0.03% BOTH NARES SCH ×2 (09:09→21:30)
[2023-04-25] MEDS: CMCS: Mirabegron 25 mg ER TAB (NF) PO SCH (09:10)
[2023-04-25] MEDS: Timolol 0.5% OPTH.SOL BTL BOTH EYES SCH (09:11)
[2023-04-25] MEDS: cefTRIAXone 2 gm/50 mL D5W 2 GM/50 ML BAG IV SCH (21:29)
[2023-04-26] MEDS: IPRATROPIUM BR 0.03% BOTH NARES SCH (08:22)
[2023-04-26] MEDS: Timolol 0.5% OPTH.SOL BTL BOTH EYES SCH (08:23)
[2023-04-26] MEDS: CMCS: Mirabegron 25 mg ER TAB (NF) PO SCH (08:23)
[2023-04-26 14:20] VITALS: BP 135/74
== END 2023-04-26 17:06 | disposition home or self-care (01) | DRG 690 ==
LOC: ED 18:08 → SUATTDRO 04-20 01:26 → SSU 04-20 01:26
PROVIDERS: ADMIT Student in an Organized Health Care Education/Training Program; ATTEND Student in an Organized Health Care Education/Training Program

== ENCOUNTER 2023-06-18 20:57 | Inpatient (IN) ==
[2023-06-18] MEDS: Acetaminophen IV 1 GM/100ML 1,000 MG/100 ML BAG IV ONE (21:47)
[2023-06-18 22:03] LABS: ABS Lymphocytes 2.3 10^3/uL (1.0-4.8); ABS Neutrophils 6.4 10^3/uL (1.5-7.6); ABS Nucleated RBC 0.02 10^3/ul; Eosinophil % 0.2 %; Hematocrit 38.4 % (38-53); Hemoglobin 13.4 g/dL (13.2-16.3); Lymphocyte % 23.8 %; Mean Corpuscular Hemoglobin 31.9 pg (27-33); Mean Corpuscular Hgb Conc 34.8 g/dL (31-36); Mean Corpuscular Volume 91.6 fL (80-97); Mean Platelet Volume 8.9 fL (7.5-11.2); Nucleated Red Blood Cells % 0.2 %/100WBC (0.0-0.8); Platelet Count 191 10^3/uL (150-450); Red Blood Count 4.19 10^6/uL (4.06-5.63); Red Cell Distribution Width 16.8 % (12-17); White Blood Count 9.8 10^3/uL (3.6-10.2)
[2023-06-18 22:23] LABS: ALT 8 U/L (7-52); AST 13 U/L (13-39); Albumin 3.3 g/dL (3.2-5.2); Albumin/Globulin Ratio 1.2 (1-3); Alkaline Phosphatase 34 U/L (35-149); Anion Gap 8 mmol/L (2-16); Blood Urea Nitrogen 21 mg/dL (6-24); C Reactive Protein 65.31 mg/L (<8.01); CO2 Carbon Dioxide 25 mmol/L (22-32); Calcium 9.6 mg/dL (8.6-10.3); Chloride 101 mmol/L (101-111); Creatinine, Serum 0.82 mg/dL (0.67-1.17); Globulin 2.7 g/dL (2-4); Glucose 120 mg/dL (70-100); Lipase < 10 U/L (11.0-82.0); Magnesium 1.7 mg/dL (1.9-2.7); Potassium 3.1 mmol/L (3.5-5.0); Sodium 134 mmol/L (135-145); Total Bilirubin 0.6 mg/dL (0.2-1.0)
[2023-06-18 23:06] LABS: Urine Appearance Clear; Urine Bilirubin Negative (Negative); Urine Blood Negative (Negative); Urine Color Yellow; Urine Glucose Negative (Negative); Urine Ketones Negative (Negative); Urine Nitrite Negative (Negative); Urine Protein 1+(30 mg/dL) (Negative); Urine Specific Gravity 1.023 (1.002-1.030); Urine Urobilinogen Negative (Negative)
[2023-06-18 23:24] LABS: Urine Bacteria Absent (Absent); Urine Red Blood Cell Absent (Absent); Urine Squamous Epithelial Cell Present (Absent); Urine White Blood Cell Trace(0-5/hpf) (Absent)
[2023-06-19] MEDS: Magnesium Sulfate 2 gm BAG 2 GM/50 ML BAG IVPB ONE (00:18)
[2023-06-19] MEDS: Morphine 4 MG/ML VIAL (1 ml) IV ONE (01:37)
[2023-06-19] MEDS: Iodixanol (CONTRAST) 320 MG/ML 100 ML SDV IV ONE (01:59)
[2023-06-19] MEDS: KCL 10 MEQ/50 ML IVPREMIX 10 MEQ/50 ML BAG IV ONE (02:41)
[2023-06-19] MEDS ORDERED: Ondansetron 4 mg VIAL 2 MG/ML 2 ml VIAL IV PRN (04:18)
[2023-06-19] MEDS ORDERED: Senna TAB 8.6 mg TAB PO PRN (04:18)
[2023-06-19] MEDS ORDERED: Fluticasone NASAL SPRAY 50MCG 16 gm SPRAY BTL INTRANASAL PRN (04:20)
[2023-06-19] MEDS ORDERED: Calcium Carb (TUMS) 500 mg CHEW TAB PO PRN (04:20)
[2023-06-19] MEDS: Potassium Chloride LIQUID 20 MEQ/15 ML LIQUID PO ONE (05:10)
[2023-06-19] MEDS: Lactated Ringers 1000 ml BAG 1,000 ML IV SCH (05:11)
[2023-06-19 06:21] LABS: Hematocrit 36.3 % (38-53); Hemoglobin 12.3 g/dL (13.2-16.3); Mean Corpuscular Hemoglobin 31.3 pg (27-33); Mean Corpuscular Volume 92.1 fL (80-97); Mean Platelet Volume 9.2 fL (7.5-11.2); Platelet Count 180 10^3/uL (150-450); Red Blood Count 3.94 10^6/uL (4.06-5.63); Red Cell Distribution Width 16.2 % (12-17); White Blood Count 12.9 10^3/uL (3.6-10.2)
[2023-06-19 06:47] LABS: Calcium 9.2 mg/dL (8.6-10.3); Creatinine, Serum 0.83 mg/dL (0.67-1.17); Potassium 3.7 mmol/L (3.5-5.0); eGFR CKD-EPI 84.7 (>60)
[2023-06-19 06:51] LABS: ABS Basophils 0.1 10^3/uL (0.0-0.1); ABS Lymphocytes 2.7 10^3/uL (1.0-4.8); ABS Neutrophils 8.1 10^3/uL (1.5-7.6); Eosinophil % 0.2 %; Lymphocyte % 20.9 %; RBC Morphology Normal (Normal)
[2023-06-19] MEDS: CMCS: Fidaxomicin 200 mg TAB (NF) PO ONE (10:08)
[2023-06-19] MEDS: CMCS: Mirabegron 25 mg ER TAB (NF) PO SCH (10:08)
[2023-06-19] MEDS: Cholecalciferol (VIT D3) 1,000 unit TAB PO SCH (10:10)
[2023-06-19] MEDS: Timolol 0.5% OPTH.SOL BTL BOTH EYES SCH (10:13)
[2023-06-20 07:25] LABS: ABS Eosinophils 0.1 10^3/uL (0.0-0.5); ABS Lymphocytes 2.6 10^3/uL (1.0-4.8); ABS Monocytes 1.4 10^3/uL (0.0-1.1); ABS Neutrophils 5.1 10^3/uL (1.5-7.6); ABS Nucleated RBC 0.01 10^3/ul; Eosinophil % 0.9 %; Hematocrit 36.6 % (38-53); Hemoglobin 12.3 g/dL (13.2-16.3); Lymphocyte % 28.5 %; Mean Corpuscular Hemoglobin 31.1 pg (27-33); Mean Corpuscular Hgb Conc 33.6 g/dL (31-36); Mean Corpuscular Volume 92.7 fL (80-97); Mean Platelet Volume 9.1 fL (7.5-11.2); Nucleated Red Blood Cells % 0.1 %/100WBC (0.0-0.8); Platelet Count 164 10^3/uL (150-450); Red Blood Count 3.95 10^6/uL (4.06-5.63); Red Cell Distribution Width 16.6 % (12-17); White Blood Count 9.2 10^3/uL (3.6-10.2)
[2023-06-20 07:40] LABS: Calcium 8.9 mg/dL (8.6-10.3); Creatinine, Serum 0.8 mg/dL (0.67-1.17); Magnesium 1.8 mg/dL (1.9-2.7); Potassium 3.1 mmol/L (3.5-5.0); eGFR CKD-EPI 85.7 (>60)
[2023-06-20] MEDS: Potassium Chloride LIQUID 20 MEQ/15 ML LIQUID PO ONE (08:29)
[2023-06-20] MEDS: Magnesium Sulfate 2 gm BAG 2 GM/50 ML BAG IVPB ONE (08:29)
[2023-06-20] MEDS: KCL 20 MEQ/100 ML IVPREMIX 20 MEQ/100 ML BAG IV SCH (11:26)
[2023-06-20] MEDS: DICLOFENAC 1% TOPICAL PRN (13:02)
[2023-06-20] MEDS: IPRATROPIUM BR 0.03% BOTH NARES SCH (20:18)
[2023-06-21 07:01] LABS: ABS Eosinophils 0.1 10^3/uL (0.0-0.5); ABS Lymphocytes 2.4 10^3/uL (1.0-4.8); ABS Monocytes 0.9 10^3/uL (0.0-1.1); ABS Neutrophils 3.8 10^3/uL (1.5-7.6); Eosinophil % 0.9 %; Hematocrit 35.8 % (38-53); Lymphocyte % 33.3 %; Mean Corpuscular Hemoglobin 31.1 pg (27-33); Mean Corpuscular Hgb Conc 33.6 g/dL (31-36); Mean Corpuscular Volume 92.4 fL (80-97); Mean Platelet Volume 8.9 fL (7.5-11.2); Platelet Count 186 10^3/uL (150-450); Red Blood Count 3.87 10^6/uL (4.06-5.63); Red Cell Distribution Width 16.5 % (12-17); White Blood Count 7.3 10^3/uL (3.6-10.2)
[2023-06-21 07:19] LABS: Calcium 8.5 mg/dL (8.6-10.3); Creatinine, Serum 0.85 mg/dL (0.67-1.17); Phosphorus 2.9 mg/dL (2.5-5.0); Potassium 3.8 mmol/L (3.5-5.0); eGFR CKD-EPI 84.1 (>60)
[2023-06-22 08:18] LABS: ABS Lymphocytes 2.5 10^3/uL (1.0-4.8); ABS Monocytes 0.8 10^3/uL (0.0-1.1); ABS Neutrophils 4.8 10^3/uL (1.5-7.6); ABS Nucleated RBC 0.01 10^3/ul; Eosinophil % 0.6 %; Hematocrit 34.4 % (38-53); Hemoglobin 11.8 g/dL (13.2-16.3); Lymphocyte % 30.5 %; Mean Corpuscular Hemoglobin 31.3 pg (27-33); Mean Corpuscular Hgb Conc 34.3 g/dL (31-36); Mean Corpuscular Volume 91.3 fL (80-97); Mean Platelet Volume 8.6 fL (7.5-11.2); Nucleated Red Blood Cells % 0.1 %/100WBC (0.0-0.8); Platelet Count 201 10^3/uL (150-450); Red Blood Count 3.77 10^6/uL (4.06-5.63); White Blood Count 8.2 10^3/uL (3.6-10.2)
[2023-06-22 08:38] LABS: Calcium 8.7 mg/dL (8.6-10.3); Creatinine, Serum 0.81 mg/dL (0.67-1.17); Magnesium 1.8 mg/dL (1.9-2.7); eGFR CKD-EPI 85.3 (>60)
[2023-06-24 06:10] LABS: ABS Eosinophils 0.1 10^3/uL (0.0-0.5); ABS Lymphocytes 2.6 10^3/uL (1.0-4.8); ABS Monocytes 0.7 10^3/uL (0.0-1.1); ABS Neutrophils 6.1 10^3/uL (1.5-7.6); ABS Nucleated RBC 0.02 10^3/ul; Eosinophil % 0.8 %; Hematocrit 35.1 % (38-53); Hemoglobin 12.2 g/dL (13.2-16.3); Lymphocyte % 27.2 %; Mean Corpuscular Hemoglobin 31.6 pg (27-33); Mean Corpuscular Hgb Conc 34.7 g/dL (31-36); Mean Corpuscular Volume 91.1 fL (80-97); Mean Platelet Volume 8.2 fL (7.5-11.2); Nucleated Red Blood Cells % 0.2 %/100WBC (0.0-0.8); Platelet Count 236 10^3/uL (150-450); Red Blood Count 3.85 10^6/uL (4.06-5.63); Red Cell Distribution Width 16.2 % (12-17); White Blood Count 9.4 10^3/uL (3.6-10.2)
[2023-06-24 06:24] LABS: Calcium 9.1 mg/dL (8.6-10.3); Creatinine, Serum 0.86 mg/dL (0.67-1.17); Magnesium 1.8 mg/dL (1.9-2.7); Potassium 3.9 mmol/L (3.5-5.0); eGFR CKD-EPI 83.8 (>60)
[2023-06-24 09:46] LABS: Rapid COVID-19 Molecular Undetected (Undetected)
[2023-06-24 15:47] VITALS: BP 150/69
== END 2023-06-24 19:25 | disposition home or self-care (01) | DRG 371 ==
LOC: ED 20:57 → EDHOLD 20:57 → SUATTDRO 06-19 03:37 → SSU 06-19 10:29 → MED 06-19 23:01
PROVIDERS: ADMIT Internal Medicine; ATTEND Hospitalist

== ENCOUNTER 2024-05-22 13:23 | Inpatient (IN) ==
[2024-05-22] MEDS: Albuterol/Ipratropium NEB.SOL (2.5/0.5 MG) 3 ML NEB.SOLN INH ONE (14:16)
[2024-05-22 14:54] LABS: ABS Basophils 0.1 10^3/uL (0.0-0.1); ABS Eosinophils 0.2 10^3/uL (0.0-0.5); ABS Lymphocytes 2.2 10^3/uL (1.0-4.8); ABS Monocytes 0.8 10^3/uL (0.0-1.1); ABS Neutrophils 3.8 10^3/uL (1.5-7.6); Eosinophil % 2.4 %; Hematocrit 35.8 % (38-53); Hemoglobin 12.3 g/dL (13.2-16.3); Lymphocyte % 31.1 %; Mean Corpuscular Hemoglobin 32.6 pg (27-33); Mean Corpuscular Hgb Conc 34.4 g/dL (31-36); Mean Corpuscular Volume 94.7 fL (80-97); Mean Platelet Volume 8.7 fL (7.5-11.2); Platelet Count 214 10^3/uL (150-450); Red Blood Count 3.78 10^6/uL (4.06-5.63); Red Cell Distribution Width 14.9 % (12-17)
[2024-05-22 15:08] LABS: INR 1.79 (0.85-1.14)
[2024-05-22 15:23] LABS: Albumin 3.7 g/dL (3.5-5.7); Albumin/Globulin Ratio 1.9 (1-3); Calcium 8.9 mg/dL (8.6-10.3); Creatinine, Serum 0.89 mg/dL (0.67-1.17); Potassium 4.2 mmol/L (3.5-5.0); Total Bilirubin 0.6 mg/dL (0.2-1.0); Total Protein 5.7 g/dL (6.4-8.9); eGFR CKD-EPI 82.4 (>60)
[2024-05-22] MEDS: methylPREDNISolone SOD SUCC 125 mg 2 ML VIAL IV ONE (16:11)
[2024-05-22] MEDS: Albuterol/Ipratropium NEB.SOL (2.5/0.5 MG) 3 ML NEB.SOLN INH SCH (16:11)
[2024-05-22] MEDS: Furosemide 40 mg/4 ml IV VIAL IV ONE (16:11)
[2024-05-22 16:15] LABS: High Sensitivity Troponin 1 Hr 45 pg/mL (<20)
[2024-05-22 16:56] LABS: Urine Appearance Clear; Urine Bilirubin Negative (Negative); Urine Blood Trace (Negative); Urine Color Light-Yellow; Urine Glucose Negative (Negative); Urine Ketones Negative (Negative); Urine Nitrite Negative (Negative); Urine Protein Negative (Negative); Urine Specific Gravity 1.018 (1.002-1.030); Urine Urobilinogen Negative (Negative); Urine pH 5.5 (5.0-8.0)
[2024-05-22 17:04] LABS: Urine Bacteria Absent /HPF (Absent); Urine Red Blood Cell 1+(3-5/hpf) /HPF (0-Trace); Urine White Blood Cell Trace(0-5/hpf) /HPF (0-Trace)
[2024-05-22] MEDS ORDERED: Senna TAB 8.6 mg TAB PO PRN (18:01)
[2024-05-22] MEDS ORDERED: Albuterol/Ipratropium NEB.SOL (2.5/0.5 MG) 3 ML NEB.SOLN INH PRN (18:17)
[2024-05-22 19:34] LABS: C Reactive Protein 9.87 mg/L (<8.01)
[2024-05-23] MEDS: Azithromycin 500 mg/250 ml NS 500 MG/250 ML BAG IVPB ONE ×2 (06:18→08:16)
[2024-05-23 06:34] LABS: ABS Lymphocytes 1.5 10^3/uL (1.0-4.8); ABS Monocytes 0.1 10^3/uL (0.0-1.1); ABS Neutrophils 4.5 10^3/uL (1.5-7.6); ABS Nucleated RBC 0.01 10^3/ul; Hematocrit 36.6 % (38-53); Hemoglobin 12.4 g/dL (13.2-16.3); Lymphocyte % 24.1 %; Mean Corpuscular Hgb Conc 33.9 g/dL (31-36); Mean Corpuscular Volume 94.3 fL (80-97); Mean Platelet Volume 8.6 fL (7.5-11.2); Nucleated Red Blood Cells % 0.1 %/100WBC (0.0-0.8); Platelet Count 221 10^3/uL (150-450); Red Blood Count 3.88 10^6/uL (4.06-5.63); White Blood Count 6.2 10^3/uL (3.6-10.2)
[2024-05-23 07:16] LABS: Calcium 8.7 mg/dL (8.6-10.3); Creatinine, Serum 0.98 mg/dL (0.67-1.17); Magnesium 1.8 mg/dL (1.9-2.7); Potassium 4.3 mmol/L (3.5-5.0); eGFR CKD-EPI 74.2 (>60)
[2024-05-23] MEDS: Albuterol/Ipratropium NEB.SOL (2.5/0.5 MG) 3 ML NEB.SOLN INH SCH (07:46)
[2024-05-23] MEDS: Furosemide 20 mg/2 ml IV VIAL IV SLOW PU ONE (11:41)
[2024-05-23] MEDS: CMC:Mirabegron 25 mg ER TAB (NF) PO SCH (14:52)
[2024-05-23] MEDS: Psyllium PAK PO SCH (14:52)
[2024-05-23] MEDS: Timolol 0.5% OPTH.SOL BTL BOTH EYES SCH (14:53)
[2024-05-23 15:29] LABS: Ferritin 77.4 ng/mL (24-336)
[2024-05-24 06:40] LABS: ABS Monocytes 1.1 10^3/uL (0.0-1.1); ABS Neutrophils 8.6 10^3/uL (1.5-7.6); Hematocrit 31.3 % (38-53); Lymphocyte % 17.3 %; Mean Corpuscular Hemoglobin 33.1 pg (27-33); Mean Corpuscular Hgb Conc 35.2 g/dL (31-36); Mean Platelet Volume 8.7 fL (7.5-11.2); Platelet Count 219 10^3/uL (150-450); Red Blood Count 3.33 10^6/uL (4.06-5.63); Red Cell Distribution Width 14.9 % (12-17); White Blood Count 11.7 10^3/uL (3.6-10.2)
[2024-05-24 07:04] LABS: Calcium 8.9 mg/dL (8.6-10.3); Creatinine, Serum 1.1 mg/dL (0.67-1.17); Magnesium 1.9 mg/dL (1.9-2.7); Phosphorus 3.4 mg/dL (2.5-5.0); Potassium 4.2 mmol/L (3.5-5.0); eGFR CKD-EPI 64.6 (>60)
[2024-05-24] MEDS: Albuterol/Ipratropium NEB.SOL (2.5/0.5 MG) 3 ML NEB.SOLN INH SCH (14:10)
[2024-05-25 06:24] LABS: ABS Lymphocytes 2.6 10^3/uL (1.0-4.8); ABS Monocytes 0.9 10^3/uL (0.0-1.1); ABS Neutrophils 5.8 10^3/uL (1.5-7.6); Eosinophil % 0.2 %; Hematocrit 32.2 % (38-53); Hemoglobin 11.4 g/dL (13.2-16.3); Mean Corpuscular Hemoglobin 33.3 pg (27-33); Mean Corpuscular Hgb Conc 35.4 g/dL (31-36); Mean Corpuscular Volume 94.1 fL (80-97); Mean Platelet Volume 8.8 fL (7.5-11.2); Platelet Count 197 10^3/uL (150-450); Red Blood Count 3.42 10^6/uL (4.06-5.63); White Blood Count 9.3 10^3/uL (3.6-10.2)
[2024-05-25 06:41] LABS: Calcium 9.1 mg/dL (8.6-10.3); Creatinine, Serum 0.93 mg/dL (0.67-1.17); Potassium 4.2 mmol/L (3.5-5.0)
[2024-05-25] MEDS: Albuterol/Ipratropium NEB.SOL (2.5/0.5 MG) 3 ML NEB.SOLN INH SCH (09:34)
[2024-05-26] MEDS: Labetalol IV 5 MG/ML 20 ml VIAL IV PUSH ONE (05:20)
[2024-05-26] MEDS: Albuterol/Ipratropium NEB.SOL (2.5/0.5 MG) 3 ML NEB.SOLN INH SCH (10:31)
[2024-05-26 14:05] VITALS: BP 155/77
[2024-05-26] MEDS ORDERED: Albuterol/Ipratropium NEB.SOL (2.5/0.5 MG) 3 ML NEB.SOLN INH SCH (19:00)
== END 2024-05-26 16:25 | disposition home or self-care (01) | DRG 190 ==
LOC: ED 13:23 → EDHOLD 13:23 → SUATTDRO 18:01 → MED 05-23 12:51
PROVIDERS: ADMIT Student in an Organized Health Care Education/Training Program; ATTEND Internal Medicine